=== PATIENT | male | born 1945 | race Caucasian/White ===

== ENCOUNTER → 2017-03-01 | Outpatient (CLI) | payer OTHER ==
[~2017-03-01] MED LIST: ASPI81TA28 PO; ATOR-24 PO; CLOP1TAB15 PO; IBUP-1450 PO; METO-478 PO; MULT-189 PO; MULT-506 PO; OXYC-57 PO; TPRSR50 PO
[2017-03-01 12:29] LABS: HEMATOCRIT 46.2 % (42-52); MEAN CORPUSCULAR HEMOGLOBIN 31.4 pg (25-34); MEAN CORPUSCULAR HGB CONC 33.8 g/dl (32-36); MEAN PLATELET VOLUME 10.4 fL (7.4-10.4); PLATELET COUNT 243 K/uL (130-400); RED BLOOD COUNT 4.97 M/uL (4.7-6.1); WHITE BLOOD COUNT 6.36 K/uL (4.8-10.8)
[2017-03-01 12:57] LABS: ALT/SGPT 22 U/L (12-78); AST/SGOT 9 U/L (15-37); BLOOD UREA NITROGEN 15 mg/dl (7-18); BUN/CREATININE RATIO 13.7 (10-20); CALCIUM 8.5 mg/dl (8.5-10.1); CARBON DIOXIDE 29 mmol/L (21-32); CHLORIDE 107 mmol/L (98-107); GLUCOSE 119 mg/dl (70-99); POTASSIUM 4.2 mmol/L (3.5-5.1); SODIUM 141 mmol/L (136-145)
[2017-03-01 13:08] LABS: ALB/GLOB RATIO 0.9 (0.9-2); ALKALINE PHOSPHATASE 93 U/L (45-117); CHOLESTEROL 115 mg/dl (0-200); CHOLESTEROL/HDL RATIO 2.9; HDL CHOLESTEROL 39 mg/dl; LDL CHOLESTEROL CALCULATED 41 mg/dl; TRIGLYCERIDES 173 mg/dl (0-150); VERY LOW DENSITY LIPOPROT CALC 35 mg/dl
== END | disposition home or self-care (01) ==
LOC: C.LABPVFM 07:56
PROVIDERS: ATTEND Family Medicine
DX: Z01.812 Encounter for preprocedural laboratory examination (principal); R73.01 Impaired fasting glucose; E78.5 Hyperlipidemia, unspecified; E04.2 Nontoxic multinodular goiter; I25.10 Atherosclerotic heart disease of native coronary artery without angina pectoris; Z98.61 Coronary angioplasty status

== ENCOUNTER 2017-03-14 06:18 | Observation (INO) | payer OTHER ==
[~2017-03-14] VITALS: Ht 170.2 cm; Wt 73.0 kg
[~2017-03-14 06:18] MED LIST changes: -METO-478 PO; -MULT-189 PO; -TPRSR50 PO
[2017-03-14] MEDS ORDERED: METO-478 PO (06:47)
[2017-03-14] MEDS ORDERED: MULT-189 PO (06:47)
[2017-03-14 07:06] VITALS: BP 125/85; PULSE 83; TEMP 36.5; O2SAT 97; BMI 25.0
--- NOTE | 2017-03-14 07:20 | History & Physical Bridge Note ---
H&P Re-Evaluation Bridge Note: I have examined the patient, reviewed the History & Physical and in the interval since the performance of the History & Physical I have noted the following changes of clinical significance: Continues to have frequent PVCs. No changes noted
--- NOTE | 2017-03-14 07:23 | Procedure Note ---
Pre-Mod Sedation Assessment General Date of Moderate Sedation: Mar 14, 2017. Review Cardiovascular: + abnormal rhythm (PVCs) Lungs: + wheezing (Mild expiratory wheezing) Airway Class: II Pre-Sedation Airway Assessment Oral Cavity: WNL Able to Visualize Vocal Cords: No Short Thick Neck: No Hx of Sleep Apnea: No Smoking Status: Former Smoker Mallampati Classification: Class III ASA Classification: Class III Procedure Planning Contraindications-for Mod Sed: None Yes Notes The planned sedation has been discussed with the patient and consent obtained. I have identified the patient, determined the appropriateness of sedation and have assessed the patient immediately prior to the procedure. All medicine(s) and interventions are by my order.
[2017-03-14] MEDS ORDERED: MIDAZOLAM HCL 5 MG/ML 1 ML VIAL ONE ×3 (07:37→10:08)
[2017-03-14] MEDS ORDERED: FENTANYL CITRATE INJ 50 MCG/1 ML 2 ML VIAL ONE ×3 (07:38→10:07)
[2017-03-14] MEDS ORDERED: HEPARIN SOD (PORCINE) 1000 UNIT/ML 10 ML VIAL ONE (08:29)
[2017-03-14] MEDS ORDERED: ACETAMINOPHEN 325 MG TAB PO PRN (10:45)
[2017-03-14] MEDS ORDERED: OXYCODONE/ACETAMINOPHEN 5-325 TAB PO PRN (10:45)
--- NOTE | 2017-03-14 10:47 | Cardiology Procedure Brief Nt ---
Preliminary Cardiology Note Procedure Date Mar 14, 2017. Pre-Procedure Diagnosis PVCs cardiomyopathy Post-Procedure Diagnosis same Procedure(s) Performed attempted ablation of PVCs Buncher Hand Williams Disbursement Clerk(s) none Estimated Blood Loss 10cc Preliminary Findings RVOT PVCs which could not be eliminated with ablation in the RVOT Recommendations Bedrest for 4 hours. COntinue medications. discuss ICD Specimens none Complication(s) None Disposition PCU
[2017-03-14 11:00] VITALS: BP 105/76; PULSE 79; TEMP 36.5; O2SAT 92; Ht 170.2 cm; Wt 73.0 kg
[2017-03-14] MEDS ORDERED: ONDANSETRON INJ 2 MG/ML 2 ML VIAL ONE (11:35)
[2017-03-14 11:39] VITALS: BP 113/57; PULSE 87; TEMP 36.9; O2SAT 94
[2017-03-14] MEDS ORDERED: IV FLUIDS COMPLETED PRN (13:30)
--- NOTE | 2017-03-14 14:28 | OPERATIVE REPORT ---
DATE OF OPERATION: 03/14/2017 PROCEDURE PERFORMED: 1. Ablation of ventricular tachycardia. 2. Complete electrophysiologic testing including pacing from the left atrium via the coronary sinus. 3. Three-dimensional electroanatomical mapping. 4. Ultrasound-guided vascular access. STAFF PAINTER AIRBRUSH: Dr. Fidel Kramer. INDICATION: Mr. Eleno Cotto is a 72-year-old gentleman with a history of cardiomyopathy. The patient was noted on outpatient Holter monitoring frequent PVCs and similar morphology, and based on the frequency of his PVCs and the potential for an outflow tract source, he was felt to be a reasonable candidate for an attempt at ablation in hopes that his cardiomyopathy would improve. PROCEDURE IN DETAIL: The patient was informed of risks, benefits and alternatives to the intended procedure. He understood such and wished to proceed. He was taken to the electrophysiology suite in a fasting state. Conscious sedation was administered per protocol and the patient was monitored electrocardiographically throughout today's procedure. The right internal jugular area and right femoral areas were prepped and draped in the usual sterile fashion. These areas were anesthetized using subcutaneous administration of lidocaine solution. Right internal jugular vein was subsequently accessed using modified Seldinger technique under ultrasound guidance and a 5-Indian venous sheath was placed at this site over a guidewire. The right femoral vein was accessed 3 times using modified Seldinger technique. Sheaths were placed over the guidewire at these sites and used to facilitate passage of the EP catheters through their respective chambers under fluoroscopic guidance. These included right ventricular coronary sinus and His bundle catheters. At this point, preparatory mapping catheter was also advanced through the right ventricle and electroanatomical mapping was performed in order to identify the focus of the PVCs. Once I identified, radiofrequency lesions were placed in the power-limited mode with some suppression of the arrhythmia. Due to inability to permanent suppress the PVCs, the ablation was discontinued. Standard electrophysiologic testing was then performed in order to characterize the baseline conduction system prior to removal of the catheters. At the conclusion of the procedure, catheters and sheath were removed, hemostasis was achieved at the access sites using manual pressure. The patient tolerated the procedure well. There were no immediate complications. FINDINGS: 1. Electroanatomical mapping. The patient's PVCs appeared to emanate from the septal portion of the right ventricular outflow tract, approximately 1 cm below the pulmonary valve. Ablation at this site tended to suppress the arrhythmias during power application, but PVCs returned once the power application was discontinued. Ablation was performed at multiple sites in this region with variable degrees of success. POST-ABLATION INTERVALS: Cycle length in the atrium 650 milliseconds, cycle length in the ventricle 666 milliseconds. [place] interval 172 milliseconds, QRS duration 96 milliseconds, QT interval 396 milliseconds, corrected QT interval 485 milliseconds, AH interval 86 milliseconds, HVinterval 58 milliseconds. AV Wenckebach occurred at 340 milliseconds. VA Wenckebach occurred at 350 milliseconds. It should be noted that retrograde conduction was concentric in nature. AV node effective refractory period with programmed stimulation in the atrium was 260 milliseconds. There was no evidence of dual AV margarito physiology. IMPRESSION: 1. Frequent premature ventricular contractions emanating from the right ventricular outflow tract, possibly epicardial or endocardial in the left ventricular outflow tract. 2. Inability to permanently eliminate premature ventricular contractions with endocardial ablation from the right ventricular outflow tract. 3. Normal baseline interval subsequent to ablation. 4. No evidence of accessory pathway conduction or dual atrioventricular margarito physiology. PLAN: The patient will be sent to the OR for a period of monitoring. After 4 hours, he will ambulate. If ambulatory and good hemostasis had been achieved, he will be discharged home with instructions to refrain from heavy lifting for a period of 7 days' time. I attest to the content of the Intraoperative Record and any orders documented therein. Any exceptions are noted below. DARREL
[2017-03-14 15:04] VITALS: BP 130/81; PULSE 79; TEMP 36.4; O2SAT 90
--- NOTE | 2017-03-14 16:16 | Discharge Instructions ---
Discharge Instructions Procedure Procedure Date: Mar 14, 2017. Reason for Visit: Ventricular Tachycardia * To Do*. Discharge Discharge Date: Mar 14, 2017. Discharge Diagnosis: PVC Last Recorded Wt (Kilograms): 73.000 Medications Stopped Medication(s): none Anesthesia Post Anesthesia Instructions: If you have had General Anesthesia or IV Sedation: * Do not drive today. * Resume driving when surgeon permits. * Do not make important decisions or sign legal documents today. * Call surgeon for: 1. Temperature elevations greater than 101 degrees F. 2. Uncontrollable pain. 3. Excessive bleeding. 4. Persistent nausea and vomiting. 5. Medication intolerance (nausea, vomiting or rash). * For nausea and vomiting use only clear liquids such as: tea, soda, bouillon until nausea subsides, then gradually increase diet as tolerated. * If you have any concerns or questions, call your surgeon's office. If physician is unavailable and it is an emergency, call 911 or go to the nearest emergency room. Instructions Activity Recommendations: lifting limitation Return to School/Work: with no limitations Recommended Home Diet: low sodium, low cholesterol Allergies: Coded Allergies: No Known Allergies (Unverified , 04/20/15) Provider Instructions No lifting >10# for 5 days. Follow Up Additional Instructions: May remove bandages in the morning. Keep sites clean and dry but may shower/ bathe normally. Ike Perezy Recommendations: Call your doctor if: * Temperature above 101 degrees * Pain not relieved by pain medicine ordered * There is increased drainage or redness from any incision * You have any unanswered questions or concerns. Your Doctors Instructions noted above were prepared by provider Jatin Kramer. Patient Signature Section: Patient Instructions Signature Page Eleno Cotto Patient (or Guardian) Signature/Date: I have read and understand the instructions given to me by my caregivers. Caregiver/RN/Doctor Signature/Date: The above-named patient and/or guardian has received patient instructions on this date. + Original Patient Signature Page (only) stays with chart. Please make copy for patient.
--- NOTE | 2017-03-14 16:17 | Procedure Note ---
Post-Mod Sedation Assessment General Date of Moderate Sedation Mar 14, 2017. Vital Signs: Vital Signs Past 12 Hours Date Time Temp Pulse Resp B/P Pulse Ox O2 Delivery O2 Flow Rate FiO2 03/14/17 15:04 36.4 79 18 130/81 90 Room Air 03/14/17 11:00 36.5 79 16 105/76 92 Room Air 03/14/17 10:50 68 16 124/78 92 Room Air 03/14/17 10:45 70 16 105/78 96 Room Air 03/14/17 10:40 65 16 118/73 96 Room Air 03/14/17 10:35 74 16 112/74 96 Room Air 03/14/17 10:30 77 16 119/77 96 Room Air 03/14/17 07:06 36.5 83 16 125/85 97 Room Air Review - Discharge Criteria Vital Signs Stable: Yes Alert/Oriented/Conversant: Yes Returned to Baseline Mental St: Yes Nausea Absent/Minimal: Yes Pain/Discomfort/Absent/Minimal: Yes Normal/Baseline Respirations: Yes Active Bleeding?: No Pt Received D/C Instructions: N/A Prescriptions Given: None Specific Proced. D/C Criteria Distal Pulses Present (Cardiac: Yes Groin site assessed-Card Cath: Yes Voided Prior To Discharge: N/A Discharged Patients Adult Escort/Transportation: Yes
--- NOTE | 2017-03-14 16:18 | Procedure Note ---
Post-Moderate Sedation Plan General Date of Moderate Sedation Mar 14, 2017. Vital Signs: Vital Signs Past 12 Hours Date Time Temp Pulse Resp B/P Pulse Ox O2 Delivery O2 Flow Rate FiO2 03/14/17 15:04 36.4 79 18 130/81 90 Room Air 03/14/17 11:00 36.5 79 16 105/76 92 Room Air 03/14/17 10:50 68 16 124/78 92 Room Air 03/14/17 10:45 70 16 105/78 96 Room Air 03/14/17 10:40 65 16 118/73 96 Room Air 03/14/17 10:35 74 16 112/74 96 Room Air 03/14/17 10:30 77 16 119/77 96 Room Air 03/14/17 07:06 36.5 83 16 125/85 97 Room Air Review - Discharge Plan Post Moderate Sedation Plan: On clinical assessment, the patient appears to have tolerated the conscious sedation without complications. Patient is recovering as anticipated. Patient will continue to be monitored by nursing and may be discharged when conscious sedation discharge criteria are met.
[2017-03-14 16:39] VITALS: BP 130/81; PULSE 79; TEMP 36.4; O2SAT 90
--- NOTE | 2017-03-19 10:45 | Discharge Summary ---
Discharge Summary Admission Date: Mar 14, 2017 at 10:46 Discharge Date: Mar 14, 2017 Discharge Disposition: Home Primary Diagnosis: PVCs Procedures: Attempted PVC ablation Discharge Instructions Last Recorded Wt (Kilograms): 73.000 Activity Recommendations: lifting limitation Return to School/Work: no limitations Diet At Discharge: resume previous diet Allergies: Coded Allergies: No Known Allergies (Unverified , 04/20/15) Home Health Services: none Additional Instructions: NO lifting >10# for 7 days Special Care: Call your doctor if: * Temperature above 101 degrees * Pain not relieved by pain medicine ordered * There is increased drainage or redness from any incision * You have any unanswered questions or concerns. Avoid all tobacco products. If you need help to stop smoking, call [place]'s FREE QUITLINE at . This is a free call. Hospital Course Patient underwent uncomplicated attempt at PVC ablation. PVCs could not be eliminated from the right ventricular outflow tract. He will continue on medical therapy and follow-up for discussion regarding implantation of an ICD. Total time spent on discharge = This includes examination of the patient, discharge planning, medication reconciliation, and communication with other providers.
== END 2017-03-14 18:00 | disposition home or self-care (01) ==
LOC: C.EP 06:18 → C.2T 10:46
PROVIDERS: ADMIT Internal Medicine Clinical Cardiac Electrophysiology; ATTEND Internal Medicine Clinical Cardiac Electrophysiology
DX: I42.9 Cardiomyopathy, unspecified (principal); I49.3 Ventricular premature depolarization; I25.10 Atherosclerotic heart disease of native coronary artery without angina pectoris; E78.5 Hyperlipidemia, unspecified; Z79.82 Long term (current) use of aspirin; Z79.899 Other long term (current) drug therapy; I71.4 Abdominal aortic aneurysm, without rupture; Z98.61 Coronary angioplasty status; Z95.828 Presence of other vascular implants and grafts; Z87.891 Personal history of nicotine dependence; Z83.3 Family history of diabetes mellitus; Z82.5 Family history of asthma and other chronic lower respiratory diseases

== ENCOUNTER 2017-03-21 06:31 | Observation (INO) | payer OTHER ==
[2017-03-21] VITALS (11 sets, daily range): BP systolic 107–146; BP diastolic 67–94; PULSE 68–82; TEMP 36.1–36.5; O2SAT 91–95; Ht 170.2 cm; Wt 69.8 kg
[~2017-03-21] VITALS: Ht 170.2 cm; Wt 69.8 kg
[~2017-03-21 06:31] MED LIST changes: +CEFAZOLIN 1000MG/55 ML D5W IV SCH; -CLOP1TAB15 PO; +LACTATED RINGER'S 1000ML 1,000 ML IV SCH; +METO-478 PO; +MULT-189 PO; -OXYC-57 PO; +PATIENT'S HEIGHT AND/OR WEIGHT NEEDED SCH
--- NOTE | 2017-03-21 08:06 | History & Physical Bridge Note ---
H&P Re-Evaluation Bridge Note: I have examined the patient, reviewed the History & Physical and in the interval since the performance of the History & Physical I have noted the following changes of clinical significance:Patient underwent EPS and attempted ablation of PVCs. Thsi was unsuccessful and we have elected to simply proceed with an ICD.
--- NOTE | 2017-03-21 08:07 | Procedure Note ---
Pre-Mod Sedation Assessment General Date of Moderate Sedation: March 21, 2017. Vital Signs: Vital Signs Past 12 Hours Date Time Temp Pulse Resp B/P Pulse Ox O2 Delivery O2 Flow Rate FiO2 03/21/17 07:27 36.1 70 18 146/82 92 Room Air Review Cardiovascular: + abnormal rhythm Pre-Sedation Airway Assessment Oral Cavity: Dentures Able to Visualize Vocal Cords: No Short Thick Neck: No Hx of Sleep Apnea: No Smoking Status: Former Smoker Mallampati Classification: Class III ASA Classification: Class III Procedure Planning Contraindications-for Mod Sed: None Yes (No complications with sedation during his procedure last week. ) Notes The planned sedation has been discussed with the patient and consent obtained. I have identified the patient, determined the appropriateness of sedation and have assessed the patient immediately prior to the procedure. All medicine(s) and interventions are by my order.
[2017-03-21] MEDS ORDERED: MIDAZOLAM HCL 5 MG/ML 1 ML VIAL ONE (08:48)
[2017-03-21] MEDS ORDERED: FENTANYL CITRATE INJ 50 MCG/1 ML 2 ML VIAL ONE (08:48)
[2017-03-21] MEDS ORDERED: LIDOCAINE HCL 1% 20 ML VIAL ONE (08:48)
[2017-03-21] MEDS ORDERED: BUPIVACAINE 0.5 % 5 MG/1 ML MPF 30ML VIAL ONE (08:48)
[2017-03-21] MEDS ORDERED: BACITRACIN OINT 0.9 GM PKT ONE (09:55)
--- NOTE | 2017-03-21 10:06 | Cardiology Procedure Brief Nt ---
Preliminary Cardiology Note Procedure Date March 21, 2017. Pre-Procedure Diagnosis CHF Post-Procedure Diagnosis CHF Procedure(s) Performed dual chamber Medtronic ICD implant Sports Statistician Williams Fish Smoker(s) None Estimated Blood Loss 10cc Medication(s) Fentanyl,versed Preliminary Findings Normal device function Recommendations admit for observation Specimens none Complication(s) None Disposition PCU
[2017-03-21] MEDS ORDERED: ACETAMINOPHEN 325 MG TAB PO PRN (10:15)
[2017-03-21] MEDS: ASPIRIN 81 MG ECTAB PO SCH (11:42)
[2017-03-21] MEDS: METOPROLOL SUCC 25MG EXT REL TAB PO SCH (11:42)
[2017-03-21] MEDS: ATORVASTATIN 40 MG TAB PO SCH (11:42)
[2017-03-21] MEDS ORDERED: IV FLUIDS COMPLETED PRN (11:45)
--- NOTE | 2017-03-21 11:54 | OPERATIVE REPORT ---
DATE OF OPERATION: 03/21/2017 PROCEDURE PERFORMED: Implantation of dual chamber implantable cardioverter-defibrillator. STAFF HOISTING PILE DRIVING ENGINEER: Dr. Fidel Kramer. INDICATION: Mr. Eleno Cotto is a 72-year-old gentleman with a history of ischemic cardiomyopathy. He has a persistently low ejection fraction less than 35%. He is on optimal and guideline directed medical therapy. He has not had myocardial infarction in the past 40 days nor had any revascularization in the last 90 days. He has an anticipated longevity greater than 1 year and therefore was felt to be a good candidate for implantation of ICD as primary prevention against sudden cardiac . A dual chamber device was selected today as the patient will require rate support for both use of beta blockers as well as PVC suppression. PROCEDURE IN DETAIL: The patient was informed of the risks, benefits, and alternatives to the intended procedure. He understood such and would like to proceed. He was taken to the electrophysiology suite in a fasting state. A preoperative antibiotic had been administered. The patient was monitored electrocardiographic throughout today's procedure and conscious sedation was administered per protocol. The left deltopectoral area was prepped and draped in usual sterile fashion. This area was anesthetized using subcutaneous administration of Marcaine and xylocaine solution. An incision was made and dissection carried down to the prepectoralis fascia using sharp dissection. Electrocautery was also employed for dissection as well as for hemostasis. The device pocket was fashioned in the tissues above the pectoral muscles. Subsequent to this maneuver the left axillary vein was accessed twice using modified Seldinger technique. A sheath was placed over guidewire at this site and used to facilitate passage of the leads through their respective chambers under fluoroscopic guidance. This included a right ventricular and right atrial leads. Adequate sensing and threshold parameters were obtained prior to active fixation of this lead to the endocardial surface. The proximal portion of the leads was then sutured to the prepectoral fascia using nonabsorbable suture. The device pocket was irrigated with an antibiotic solution. The leads were then attached to the device. The device and leads were then placed in the pocket. The pocket was closed with 3 layers of absorbable suture. Steri-Strips and sterile dressing were applied. The device was tested noninvasively prior to conclusion of the procedure. The patient tolerated the procedure well. There were no immediate complications. EQUIPMENT USED: 1. New pulse generally skeiner Cyanto, model #AUAF1Q8, serial #[id number]. 2. Right atrial lead skeiner Medtronic, model #4076, serial #[id number]. 3. Right ventricular lead skeiner Medtronic, model #6947M, serial #[id number]. MEASURE DATA: 1. Right atrial lead, P-waves measured 2 millivolts, pacing threshold was 0.5 volts at 0.4 milliseconds with a pacing impendence of 563 ohms. 2. Right ventricular lead R-waves measured 7.9 millivolts, pacing threshold was 0.5 volts at 0.4 milliseconds with a pacing impedance of 574 ohms. IMPRESSION: Successful implantation of dual chamber implantable cardioverter-defibrillator. PLAN: The patient will be monitored in the esparza overnight. Additional dose of antibiotics will be administered. Chest x-ray and reinterrogation of the device will be performed in the morning. Should all parameters be adequate and the patient be feeling well he will be considered for discharge at that time. I attest to the content of the Intraoperative Record and any orders documented therein. Any exceptio ns are noted below.
[2017-03-21] MEDS: CEFAZOLIN IV 1,000 MG in DEXTROSE 5% 50ML 50 ML IV SCH ×2 (16:05→23:21)
[2017-03-21] MEDS: OXYCODONE/ACETAMINOPHEN 5-325 TAB PO PRN ×2 (16:46→23:06)
[2017-03-22 03:07] VITALS: BP 120/75; PULSE 77; TEMP 36.5; O2SAT 92
[2017-03-22 04:00] VITALS: O2SAT 91
[2017-03-22 07:48] VITALS: BP 135/74; PULSE 69; TEMP 36.7; O2SAT 93
[2017-03-22] MEDS ORDERED: METO-478 PO (07:51)
--- NOTE | 2017-03-22 07:54 | Discharge Instructions ---
Discharge Instructions Date of Service March 22, 2017. Admission Reason for Admission: Pvc's * Discharge Discharge Diagnosis / Problem: ICD implant Discharge Goals Goal(s): Improve disease control Activity Recommendations Activity Limitations: as noted below Lifting Limitations: none No lifting left arm above shoulder or behind neck for 6 weeks. Keep wound dry until f/u next week. . Instructions / Follow-Up Instructions / Follow-Up f/u cardiology clinic for nurse wound check 1 week Current Hospital Diet Patient's current hospital diet: AHA Diet (Heart Healthy), Low Sodium Diet (2gm Na) Discharge Diet Recommended Diet: AHA Diet (Heart Healthy), Low Sodium Diet (2gm Na) Fluid Restriction: None Procedures Procedures Performed: ICD implant Pending Studies Studies pending at discharge: no Laboratory Results Lipid Panel Test 03/01/17 08:03 Range/Units Triglycerides Level 173 H 0-150 mg/dl Cholesterol Level 115 0-200 mg/dl HDL Cholesterol 39 mg/dl Cholesterol/HDL Ratio 2.9 LDL Cholesterol, Calculated 41 mg/dl Medical Emergencies . Who to Call and When: Medical Emergencies: If at any time you feel your situation is an emergency, please call 911 immediately. . Non-Emergent Contact Non-Emergency issues call your: Aerial Gunner Call Non-Emergent contact if: you have a fever, your pain is not controlled, your pain is worsening, wound has increased drainage, wound has increased redness, wound has increased pain . . "Provider Documentation" section prepared by Jatin Kramer. . VTE Core Measure Inpt VTE Proph given/why not?: Treatment not indicated
[2017-03-22] MEDS: METOPROLOL SUCC 25MG EXT REL TAB PO SCH (07:56)
[2017-03-22] MEDS: ATORVASTATIN 40 MG TAB PO SCH (07:56)
[2017-03-22] MEDS: ASPIRIN 81 MG ECTAB PO SCH (07:56)
[2017-03-22] MEDS: OXYCODONE/ACETAMINOPHEN 5-325 TAB PO PRN (07:57)
[2017-03-22] MEDS ORDERED: TPRSR50 PO (07:59)
[2017-03-22] MEDS: CEFAZOLIN IV 1,000 MG in DEXTROSE 5% 50ML 50 ML IV SCH (07:59)
--- NOTE | 2017-03-22 08:00 | Procedure Note ---
Post-Moderate Sedation Plan General Date of Moderate Sedation March 22, 2017. Vital Signs: Vital Signs Past 12 Hours Date Time Temp Pulse Resp B/P Pulse Ox O2 Delivery O2 Flow Rate FiO2 03/22/17 04:00 91 Room Air 03/22/17 03:07 36.5 77 19 120/75 92 Room Air 03/21/17 23:59 91 Room Air 03/21/17 23:04 36.5 79 18 135/94 91 Room Air 03/21/17 20:00 Room Air Review - Discharge Plan Post Moderate Sedation Plan: On clinical assessment, the patient appears to have tolerated the conscious sedation without complications. Patient is recovering as anticipated. Patient will continue to be monitored by nursing and may be discharged when conscious sedation discharge criteria are met.
--- NOTE | 2017-03-22 08:01 | DIAGNOSTIC IMAGING REPORT ---
TWO VIEW CHEST CLINICAL HISTORY: Pacemaker implantation. FINDINGS: PA and lateral chest radiographs are compared to study dated 04/20/2015. The PA view is degraded by patient rotation. A 2-lead cardiac AICD is new from 2014. This largely obscures the left upper chest. Leads project over the right atrial appendage and the right ventricle. The heart is enlarged. The pulmonary vasculature is noncongested. A hiatal hernia is observed. Emphysema and chronic interstitial thickening are similar to previous. No airspace consolidation or pleural effusion is identified. There is no pneumothorax. The skeletal structures are osteopenic. Degenerative change and scoliosis are noted in the thoracic spine. IMPRESSION: 1. A 2-lead cardiac AICD has been implanted as detailed above. No pneumothorax is seen post procedure. 2. There is no radiographic evidence of congestive failure. 3. Emphysema. Electronically signed by: Aniket Stacy M.D. 03/22/2017 7:59 AM Dictated Date/Time: 03/22/2017 7:57 AM
--- NOTE | 2017-03-22 08:03 | Discharge Summary ---
Discharge Summary Admission Date: March 21, 2017 at 11:04 Discharge Date: March 22, 2017 Discharge Disposition: Home Primary Diagnosis: cardiomyopathy Procedures: Medtronic dual chamber ICD implant Discharge Instructions Last Recorded Wt (Kilograms): 69.800 Activity Recommendations: limitations as noted below, shower/bathe limit Return to School/Work: no limitations Diet At Discharge: resume previous diet, low sodium Allergies: Coded Allergies: No Known Allergies (Unverified , 03/21/17) Home Health Services: none Special Care: Call your doctor if: * Temperature above 101 degrees * Pain not relieved by pain medicine ordered * There is increased drainage or redness from any incision * You have any unanswered questions or concerns. Avoid all tobacco products. If you need help to stop smoking, call [place]'s FREE QUITLINE at . This is a free call. Admission Physical Exam Wound with some ecchymosis. CXR with good lead position and no PTX. Interrogation reveals normal device function Hospital Course Successful implant of dual chamber ICD without complication Total time spent on discharge = This includes examination of the patient, discharge planning, medication reconciliation, and communication with other providers.
[2017-03-22 09:44] VITALS: BP 135/74; PULSE 69; TEMP 36.7; O2SAT 93
== END 2017-03-22 10:20 | disposition home or self-care (01) ==
LOC: C.ACU 06:31 → C.2T 11:04
PROVIDERS: ADMIT Internal Medicine Clinical Cardiac Electrophysiology; ATTEND Internal Medicine Clinical Cardiac Electrophysiology
DX: I25.5 Ischemic cardiomyopathy (principal); I25.10 Atherosclerotic heart disease of native coronary artery without angina pectoris; I49.3 Ventricular premature depolarization; Z98.61 Coronary angioplasty status; I50.9 Heart failure, unspecified; Z87.891 Personal history of nicotine dependence; E78.5 Hyperlipidemia, unspecified; R73.01 Impaired fasting glucose; E04.2 Nontoxic multinodular goiter; I73.9 Peripheral vascular disease, unspecified; J44.9 Chronic obstructive pulmonary disease, unspecified; Z79.82 Long term (current) use of aspirin; Z79.899 Other long term (current) drug therapy; R01.1 Cardiac murmur, unspecified

== ENCOUNTER → 2017-09-05 | Outpatient (CLI) | payer OTHER ==
[~2017-09-05] MED LIST changes: -CEFAZOLIN 1000MG/55 ML D5W IV SCH; -LACTATED RINGER'S 1000ML 1,000 ML IV SCH; -METO-478 PO; -PATIENT'S HEIGHT AND/OR WEIGHT NEEDED SCH; +TPRSR50 PO
[2017-09-05 12:40] LABS: ESTIMATED AVERAGE GLUCOSE 128 mg/dl; HA1C FLAG Normal (Normal)
[2017-09-05 13:02] LABS: ALT/SGPT 22 U/L (12-78); AST/SGOT 12 U/L (15-37); BLOOD UREA NITROGEN 18 mg/dl (7-18); CALCIUM 8.8 mg/dl (8.5-10.1); CARBON DIOXIDE 29 mmol/L (21-32); CHLORIDE 107 mmol/L (98-107); CREATININE 1.13 mg/dl (0.60-1.40); GLUCOSE 125 mg/dl (70-99); POTASSIUM 4.1 mmol/L (3.5-5.1); SODIUM 140 mmol/L (136-145)
[2017-09-05 13:05] LABS: ALB/GLOB RATIO 0.9 (0.9-2); ALKALINE PHOSPHATASE 113 U/L (45-117); CHOLESTEROL 114 mg/dl (0-200); HDL CHOLESTEROL 38 mg/dl; LDL CHOLESTEROL CALCULATED 51 mg/dl; TRIGLYCERIDES 126 mg/dl (0-150); VERY LOW DENSITY LIPOPROT CALC 25 mg/dl
== END | disposition home or self-care (01) ==
LOC: C.LABPVFM 08:14
PROVIDERS: ATTEND Family Medicine
DX: R73.01 Impaired fasting glucose (principal); E78.5 Hyperlipidemia, unspecified; I71.4 Abdominal aortic aneurysm, without rupture; I25.10 Atherosclerotic heart disease of native coronary artery without angina pectoris; E04.2 Nontoxic multinodular goiter

== ENCOUNTER → 2018-03-06 | Outpatient (CLI) | payer OTHER ==
[2018-03-06 13:17] LABS: ALBUMIN 3.4 gm/dl (3.4-5.0); ALT/SGPT 23 U/L (12-78); AST/SGOT 12 U/L (15-37); BLOOD UREA NITROGEN 17 mg/dl (7-18); CALCIUM 8.7 mg/dl (8.5-10.1); CARBON DIOXIDE 28 mmol/L (21-32); CHOLESTEROL 100 mg/dl (0-200); CREATININE 1.24 mg/dl (0.60-1.40); GLUCOSE 128 mg/dl (70-99); POTASSIUM 4.3 mmol/L (3.5-5.1); SODIUM 141 mmol/L (136-145)
[2018-03-06 13:28] LABS: ALKALINE PHOSPHATASE 105 U/L (45-117); LDL CHOLESTEROL CALCULATED 37 mg/dl; TOTAL PROTEIN 7.4 gm/dl (6.4-8.2)
== END | disposition home or self-care (01) ==
LOC: C.LABPVFM 08:23
PROVIDERS: ATTEND Family Medicine
DX: R73.01 Impaired fasting glucose (principal); E78.5 Hyperlipidemia, unspecified; I71.4 Abdominal aortic aneurysm, without rupture; I25.10 Atherosclerotic heart disease of native coronary artery without angina pectoris; E04.2 Nontoxic multinodular goiter; J44.9 Chronic obstructive pulmonary disease, unspecified

== ENCOUNTER 2022-06-23 08:41 | Inpatient (IN) ==
--- NOTE | 2022-06-23 09:00 | Emergency Department Note ---
Impression & Plan Acute CVA (cerebrovascular accident), COPD (chronic obstructive pulmonary disease), Thrombolytic therapy administered within 2 hours of onset of symptoms ED Provider Note CHIEF COMPLAINT: Shortness of breath, stroke alert HISTORY OF PRESENT ILLNESS: This 77-year-old male patient presents to the emergency department by ambulance after a call for shortness of breath that began at 0700. Patient has a history of COPD and was given 2 DuoNeb treatments by the S crew. ALS arrived and gave the patient 125 mg of IV Solu-Medrol. The patient developed some right arm ataxia and aphasia. Patient confirmed that this was not his baseline. He has no history of strokes. He does not take blood thinners. He does have a relator secondary to a failed ablation for PVCs, ischemic cardiomyopathy. He has a history of CAD status post stent, AAA, COPD, hyperlipidemia and is diabetic. Onset of symptoms was in front of EMS just prior to arrival around 8:20 AM. He denies any recent trauma or falls. He does not take any blood thinners but does take baby aspirin. REVIEW OF SYSTEMS: A review of systems was performed with positives and pertinent negatives listed in the history of present illness. 10 systems were reviewed and are otherwise negative. ALLERGIES: see below MEDICATIONS: see below PMH: see below SOCIAL HISTORY: see below DDx: Infection, dehydration, metabolic abnormality, hypo/hyperglycemia, electrolyte disturbance, anemia, hypoxia, cardiac sources, intracerebral event, toxicologic, neurologic, as well as other pathologies. PHYSICAL EXAM: Vital signs reviewed. General: Chronically ill-appearing 77-year-old male in no significant distress. HEENT: No scleral icterus, PERRLA, neck supple. Atraumatic. Cardiovascular: Regular rate and rhythm, no extra sounds. Pulmonary: Clear to auscultation bilaterally, normal work of breathing. Abdomen: Soft, nontender, nondistended, positive bowel sounds. Musculoskeletal: Atraumatic, no peripheral edema. Neurologic: Awake, alert and seemingly oriented but states he is "60 and in a clinic... I just cannot seem to get those words out." Patient is able to follow commands. Ataxia with the right upper extremity on [id number]. Cranial nerves II through XII are grossly intact. 3/5 strength in the right upper extre mity, full strength in the left upper extremity. Equal strength in the bilateral lower extremities. Skin: Warm, dry, no rash EMERGENCY DEPARTMENT COURSE/MDM: Patient was evaluated and appeared to be in no significant distress. The patient was pleasant and able to answer questions but occasionally would speak in word salad, particularly when trying to answer questions with intention such as birthdate or location. The right upper extremity was ataxic and weak. A stroke alert was called at the time of presentation to the emergency department by nursing staff. The patient symptoms began in front of EMS after a call for shortness of breath/COPD exacerbation. BLS crew had contacted the ALS crew who then recognize the symptoms. It was unclear if this was secondary to the patient's breathing difficulties/hypoxia or if this was new onset stroke. Upon presentation to the emergency department, family was here and the patient was able to clearly state that this was new. After consultation with the telestroke attending, the family had agreed to thrombolytics. Due to the confusion of the situation being the shortness of breath call to 911 and the symptoms in transit, there was a slight delay in thrombolytic administration however the patient did receive thrombolytics at 78 minutes after presentation to the emergency department. It was felt that the patient did not need to be transferred to [facility] and could be managed at our facility after consultation with [place] Ar[place] [facility] [place] and family were aware of this plan and agreed. MONITORING: An order for cardiac monitoring was placed and the patient is noted to be in a sinus rhythm with frequent PVCs at 91 beats per minute. RADIOLOGY: see below EKG: Sinus rhythm with frequent PVCs in a pattern of bigeminy at 94 bpm. Left atrial enlargement, left axis deviation, previous inferior infarct. QTC is 475. When compared to previous dated March 21, 2017, sinus rhythm has replaced atrially paced rhythm. DISPOSITION: Admit I have personally spent 45 minutes of critical care time in the direct management of this patient. This was a life/limb threatening event. This 45 minutes is in excess of all separately billable procedures. Past Med/Surg History Medical History Abnormal stress echo Small cell lung cancer Surgical History History of AAA (abdominal aortic aneurysm) repair History of cataract surgery History of pacemaker S/P ICD (internal cardiac defibrillator) procedure Family History Father Emphysema of lung Mother Lupus Sister Diabetes Denies family history of Ovarian cancer Prostate cancer Myocardial infarction Breast cancer Colorectal cancer Social History Smoking Status: Former smoker Age Started Using Tobacco: 16; Age Quit Using Tobacco: 71; packs per day: 1; Second Hand Exposure: No; Hx Alcohol Use: Yes Alcohol type: beer Hx Substance Use: No Preferred Language: Latvian Communication Ability: Effective Hearing Ability: Use of Hearing Aid Production Service Manager Required: No Beliefs That Will Affect Care: None marital status: Current Living Situation: Spouse and Family current occupational status: retired How many Children do You have: 2 Feels Safe at Home: Yes Childhood Exposure to Second-Hand Smoke: Yes caffeine: Yes Dental Care, Regularly: Yes Physical Activity Frequency: Daily Physical Activity Frequency Comment: Walking Seatbelt Use: always Sunscreen Use: Yes Assistive Devices: None Allergies Allergies Allergy/AdvReac Type Severity Reaction Status Date / Time No Known Allergies Allergy Unverified 02/08/22 10:06 Home Meds Home Medications Medication Instructions Recorded Confirmed aspirin 81 mg tablet 81 mg PO DAILY #30 tabs 07/06/19 02/08/22 multivitamin 1 tab PO DAILY 07/06/19 02/08/22 vit C,E,zinc,copper-ysiul0n 250 1 cap PO DAILY 07/06/19 02/08/22 mg-lutein 5 mg-zeaxanthin 1 mg capsule (Ocuvite Adult 50 Plus) ibuprofen 600 mg tablet 1,200 mg PO QID PRN pain 02/08/22 02/08/22 Previous Rx's Medication Instructions Recorded atorvastatin 40 mg tablet 40 mg PO DAILY #90 tabs 03/20/22 fluticasone fur. 100 mcg-umeclid 1 inh inhalation DAILY #90 ea 03/20/22 62.5 mcg-vilant 25 mcg inhalat.powder (Trelegy Ellipta) metoprolol succinate 25 mg 25 mg PO DAILY #90 tabs 03/20/22 tablet,extended release 24 hr omeprazole 20 mg capsule,delayed 20 mg PO DAILY #90 caps 03/20/22 release albuterol sulfate 90 mcg/actuation See Rx Instructions inhalation QID 05/07/22 aerosol inhaler PRN shortness of breath or wheezing #18 grams valsartan 40 mg tablet 40 mg PO BID #30 tabs 06/29/22 Results & Data (ED) Vital Signs Vital Signs - 24 hr 06/23/22 08:51 06/23/22 09:05 06/23/22 09:34 Temperature 36.9 C Temperature Source Oral Pulse Rate 74 Pulse Rate from SpO2 Sensor Respiratory Rate 18 Respiratory Effort / Characteristics Non-Labored Spontaneous SOB on Exertion Respiratory Depth Normal Respiratory Pattern Regular Tachypnea Blood Pressure 121/81 Blood Pressure Mean 94 Pulse Oximetry 89 L 89 L Oxygen Delivery Method Room Air Room Air Nasal Cannula Oxygen Flow Rate 0 Sepsis Recent Fever Within 48 Hours No Sepsis New/Unexplained Change in Mental Status No Sepsis Action Taken by Nursing No Action Required Oxygen Flow Rate - Titration 3 Pulse Oximetry Post Tiitration 95 06/23/22 08:49 06/23/22 09:05 06/23/22 09:11 Temperature Temperature Source Pulse Rate 95 H 91 H Pulse Rate from SpO2 Sensor Respiratory Rate 20 25 H Respiratory Effort / Characteristics Respiratory Depth Respiratory Pattern Blood Pressure 130/71 Blood Pressure Mean 90 Pulse Oximetry 92 95 Oxygen Delivery Method Oxygen Flow Rate 3 3 Sepsis Recent Fever Within 48 Hours Sepsis New/Unexplained Change in Mental Status Sepsis Action Taken by Nursing Oxygen Flow Rate - Titration Pulse Oximetry Post Tiitration 06/23/22 09:11 06/23/22 09:15 06/23/22 09:17 Temperature Temperature Source Pulse Rate 90 89 90 Pulse Rate from SpO2 Sensor Respiratory Rate 24 28 H 25 H Respiratory Effort / Characteristics Respiratory Depth Respiratory Pattern Blood Pressure Blood Pressure Mean Pulse Oximetry 94 92 93 Oxygen Delivery Method Oxygen Flow Rate 3 3 3 Sepsis Recent Fever Within 48 Hours Sepsis New/Unexplained Change in Mental Status Sepsis Action Taken by Nursing Oxygen Flow Rate - Titration Pulse Oximetry Post Tiitration 06/23/22 09:17 06/23/22 09:30 06/23/22 09:31 Temperature Temperature Source Pulse Rate 90 Pulse Rate from SpO2 Sensor Respiratory Rate 25 H Respiratory Effort / Characteristics Respiratory Depth Respiratory Pattern Blood Pressure 126/73 140/86 Blood Pressure Mean 90 104 Pulse Oximetry 93 Oxygen Delivery Method Oxygen Flow Rate 3 Sepsis Recent Fever Within 48 Hours Sepsis New/Unexplained Change in Mental Status Sepsis Action Taken by Nursing Oxygen Flow Rate - Titration Pulse Oximetry Post Tiitration 06/23/22 09:31 Temperature Temperature Source Pulse Rate 85 Pulse Rate from SpO2 Sensor 80 Respiratory Rate 17 Respiratory Effort / Characteristics Respiratory Depth Respiratory Pattern Blood Pressure Blood Pressure Mean Pulse Oximetry 90 Oxygen Delivery Method Oxygen Flow Rate 3 Sepsis Recent Fever Within 48 Hours Sepsis New/Unexplained Change in Mental Status Sepsis Action Taken by Nursing Oxygen Flow Rate - Titration Pulse Oximetry Post Tiitration Home Medications Current Medication List: was personally reviewed by me Laboratory Data Attestation: I reviewed the patient's lab results. Result diagrams: 06/29/22 08:54 06/29/22 08:54 Lab Results 06/23/22 06/23/22 06/23/22 Range/Units 08:55 08:55 08:55 WBC 6.14 (4.8-10.8) K/ul RBC 4.36 L (4.63-6.08) M/uL Hgb 11.5 L (14.0-18.0) g/dl Hct 36.2 L (40.1-51.0) % MCV 83.0 (80.0-100.0) fL MCH 26.4 (25.0-34.0) pg MCHC 31.8 L (32.0-36.0) g/dL RDW Std Deviation 52.8 H (36.4-46.3) fL RDW Coeff of Joshua 17.3 H (11.5-14.5) % Plt Count 324 (130-400) K/uL MPV 9.2 L (9.4-12.4) fL Immature Gran % (Auto) 0.3 % Neut % (Auto) 59.3 % Lymph % (Auto) 26.1 % [place] % (Auto) 11.2 % Eos % (Auto) 2.4 % Baso % (Auto) 0.7 % Neut # (Auto) 3.64 (1.4-6.5) K/uL Lymph # (Auto) 1.60 (1.2-3.4) K/uL [place] # (Auto) 0.69 (0.24-0.82) K/uL Eos # (Auto) 0.15 (0-0.50) K/uL Baso # (Auto) 0.04 (0-0.2) K/uL Immature Gran # (Auto) 0.02 (0.00-0.02) K/uL PT 11.7 (9.0-12.0) Seconds INR 1.1 (0.9-1.1) APTT 25.7 (21.0-31.0) Seconds PTT Ratio 0.9 Sodium 142 (136-145) mmol/L Potassium 3.8 (3.5-5.1) mmol/L Chloride 112 H (98-107) mmol/L Carbon Dioxide 22 (21-32) mmol/L Anion Gap 8 (3-11) BUN 17 (6-23) mg/dl Creatinine 0.78 (0.6-1.4) mg/dl Est Cr Clr Drug Dosing 64.4 ml/min Est GFR ( Amer) 100.9 ml/min Est GFR (Non-Af Amer) 87.1 ml/min BUN/Creatinine Ratio 21.8 H (10-20) Glucose 124 H (70-99(Fasting)) mg/dl Calcium 8.6 (8.5-10.1) mg/dl Magnesium 1.8 (1.7-2.4) mg/dl Total Bilirubin 0.6 (0.2-1.0) mg/dl AST 17 (13-39) U/L ALT 16 (7-52) U/L Alkaline Phosphatase 100 (34-104) U/L Troponin I High Sens 23.2 H (0-20) pg/ml Total Protein 6.4 (6.0-8.3) gm/dl Albumin 3.3 L (3.4-5.0) gm/dl Globulin 3.1 (2.5-4.0) gm/dl Albumin/Globulin Ratio 1.1 (0.9-2) Procalcitonin (0-0.5) ng/ml SARS-CoV-2, RNA, NAAT (NEGATIVE) 06/23/22 06/23/22 Range/Units 09:03 09:08 WBC (4.8-10.8) K/ul RBC (4.63-6.08) M/uL Hgb (14.0-18.0) g/dl Hct (40.1-51.0) % MCV (80.0-100.0) fL MCH (25.0-34.0) pg MCHC (32.0-36.0) g/dL RDW Std Deviation (36.4-46.3) fL RDW Coeff of Joshua (11.5-14.5) % Plt Count (130-400) K/uL MPV (9.4-12.4) fL Immature Gran % (Auto) % Neut % (Auto) % Lymph % (Auto) % [place] % (Auto) % Eos % (Auto) % Baso % (Auto) % Neut # (Auto) (1.4-6.5) K/uL Lymph # (Auto) (1.2-3.4) K/uL [place] # (Auto) (0.24-0.82) K/uL Eos # (Auto) (0-0.50) K/uL Baso # (Auto) (0-0.2) K/uL Immature Gran # (Auto) (0.00-0.02) K/uL PT (9.0-12.0) Seconds INR (0.9-1.1) APTT (21.0-31.0) Seconds PTT Ratio Sodium (136-145) mmol/L Potassium (3.5-5.1) mmol/L Chloride (98-107) mmol/L Carbon Dioxide (21-32) mmol/L Anion Gap (3-11) BUN (6-23) mg/dl Creatinine (0.6-1.4) mg/dl Est Cr Clr Drug Dosing ml/min Est GFR ( Amer) ml/min Est GFR (Non-Af Amer) ml/min BUN/Creatinine Ratio (10-20) Glucose (70-99(Fasting)) mg/dl Calcium (8.5-10.1) mg/dl Magnesium (1.7-2.4) mg/dl Total Bilirubin (0.2-1.0) mg/dl AST (13-39) U/L ALT (7-52) U/L Alkaline Phosphatase (34-104) U/L Troponin I High Sens (0-20) pg/ml Total Protein (6.0-8.3) gm/dl Albumin (3.4-5.0) gm/dl Globulin (2.5-4.0) gm/dl Albumin/Globulin Ratio (0.9-2) Procalcitonin < 0.05 (0-0.5) ng/ml SARS-CoV-2, RNA, NAAT NEGATIVE (NEGATIVE) Administered Medications Discontinued Medications Acetaminophen (Acetaminophen 325 Mg Tab) 650 mg PO Q4H PRN PRN Reason: Pain Stop: 07/24/22 16:46 Last Admin: 06/24/22 17:00 Dose: 650 mg Documented By: CURT Albuterol (Albut/Ipratrop 3mg/0.5mg Neb 3 Ml Vial) 3 ml NEB Q2R PRN PRN Reason: Shortness of Breath/Wheezing Stop: 07/23/22 11:51 Last Admin: 06/25/22 14:55 Dose: 3 ml Documented By: Admin: 06/24/22 19:20 Dose: 3 ml Documented By: GARRETT Aspirin (Aspirin 81 Mg Ectab) [facility] Stop: 07/25/22 08:59 Last Admin: 06/29/22 08:40 Dose: 81 mg Documented By: Admin: 06/28/22 09:40 Dose: 81 mg Documented By: Admin: 06/27/22 10:59 Dose: 81 mg Documented By: Admin: 06/26/22 09:05 Dose: 81 mg Documented By: [id number] Admin: 06/25/22 10:52 Dose: 81 mg Documented By: LEO Atorvastatin Calcium (Atorvastatin 40 Mg Tab) 40 mg PO DAILY [facility] Stop: 07/24/22 08:59 Last Admin: 06/29/22 08:41 Dose: 40 mg Documented By: Admin: 06/28/22 09:41 Dose: 40 mg Documented By: Admin: 06/27/22 10:59 Dose: 40 mg Documented By: Admin: 06/26/22 09:05 Dose: 40 mg Documented By: [id number] Admin: 06/25/22 10:52 Dose: 40 mg Documented By: Admin: 06/24/22 09:50 Dose: 40 mg Documented By: CURT Calcium Carbonate (Calcium Carbonate 500 Mg Chewable Tab) 500 mg PO Q6H PRN PRN Reason: Indigestion Stop: 07/26/22 18:20 Last Admin: 06/26/22 19:46 Dose: 500 mg Documented By: SHAJI Enoxaparin Sodium (Enoxaparin Inj 40 Mg/0.4 Ml Syr) 40 mg SQ QAM [facility] Stop: 07/26/22 08:59 Last Admin: 06/29/22 09:49 Dose: 40 mg Documented By: Admin: 06/28/22 11:02 Dose: 40 mg Documented By: Admin: 06/27/22 12:32 Dose: 40 mg Documented By: Admin: 06/26/22 09:05 Dose: 40 mg Documented By: [id number] Fentanyl Citrate (Fentanyl Citrate 100 Mcg/2 Ml Vial) Confirm Administered Dose 200 mcg .ROUTE .STK-MED ONE Stop: 06/25/22 12:36 Last Admin: 06/25/22 14:17 Dose: Not Given Documented By: LEO Fluticasone Furoate (Fluticasone Furoate 100mcg 14 Puffs/Inhaler) 1 puffs INH DAILY KEN; Protocol Stop: 07/24/22 08:59 Last Admin: 06/29/22 08:39 Dose: 1 puffs Documented By: Admin: 06/28/22 09:42 Dose: 1 puffs Documented By: Admin: 06/27/22 10:59 Dose: 1 puffs Documented By: Admin: 06/26/22 09:05 Dose: 1 puffs Documented By: [id number] Admin: 06/25/22 10:51 Dose: 1 puffs Documented By: Admin: 06/24/22 09:51 Dose: 1 puffs Documented By: CURT Sodium Chloride (Nss 1000ml) 1,000 mls @ 50 mls/hr IV .Q20H KEN Stop: 07/23/22 08:59 Last Admin: 06/24/22 09:49 Dose: Not Given Documented By: Infusion: 06/24/22 05:59 Dose: 0 mls/hr Documented By: Admin: 06/23/22 09:36 Dose: 50 mls/hr Documented By: YAMILEX Tenecteplase 14 mg/ Syringe 2.8 mls @ 33.6 mls/min IV NOW ONE; Protocol Stop: 06/23/22 10:10 Last Admin: 06/23/22 10:13 Dose: 33.6 mls/min Documented By: YAMILEX Co-signed By: SHAJI(2) Parenteral Electrolytes (Normosol-R) 1,000 mls @ 70 mls/hr IV .[id number] KEN Stop: 07/23/22 11:59 Last Infusion: 06/24/22 12:04 Dose: 0 mls/hr Documented By: Admin: 06/24/22 01:37 Dose: 70 mls/hr Documented By: Infusion: 06/24/22 01:37 Dose: 70 mls/hr Documented By: Admin: 06/23/22 12:37 Dose: 70 mls/hr Documented By: CURT Pantoprazole Sodium 40 mg/ (Syringe) 10 mls @ 5 mls/min IV NOW ONE Stop: 06/23/22 12:01 Last Admin: 06/23/22 12:38 Dose: 5 mls/min Documented By: CURT Promethazine HCl 12.5 mg/ (Sodium Chloride) 50.5 mls @ 202 mls/hr IV Q6H PRN PRN Reason: Nausea And Vomiting Stop: 07/25/22 08:08 Last Infusion: 06/26/22 13:46 Dose: 0 mls/hr Documented By: [id number] Admin: 06/26/22 13:20 Dose: 202 mls/hr Documented By: Infusion: 06/25/22 09:00 Dose: 0 mls/hr Documented By: [email or web address] Admin: 06/25/22 08:46 Dose: 202 mls/hr Documented By: LEO Ioversol (Optiray 320 125ml) 120 ml IV ONCE ONE Stop: 06/23/22 09:06 Last Admin: 06/23/22 09:05 Dose: 120 ml Documented By: FAN Ioversol (Optiray 320 100ml) 93 ml IV ONCE ONE Stop: 06/25/22 10:19 Last Admin: 06/25/22 10:18 Dose: 93 ml Documented By: JOCELINE Ioversol (Optiray 320 100ml) 95 ml IV ONCE ONE Stop: 06/26/22 16:19 Last Admin: 06/26/22 16:19 Dose: 95 ml Documented By: JOCELINE Lidocaine HCl (Lidocaine 2% Mpf Local 5 Ml Vial) Confirm Administered Dose 5 ml INFIL .STK-MED ONE Stop: 06/28/22 12:56 Last Admin: 06/28/22 15:17 Dose: Not Given Documented By: ELVIA Meclizine HCl (Meclizine Hcl 25 Mg Tab) 25 mg PO NOW STA Stop: 06/25/22 08:16 Last Admin: 06/25/22 08:47 Dose: 25 mg Documented By: GPF Metoprolol Succinate (Metoprolol Succ 25mg Ext Rel Tab) [facility] Stop: 07/26/22 10:14 Last Admin: 06/29/22 08:38 Dose: Not Given Documented By: Admin: 06/28/22 09:41 Dose: 12.5 mg Documented By: Admin: 06/27/22 10:59 Dose: 12.5 mg Documented By: Admin: 06/26/22 10:52 Dose: 12.5 mg Documented By: [id number] Midazolam HCl (Midazolam Hcl 5 Mg/Ml 1 Ml Vial) Confirm Administered Dose 10 mg .ROUTE .STK-MED ONE Stop: 06/25/22 12:36 Last Admin: 06/25/22 14:17 Dose: Not Given Documented By: GPLalitha Miscellaneous (Stat Iv) 1 each N/A NOW [facility] Stop: 06/23/22 09:59 Last Admin: 06/23/22 10:16 Dose: Not Given Documented By: YAMILEX Ondansetron HCl (Ondansetron Inj 2 Mg/Ml 2 Ml Vial) 4 mg IV NOW ONE Stop: 06/25/22 05:05 Last Admin: 06/25/22 05:17 Dose: 4 mg Documented By: LISA Ondansetron HCl (Ondansetron Inj 2 Mg/Ml 2 Ml Vial) Confirm Administered Dose 4 mg .ROUTE .STK-MED ONE Stop: 06/28/22 12:56 Last Admin: 06/28/22 15:17 Dose: Not Given Documented By: ELVIA Pantoprazole Sodium (Pantoprazole 40 Mg Tab) [facility] Stop: 07/26/22 08:59 Last Admin: 06/29/22 08:40 Dose: 40 mg Documented By: Admin: 06/28/22 09:41 Dose: 40 mg Documented By: Admin: 06/27/22 10:59 Dose: 40 mg Documented By: Admin: 06/26/22 09:05 Dose: 40 mg Documented By: [id number] Polyethylene Glycol (Polyethylene (Miralax) 17 Gm Pack) 17 gm PO BID [facility] Stop: 07/27/22 11:59 Last Admin: 06/29/22 08:43 Dose: Not Given Documented By: Admin: 06/28/22 20:38 Dose: Not Given Documented By: Admin: 06/28/22 11:03 Dose: Not Given Documented By: Admin: 06/27/22 21:35 Dose: 17 gm Documented By: Admin: 06/27/22 12:34 Dose: Not Given Documented By: ELVIA Polyethylene Glycol/Electrolytes (Lavage Solution 4000ml) 16 dose PO TODAY@1700 KEN Stop: 06/27/22 20:00 Last Admin: 06/27/22 17:50 Dose: 16 dose Documented By: ELVIA Potassium Chloride (Potassium Chloride Crtab 20 Meq Tabcr) 20 meq PO NOW STA Stop: 06/28/22 09:33 Last Admin: 06/28/22 09:46 Dose: 20 meq Documented By: ELVIA Propofol (Propofol Iv Emulsion 10 Mg/Ml 20 Ml Vial) Confirm Administered Dose 200 mg IV .STK-MED ONE Stop: 06/28/22 12:56 Last Admin: 06/28/22 15:17 Dose: Not Given Documented By: ELVIA Sodium Chloride (Sodium Chloride 0.9% 10ml Flush) 20 ml IV NOW STA Stop: 06/23/22 09:59 Last Admin: 06/23/22 10:16 Dose: 20 ml Documented By: YAMILEX Umeclidinium/Vilanterol (Umeclidinium/Vilanterol 62.5/25mcg 7 Puffs/Inhaler) 1 puffs INH DAILY KEN; Protocol Stop: 07/24/22 08:59 Last Admin: 06/29/22 08:43 Dose: 1 puffs Documented By: Admin: 06/28/22 09:41 Dose: 1 puffs Documented By: Admin: 06/27/22 10:59 Dose: 1 puffs Documented By: Admin: 06/26/22 09:06 Dose: 1 puffs Documented By: [id number] Admin: 06/25/22 10:51 Dose: 1 puffs Documented By: Admin: 06/24/22 09:51 Dose: 1 puffs Documented By: CURT Valsartan (Valsartan 80 Mg Tab) 40 mg PO QAM KEN Stop: 07/28/22 08:59 Last Admin: 06/29/22 09:48 Dose: 40 mg Documented By: Admin: 06/28/22 09:40 Dose: 40 mg Documented By: ELVIA Imaging Data Radiologist's Impression: Head CT 06/23/22 08:[address] DOSE: HISTORY: Dizziness. Stroke Like Symptoms TECHNIQUE: Multiaxial CT images of the head were performed without the use of intravenous contrast. Automated exposure control was utilized for this study. A dose lowering technique was utilized adhering to the principles of ALARA. Comparison: None. Findings: The paranasal sinuses and mastoid air cells are clear. The calvarium and skull base are intact. There is no mass, hematoma, midline shift, acute infarct. White matter hypodensity is nonspecific but suggestive of microvascular ischemic change. The ventricles and sulci demonstrate mild age-related involutional changes. Old punctate lacunar infarct within the bilateral thalami are noted. Impression: 1. No acute intracranial abnormality. 2. 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 ACT 112: Negative or not required by law. Electronically signed by: Jorge Berkowitz M.D. 06/23/2022 9:22 AM Head CTA 06/23/22 08:51 HEAD & NECK CTA HISTORY: Dizziness. Stroke Like Symptoms TECHNIQUE: Multiaxial CT images of the head were performed following the intravenous administration of contrast to evaluate the major cerebral vessels. Multiaxial CT images of the neck were also performed following the intravenous administration of contrast to evaluate the major cervical vessels. Maximum intensity projection images were also obtained. A dose lowering technique was utilized adhering to the principles of ALARA. COMPARISON: None. FINDINGS: There is no mass, hematoma, midline shift, or acute infarct. Visualized intrac ranial internal carotid arteries, distal vertebral arteries, and basilar artery are widely patent. There is no significant stenosis, occlusion, or aneurysm seen within the bilateral ACAs, MCAs, or philosophy instructor. There is 1.9 cm left parotid gland nodule. Mild calcified plaque within the bilateral carotid siphons. The major dural venous sinuses are patent. The aortic arch and proximal great vessels are widely patent. There is no significant stenosis, occlusion, or dissection identified within the bilateral common carotid, internal carotid, or vertebral arteries. Emphysema and chronic interstitial thickening noted at the lung apices. There is a 1.6 cm nodule within or adjacent to the inferior aspect of the right parotid gland. There is mild mediastinal and mild bilateral supraclavicular lymphadenopathy. Dominant mediastinal lymph node measures 1.9 x 1.5 cm. Mild asymmetric nodular thickening within the right apical pleural best seen on image 106 which measures 1.3 cm in thickness. Questionable subtle erosive changes at the right posterior second rib. IMPRESSION: 1. No significant stenosis, occlusion, or aneurysm within the [place]. 2. No significant stenosis, occlusion, or dissection identified within the carotid or vertebral arteries. 3. Mild mediastinal and bilateral supraclavicular lymphadenopathy. There are also bilateral parotid gland nodules/lymph nodes as described above. Findings are concerning for a neoplastic process such as lymphoma 4. There is also mild asymmetric nodular thickening within the right lung apex with questionable subtle erosive changes within the right posterior second rib. This could also be due to an underlying neoplastic process. Therefore, follow-up nonemergent oncology consultation and PET CT is recommended for further evaluation of these findings. ACT 112: Positive. There are findings on this exam that require communication between the performing entity and the patient following Patient Test Result Information Act ([place] Act 112) guidelines. Electronically signed by: Jorge Berkowitz M.D. 06/23/2022 9:33 AM Blood Pressure Blood Pressure Findings: Normal blood pressure Blood Pressure Disposition: did not require urgent referral Discharge Plan Visit Data Chief Complaint: Stroke Alert Stated Complaint: SOB, STROKE SX ED Provider: Lalita Izaguirre Discharge Problem: Acute CVA (cerebrovascular accident), COPD (chronic obstructive pulmonary disease), Thrombolytic therapy administered within 2 hours of onset of symptoms Patient Disposition: Admitted As Inpatient Discharge Instructions Interventions: ED Discharge Assessment Last Done: 06/23/22 11:38
[2022-06-23 09:05] LABS: Basophils # (auto) 0.04 K/uL (0-0.2); Basophils % (auto) 0.7 %; Eosinophils # (auto) 0.15 K/uL (0-0.50); Eosinophils % (auto) 2.4 %; Hematocrit (blood only) 36.2 % (40.1-51.0); Hemoglobin 11.5 g/dl (14.0-18.0); Immature Granulocytes # (auto) 0.02 K/uL (0.00-0.02); Immature Granulocytes % (auto) 0.3 %; Lymphocytes % (auto) 26.1 %; Mean Corpuscular Hemoglobin 26.4 pg (25.0-34.0); Mean Corpuscular Hgb Conc 31.8 g/dL (32.0-36.0); Mean Platelet Volume 9.2 fL (9.4-12.4); Monocytes # (auto) 0.69 K/uL (0.24-0.82); Monocytes % (auto) 11.2 %; Neutrophils # (auto) 3.64 K/uL (1.4-6.5); Neutrophils % (auto) 59.3 %; Platelet Count 324 K/uL (130-400); RDW Coefficient of Variation 17.3 % (11.5-14.5); RDW Standard Deviation 52.8 fL (36.4-46.3); Red Blood Count 4.36 M/uL (4.63-6.08); White Blood Count 6.14 K/ul (4.8-10.8)
[2022-06-23] MEDS ORDERED: OPTIRAY 320 125ml IV ONE (09:05)
--- NOTE | 2022-06-23 09:25 | CT Scan Report ---
HEAD CT NONCONTRAST CT DOSE: HISTORY: Dizziness. Stroke Like Symptoms TECHNIQUE: Multiaxial CT images of the head were performed without the use of intravenous contrast. A utomated exposure control was utilized for this study. A dose lowering technique was utilized adheri ng to the principles of ALARA. Comparison: None. Findings: The paranasal sinuses and mastoid air cells are clear. The calvarium and skull base are int act. There is no mass, hematoma, midline shift, acute infarct. White matter hypodensity is nonspecifi c but suggestive of microvascular ischemic change. The ventricles and sulci demonstrate mild age-rela crystal involutional changes. Old punctate lacunar infarct within the bilateral thalami are noted. Impression: 1. No acute intracranial abnormality. 2. 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 ACT 112: Negative or not required by law. Electronically signed by: Jorge Berkowitz M.D. 06/23/2022 9:22 AM
[2022-06-23 09:27] LABS: INR 1.1 (0.9-1.1); Partial Thromboplastin Ratio 0.9; Partial Thromboplastin Time 25.7 Seconds (21.0-31.0); Prothrombin Time 11.7 Seconds (9.0-12.0)
[2022-06-23 09:28] LABS: Albumin Globulin Ratio 1.1 (0.9-2); Albumin Level 3.3 gm/dl (3.4-5.0); BUN Creatinine Ratio 21.8 (10-20); Bilirubin,Total 0.6 mg/dl (0.2-1.0); Calcium 8.6 mg/dl (8.5-10.1); Creatinine Clr Calc Pharmacy 64.4 ml/min; Est GFR (African American) 100.9 ml/min; Est GFR (Non-African American) 87.1 ml/min; Globulin 3.1 gm/dl (2.5-4.0); Magnesium 1.8 mg/dl (1.7-2.4); Potassium 3.8 mmol/L (3.5-5.1); Total Protein 6.4 gm/dl (6.0-8.3)
[2022-06-23 09:34] LABS: Troponin I High Sensitivity 23.2 pg/ml (0-20)
[2022-06-23] MEDS: SODIUM CHLORIDE 0.9% 1000ML 1,000 ML IV SCH (09:36)
--- NOTE | 2022-06-23 09:36 | CT Scan Report ---
HEAD & NECK CTA HISTORY: Dizziness. Stroke Like Symptoms TECHNIQUE: Multiaxial CT images of the head were performed following the intravenous administration o f contrast to evaluate the major cerebral vessels. Multiaxial CT images of the neck were also perform ed following the intravenous administration of contrast to evaluate the major cervical vessels. Maxim um intensity projection images were also obtained. A dose lowering technique was utilized adhering to the principles of ALARA. COMPARISON: None. FINDINGS: There is no mass, hematoma, midline shift, or acute infarct. Visualized intracranial internal carotid arteries, distal vertebral arteries, and basilar artery are widely patent. There is no significant s tenosis, occlusion, or aneurysm seen within the bilateral ACAs, MCAs, or collections technician. There is 1.9 cm left p arotid gland nodule. Mild calcified plaque within the bilateral carotid siphons. The major dural veno us sinuses are patent. The aortic arch and proximal great vessels are widely patent. There is no significant stenosis, occ lusion, or dissection identified within the bilateral common carotid, internal carotid, or vertebral arteries. Emphysema and chronic interstitial thickening noted at the lung apices. There is a 1.6 cm n odule within or adjacent to the inferior aspect of the right parotid gland. There is mild mediastinal and mild bilateral supraclavicular lymphadenopathy. Dominant mediastinal lymph node measures 1.9 x 1 .5 cm. Mild asymmetric nodular thickening within the right apical pleural best seen on image 106 whic h measures 1.3 cm in thickness. Questionable subtle erosive changes at the right posterior second rib . IMPRESSION: 1. No significant stenosis, occlusion, or aneurysm within the [place]. 2. No significant stenosis, occlusion, or dissection identified within the carotid or vertebral arter ies. 3. Mild mediastinal and bilateral supraclavicular lymphadenopathy. There are also bilateral parotid g land nodules/lymph nodes as described above. Findings are concerning for a neoplastic process such as lymphoma 4. There is also mild asymmetric nodular thickening within the right lung apex with questionable subt le erosive changes within the right posterior second rib. This could also be due to an underlying jennifer plastic process. Therefore, follow-up nonemergent oncology consultation and PET CT is recommended for further evaluation of these findings. ACT 112: Positive. There are findings on this exam that require communication between the performing entity and the patient following Patient Test Result Information Act ([place] Act 112) guidelines. Electronically signed by: Jorge Berkowitz M.D. 06/23/2022 9:33 AM
[2022-06-23] MEDS ORDERED: STAT IV STA (09:58)
[2022-06-23] MEDS ORDERED: PHARMACIST DISCHARGE MED REC CONSULT PRN ×2 (09:58→11:52)
[2022-06-23] MEDS ORDERED: SODIUM CHLORIDE 0.9% 10ML FLUSH IV STA (09:58)
[2022-06-23] MEDS ORDERED: No Aspirin within 24hrs of THROMBOLYTIC-Stroke PO SCH (10:00)
[2022-06-23] MEDS ORDERED: TENECTEPLASE 14 MG in SYRINGE 0 ML IV ONE (10:09)
--- NOTE | 2022-06-23 10:16 | History & Physical Report ---
Date of Service June 23, 2022 Assessment & Plan (1) Thrombolytic medication administered within last 5 days: Plan: Eleno Cotto is a 77-year-old male with a past medical history of GERD, elevated PSA, prediabetes, hypertension, hyperlipidemia abdominal aortic aneurysm, COPD, PVCs, and pacemaker placement who presented to the emergency department for shortness of breath beginning day of admission. Did have a history of COPD and was given DuoNeb treatments and steroids. While under observation he developed right arm ataxia and aphasia not present at baseline, patient did not have a history of A. fib/CVA. Patient was ordered TNKase in ER Right upper extremity weakness, expressive aphasia suspicious for left MCA territory CVA No hemianopia Symptom onset [id number] with right upper extremity weakness, ataxia, and expressive aphasia. No lower extremity symptoms TNKase initiated at 1013 with subsequent improvement but not resolution of symptoms History of bigeminy, no history of A. fib. On aspirin with history of CAD and PCI, no anticoagulation. ICD in place for high PVC/bigeminy burden failed ablation - CTA head:1. No significant stenosis, occlusion, or aneurysm within the [place].2. No significant stenosis, occlusion, or dissection identified within the carotid or vertebral arteries.3. Mild mediastinal and bilateral supraclavicular lymphadenopathy. There are also bilateral parotid gland nodules/lymph nodes as described above. Findings are concerning for a neoplastic process such as lymphoma 4. There is also mild asymmetric nodular thickening within the right lung apex with questionable subtle erosive changes within the right posterior second rib. This could also be due to an underlying neoplastic process. Therefore, follow-up nonemergent oncology consultation and PET CT is recommended for further evaluation of these findings. - CT-H:1. No acute intracranial abnormality.2. 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 - CT neck: pending - MRI pending, ?ICD compatibility. - CT-H [address] ordered No leukocytosis Hemoglobin 11.5 Sodium normal, potassium normal Creatinine with normal baseline, 0.78 on admission High-sensitivity troponin 23.2, repeat pending COVID-negative EKG: LAD, sinus rhythm, QTC 475. Intermittent PVCs/bigeminy similar to prior Continue neurochecks, speech consulted, n.p.o. on admission, glycemic control/hypertension control per TNKase protocol. Currently normotensive at bedside evaluation COPD Convert Trelegy to formulary equivalent DuoNebs every 4 hours as needed Pending chest x-ray and cardiac eval as noted, if consistent with COPD exacerbation and not cardiogenic symptoms may add Romycin 5-day course SPO2 as needed, goal oxygen greater than 89% Incentive perimetry, flutter valve CAD with history of PCI Metoprolol temporarily held for normotension and to avoid watershed in the setting of acute stroke If increasing blood pressure may resume, if n.p.o. can convert to tartrate every 4 hours low-dose to prevent beta-amaya withdrawal Aspirin held for 24 hours following TN K Troponin mildly elevated high-sensitivity on admission 23.2, 2-hour repeat pending, trended overnight EKG as noted Patient has had no chest pain, chest pressure either with his initial shortness of breath or throughout stroke evaluation Continue atorvastatin Right lung apex changes,? Bony erosion on CT concerning for malignancy -CT: There is also mild asymmetric nodular thickening within the right lung apex with questionable subtle erosive changes within the right posterior second rib. This could also be due to an underlying neoplastic process. - -Recommend oncology consultation and potential follow-up with PET/CT once out of initial stroke management GERD Omeprazole converted to Protonix, may use IV while n.p.o. Abdominal aortic aneurysm Status post repair with Dr. Stark in 2014, yearly follow-up. Prediabetes A1c pending BSG 124 on admission ICU hyperglycemia protocol Diet: N.p.o. pending speech eval CODE STATUS: DNR/DNI, no intubation for declining respiratory status. Surrogate decision makers would be or son whoever is first available DVT prophylaxis: SCDs, pharmacal prophylaxis contraindicated in the setting of TNKase Disposition: Admit to ICU post TNKase (2) Acute CVA (cerebrovascular accident): (3) GERD (gastroesophageal reflux disease): (4) Prediabetes: (5) Pacemaker: (6) Hyperlipidemia: (7) Benign hypertension: (8) COPD (chronic obstructive pulmonary disease): (9) AAA (abdominal aortic aneurysm) without rupture: (10) PVC (premature ventricular contraction): History of Present Illness Primary Care Provider: LAURE Desai Eleno Cotto is a 77-year-old male with a past medical history of GERD, elevated PSA, prediabetes, hypertension, hyperlipidemia abdominal aortic aneurysm, COPD, PVCs, and pacemaker placement who presented to the emergency department for shortness of breath beginning day of admission. Did have a history of COPD and was given DuoNeb treatments and steroids. While under observation he developed right arm ataxia and aphasia not present at baseline, patient did not have a history of A. fib/CVA. Patient was ordered TNKase in ER 0700 --> SoB presentation? Spectated COPD exacerbation 800am --> Nebs x2, Solumedrol 125mg by ALS, on NC oxygen feeling well 820am --> Aphasia Cardiomyopathy and pacermaker/defib for PVCs failling ablation CAD with Stent in Place AAA status postrepair with vascular Mi 2014 with yearly follow-up, last 2020 3 diabetes mellitus RUE, aphasia, ataxia, no lower extremity weakness Neuro monitor, ASA baby aspirin, waiting post TNK TNKase initiated 1013hrs Patient with clinical improvement, residual but improving expressive aphasia, some right upper extremity ataxia/finger-nose overshoot improving with 5/5 strength to shoulder flexion, elbow flexion/extension, wrist flexion/extension, director of engineering strength bilaterally on hospitalist exam. CTA head: 1. No significant stenosis, occlusion, or aneurysm within the [place]. 2. No significant stenosis, occlusion, or dissection identified within the carotid or vertebral arteries. 3. Mild mediastinal and bilateral supraclavicular lymphadenopathy. There are also bilateral parotid gland nodules/lymph nodes as described above. Findings are concerning for a neoplastic process such as lymphoma 4. There is also mild asymmetric nodular thickening within the right lung apex with questionable subtle erosive changes within the right posterior second rib. This could also be due to an underlying neoplastic process. Therefore, follow-up nonemergent oncology consultation and PET CT is recommended for further evaluation of these findings. CT-H: 1. No acute intracranial abnormality. 2. 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 CT neck: pending Allergies Allergy/AdvReac Type Severity Reaction Status Date / Time No Known Allergies Allergy Unverified 02/08/22 10:06 Home Medications Medication Instructions Recorded Confirmed Type aspirin 81 mg tablet 81 mg PO DAILY #30 tabs 07/06/19 02/08/22 History multivitamin 1 tab PO DAILY 07/06/19 02/08/22 History vit C,E,zinc,copper-zvffb7l 250 1 cap PO DAILY 07/06/19 02/08/22 History mg-lutein 5 mg-zeaxanthin 1 mg capsule (Ocuvite Adult 50 Plus) ibuprofen 600 mg tablet 1,200 mg PO QID PRN pain 02/08/22 02/08/22 History atorvastatin 40 mg tablet 40 mg PO DAILY #90 tabs 03/20/22 Rx fluticasone fur. 100 mcg-umeclid 1 inh inhalation DAILY #90 ea 03/20/22 Rx 62.5 mcg-vilant 25 mcg inhalat.powder (Trelegy Ellipta) metoprolol succinate 25 mg 25 mg PO DAILY #90 tabs 03/20/22 Rx tablet,extended release 24 hr omeprazole 20 mg capsule,delayed 20 mg PO DAILY #90 caps 03/20/22 Rx release albuterol sulfate 90 mcg/actuation See Rx Instructions inhalation QID 05/07/22 Rx aerosol inhaler PRN shortness of breath or wheezing #18 grams Past Med/Surg History Medical History Abnormal stress echo Surgical History History of AAA (abdominal aortic aneurysm) repair History of cataract surgery History of pacemaker S/P ICD (internal cardiac defibrillator) procedure Family History Father Emphysema of lung Mother Lupus Sister Diabetes Denies family history of Ovarian cancer Prostate cancer Myocardial infarction Breast cancer Colorectal cancer Social History Smoking Status: Former smoker Age Started Using Tobacco: 16; Age Quit Using Tobacco: 71; packs per day: 1; Second Hand Exposure: No; Hx Alcohol Use: Yes Hx Substance Use: No Preferred Language: [place]ijani Communication Ability: Effective Hearing Ability: Use of Hearing Aid Window Systems Administrator Required: No marital status: Current Living Situation: Spouse current occupational status: retired How many Children do You have: 2 Feels Safe at Home: Yes Childhood Exposure to Second-Hand Smoke: Yes caffeine: Yes Dental Care, Regularly: Yes Physical Activity Frequency: Daily Physical Activity Frequency Comment: Walking Seatbelt Use: always Sunscreen Use: Yes Review of Systems Review of Systems: All systems reviewed & are unremarkable except as noted in Subjective Physical Exam Physical Exam: General: A&Ox3. NAD. Cooperative. HEENT: Atraumatic, normocephalic. Pulm: Coarse bilaterally, crackles in the lower [place]ton, no wheezes appreciated at time of assessment. On nasal cannula symmetrical chest rise. No increase in work of breathing. No respiratory distress. Cardiac: Regular bigeminy, -mrg. Radial pulses intact and symmetrical. Abdominal: Nontender, nondistended, soft. BS present. Speech: Intermittent expressive aphasia without prominent dysarthria appreciated, improving from initial assessment CRANIAL NERVES: II: Pupils equal and reactive, no relative afferent pupillary defect, no VF cuts III, IV, : EOM intact, no gaze preference or deviation, no nystagmus. V: normal sensation in V1, V2, and V3 segments bilaterally VII: no asymmetry, no nasolabial fold flattening VIII: normal hearing to speech IX, X: normal palatal elevation, no uvular deviation XI: 5/5 head turn and 5/5 shoulder shrug bilaterally XII: midline tongue protrusion MOTOR: RUE: 5/5 Shoulder flexion, extension, abduction, adduction 5/5 Elbow flexion/extension, wrist flexion/extension 5/5 director of engineering strength, finger flexion/extension, interosseus LUE: 5/5 Shoulder flexion, extension, abduction, adduction 5/5 Elbow flexion/extension, wrist flexion/extension 5/5 director of engineering strength, finger flexion/extension, interosseus RLE: 5/5 to hip flexion, ankle dorsiflexion/plantarflexion LLE: 5/5 to hip flexion, ankle dorsiflexion/plantarflexion REFLEXES: 2/4 patellar DTR, 3/4 biceps DTR without asymmetry. no clonus SENSORY: Normal to touch, temp in upper and lower extremities without deficit or asymm etry No hemineglect COORD: Mild overextension of the right finger on [id number] testing proving from prior per report, [id number] intact bilaterally Results & Data Results & Data ([facility]) Vital Signs (Past 12 Hours) Vital Signs Temp Pulse Resp BP Pulse Ox O2 Del Method O2 Flow Rate 06/23/22 09:49 91 H 19 92 3 06/23/22 09:49 129/77 06/23/22 09:45 92 H 28 H 06/23/22 09:31 85 17 90 3 06/23/22 09:31 140/86 06/23/22 09:30 90 25 H 93 3 06/23/22 09:17 126/73 06/23/22 09:17 90 25 H 93 3 06/23/22 09:15 89 28 H 92 3 06/23/22 09:11 90 24 94 3 06/23/22 09:11 130/71 06/23/22 09:05 91 H 25 H 95 3 06/23/22 08:49 95 H 20 92 3 06/23/22 09:05 89 L Room Air, Nasal Cannula 0 06/23/22 08:51 36.9 C 74 18 121/81 89 L Room Air PG Care Time/CCT Total # of Minutes Spent Total Time Spent with Patient: Total time spent is greater than 50% in coordination of care (as documented) at patient's floor/unit and/or counseling patient: Coding Level of Care Code 74919 Initial Inpt Care Lvl 3 Diagnoses Thrombolytic medication administered within last 5 days Z78.9 Acute CVA (cerebrovascular accident) I63.9 GERD (gastroesophageal reflux disease) K21.9 Prediabetes R73.03 Pacemaker Z95.0 Hyperlipidemia E78.5 Benign hypertension I10 COPD (chronic obstructive pulmonary disease) J44.9 AAA (abdominal aortic aneurysm) without rupture I71.4 PVC (premature ventricular contraction) I49.3
--- NOTE | 2022-06-23 11:20 | Critical Care Consultation ---
Date of Consultation June 23, 2022 Assessment & Plan (1) Acute CVA (cerebrovascular accident): Reason Critically Ill: 77-year-old male with acute CVA status post TNKase administration PLAN: Neuro: Acute CVA -Status post TNKase at 1015 -Bleeding precautions -Repeat CTA ordered -MRI pending pacemaker clearance: Pacemaker inserted here, cardiology: Lakia -CTA completed -There is also mild asymmetric nodular thickening within the right lung apex with questionable subtle erosive changes within the right posterior second rib. This could also be due to an underlying neoplastic process. Therefore, follow-up nonemergent oncology consultation and PET CT is recommended for further evaluation of these findings. Resp: COPD -Routine nebs -Titrate oxygen as needed Pulmonary nodules -We will discuss with patient and family with regard to aggressiveness and pursuing additional work-up CV: Trend troponins -Recently received thrombolytics -Hyperlipidemia: Continue high-dose statin Fluids/Renal: Maintenance fluids: Normosol 70 mils per hour ID: Procalcitonin pending GI/Nutrition: Mild hypoalbuminemia N.p.o. until cleared by speech therapy Heme: Anemia -This appears to be a new diagnosis DVT prophylaxis: SCDs until greater than 24 hours from TNKase administration Endocrine: ICU hyperglycemia protocol Hemoglobin A1c pending Vascular access: Peripheral IVs Code Status: DNR in event of cardiac arrest, DNI in event of respiratory insufficiency -I discussed CODE STATUS with patient in conjunction with and son Disposition: ICU (2) Thrombolytic medication administered within last 5 days: (3) Pacemaker: (4) Prediabetes: (5) Hyperlipidemia: (6) COPD (chronic obstructive pulmonary disease): (7) AAA (abdominal aortic aneurysm) without rupture: Supervising Physician Co-Signing Physician Notes I have personally spent 40 minutes of critical care time in the direct management of this patient. This is a life/limb threatening event. This includes time spent evaluating patient, direct bedside care, chart review, placing orders, interpretation of diagnostic studies, discussion with consultants, patient, and/or family members regarding treatment decisions, as well as other required patient management activities. This time is exclusive of all separately billable procedures, and teaching time and separate from and in addition to any other critical care service time. History of Present Illness Reason for Consultation: Acute CVA status post TNKase Requesting Physician: Tulio Perdomo Attending Physician: Tulio Perdomo History of Present Illness History is obtained from prior records as well as the patient. Patient is a 77-year-old male with a significant past medical history for hypertension, prediabetes, hyperlipidemia, abdominal aortic aneurysm, COPD: History of tobacco abuse stopped 5 to 6 years ago, status post pacemaker placement for frequent bigeminy with frequent PVCs. Who developed acute right arm ataxia and aphasia. He was a stroke alert in the emergency department and administered TNKase. Since that time he has had significant improvement in his ataxia and aphasia. He will be admitted to the ICU following lytic administration. Allergies Allergy/AdvReac Type Severity Reaction Status Date / Time No Known Allergies Allergy Unverified 02/08/22 10:06 Home Medications Medication Instructions Recorded Confirmed Type aspirin 81 mg tablet 81 mg PO DAILY #30 tabs 07/06/19 02/08/22 History multivitamin 1 tab PO DAILY 07/06/19 02/08/22 History vit C,E,zinc,copper-pbkat3j 250 1 cap PO DAILY 07/06/19 02/08/22 History mg-lutein 5 mg-zeaxanthin 1 mg capsule (Ocuvite Adult 50 Plus) ibuprofen 600 mg tablet 1,200 mg PO QID PRN pain 02/08/22 02/08/22 History atorvastatin 40 mg tablet 40 mg PO DAILY #90 tabs 03/20/22 Rx fluticasone fur. 100 mcg-umeclid 1 inh inhalation DAILY #90 ea 03/20/22 Rx 62.5 mcg-vilant 25 mcg inhalat.powder (Trelegy Ellipta) metoprolol succinate 25 mg 25 mg PO DAILY #90 tabs 03/20/22 Rx tablet,extended release 24 hr omeprazole 20 mg capsule,delayed 20 mg PO DAILY #90 caps 03/20/22 Rx release albuterol sulfate 90 mcg/actuation See Rx Instructions inhalation QID 05/07/22 Rx aerosol inhaler PRN shortness of breath or wheezing #18 grams Patient History Medical History Abnormal stress echo Surgical History History of AAA (abdominal aortic aneurysm) repair History of cataract surgery History of pacemaker S/P ICD (internal cardiac defibrillator) procedure Family History Father Emphysema of lung Mother Lupus Sister Diabetes Denies family history of Ovarian cancer Prostate cancer Myocardial infarction Breast cancer Colorectal cancer Social History Smoking Status: Former smoker Age Started Using Tobacco: 16; Age Quit Using Tobacco: 71; packs per day: 1; Second Hand Exposure: No; Hx Alcohol Use: Yes Hx Substance Use: No Preferred Language: Sami Communication Ability: Effective Hearing Ability: Use of Hearing Aid Corporate Director Of Pharmacy Required: No marital status: Current Living Situation: Spouse current occupational status: retired How many Children do You have: 2 Feels Safe at Home: Yes Childhood Exposure to Second-Hand Smoke: Yes caffeine: Yes Dental Care, Regularly: Yes Physical Activity Frequency: Daily Physical Activity Frequency Comment: Walking Seatbelt Use: always Sunscreen Use: Yes Review of Systems Review of Systems: Mild shortness of breath. Denies ousmane chest pain, passing out. Physical Exam Physical Exam: General: Alert. nontoxic. Skin: Warm, dry, Head: Atraumatic Ears, nose, mouth and throat: airway patent Cardiovascular: Normal peripheral perfusion Respiratory: no respiratory distress Gastrointestinal: Non distended Musculoskeletal: No deformity Neuro: Mild weakness: 4+/5 of the right upper extremity, mild dysmetria of right upper extremity, mild dysarthria and subjective difficulty with word finding Results & Data Results & Data ([facility]) Vital Signs (Past 12 Hours) Vital Signs Temp Pulse Pulse Resp BP BP Pulse Ox 06/23/22 10:47 90 26 H 133/76 91 06/23/22 10:12 88 20 150/86 H 98 06/23/22 10:32 88 26 H 140/84 90 06/23/22 10:17 87 18 140/82 93 06/23/22 09:49 91 H 19 92 06/23/22 09:49 129/77 06/23/22 09:45 92 H 28 H 06/23/22 09:31 85 17 90 06/23/22 09:31 140/86 06/23/22 09:30 90 25 H 93 06/23/22 09:17 126/73 06/23/22 09:17 90 25 H 93 06/23/22 09:15 89 28 H 92 06/23/22 09:11 90 24 94 06/23/22 09:11 130/71 06/23/22 09:05 91 H 25 H 95 06/23/22 08:49 95 H 20 92 06/23/22 09:05 89 L 06/23/22 08:51 36.9 C 74 18 121/81 89 L O2 Del Method O2 Flow Rate 06/23/22 10:47 Nasal Cannula 3 06/23/22 10:12 Room Air 06/23/22 10:32 Nasal Cannula 3 06/23/22 10:17 Nasal Cannula 3 06/23/22 09:49 3 06/23/22 09:49 06/23/22 09:45 06/23/22 09:31 3 06/23/22 09:31 06/23/22 09:30 3 06/23/22 09:17 06/23/22 09:17 3 06/23/22 09:15 3 06/23/22 09:11 3 06/23/22 09:11 06/23/22 09:05 3 06/23/22 08:49 3 06/23/22 09:05 Room Air, Nasal Cannula 0 06/23/22 08:51 Room Air Critical Care Results & Data Vital Signs (Past 12 Hours) Vital Signs Temp Pulse Pulse Resp BP BP Pulse Ox 06/23/22 11:02 89 27 H 117/87 93 06/23/22 10:47 90 26 H 133/76 91 06/23/22 10:12 88 20 150/86 H 98 06/23/22 10:32 88 26 H 140/84 90 06/23/22 10:17 87 18 140/82 93 06/23/22 09:49 91 H 19 92 06/23/22 09:49 129/77 06/23/22 09:45 92 H 28 H 06/23/22 09:31 85 17 90 06/23/22 09:31 140/86 06/23/22 09:30 90 25 H 93 06/23/22 09:17 126/73 06/23/22 09:17 90 25 H 93 06/23/22 09:15 89 28 H 92 06/23/22 09:11 90 24 94 06/23/22 09:11 130/71 06/23/22 09:05 91 H 25 H 95 08/06/22 08:49 95 H 20 92 08/06/22 09:05 89 L 06/23/22 08:51 36.9 C 74 18 121/81 89 L O2 Del Method O2 Flow Rate 06/23/22 11:02 Nasal Cannula 3 06/23/22 10:47 Nasal Cannula 3 06/23/22 10:12 Room Air 06/23/22 10:32 Nasal Cannula 3 06/23/22 10:17 Nasal Cannula 3 06/23/22 09:49 3 06/23/22 09:49 06/23/22 09:45 06/23/22 09:31 3 06/23/22 09:31 06/23/22 09:30 3 06/23/22 09:17 06/23/22 09:17 3 06/23/22 09:15 3 06/23/22 09:11 3 06/23/22 09:11 06/23/22 09:05 3 06/23/22 08:49 3 06/23/22 09:05 Room Air, Nasal Cannula 0 06/23/22 08:51 Room Air Lab & Micro Results (Past 24 Hours) RBC 4.36 M/uL (4.63-6.08) L 06/23/22 WBC 6.14 K/ul (4.8-10.8) 06/23/22 Hgb 11.5 g/dl (14.0-18.0) L 06/23/22 Hct 36.2 % (40.1-51.0) L 06/23/22 MCV 83.0 fL (80.0-100.0) 06/23/22 MCH 26.4 pg (25.0-34.0) 06/23/22 MCHC 31.8 g/dL (32.0-36.0) L 06/23/22 RDW Standard Deviation 52.8 fL (36.4-46.3) H 06/23/22 RDW Coefficient of Variation 17.3 % (11.5-14.5) H 06/23/22 Plt Count 324 K/uL (130-400) 06/23/22 MPV 9.2 fL (9.4-12.4) L 06/23/22 Neutrophils (%) (Auto) 59.3 % 06/23/22 Lymphocytes (%) (Auto) 26.1 % 06/23/22 Monocytes # (Auto) 0.69 K/uL (0.24-0.82) 06/23/22 Eosinophils # (Auto) 0.15 K/uL (0-0.50) 06/23/22 Immature Granulocyte % (Auto) 0.3 % 06/23/22 Neutrophils # (Auto) 3.64 K/uL (1.4-6.5) 06/23/22 Lymphocytes # (Auto) 1.60 K/uL (1.2-3.4) 06/23/22 Monocytes # (Auto) 0.69 K/uL (0.24-0.82) 06/23/22 Eosinophils # (Auto) 0.15 K/uL (0-0.50) 06/23/22 Basophils # (Auto) 0.04 K/uL (0-0.2) 06/23/22 Immature Granulocyte # (Auto) 0.02 K/uL (0.00-0.02) 2 Na 142 mmol/L (136-145) 06/23/22 K 3.8 mmol/L (3.5-5.1) 06/23/22 Cl 112 mmol/L (98-107) H 06/23/22 CO2 22 mmol/L (21-32) 06/23/22 Anion Gap 8 (3-11) 06/23/22 BUN 17 mg/dl (6-23) 06/23/22 Creatinine 0.78 mg/dl (0.6-1.4) 06/23/22 Estimated GFR ( Amer) 100.9 ml/min 06/23/22 Estimated GFR (Non-Af Amer) 87.1 ml/min 06/23/22 BUN/Creatinine Ratio 21.8 (10-20) H 06/23/22 Glu 124 mg/dl (70-99(Fasting)) H 06/23/22 Ca 8.6 mg/dl (8.5-10.1) 06/23/22 Total Bilirubin 0.6 mg/dl (0.2-1.0) 06/23/22 AST 17 U/L (13-39) 06/23/22 ALT 16 U/L (7-52) 06/23/22 Alkaline Phosphatase 100 U/L (34-104) 06/23/22 TP 6.4 gm/dl (6.0-8.3) 06/23/22 Albumin 3.3 gm/dl (3.4-5.0) L 06/23/22 Globulin 3.1 gm/dl (2.5-4.0) 06/23/22 Albumin/Globulin Ratio 1.1 (0.9-2) 06/23/22 Mg 1.8 mg/dl (1.7-2.4) 06/23/22 08:55 Calcium Level 8.6 mg/dl (8.5-10.1) 06/23/22 08:55 Prothromb Time International Ratio 1.1 (0.9-1.1) 06/23/22 08:5 5 Diagnostic Findings (Past 24 Hours) Head CT 06/23/22 08:[address] DOSE: HISTORY: Dizziness. Stroke Like Symptoms TECHNIQUE: Multiaxial CT images of the head were performed without the use of intravenous contrast. Automated exposure control was utilized for this study. A dose lowering technique was utilized adhering to the principles of ALARA. Comparison: None. Findings: The paranasal sinuses and mastoid air cells are clear. The calvarium and skull base are intact. There is no mass, hematoma, midline shift, acute infarct. White matter hypodensity is nonspecific but suggestive of microvascular ischemic change. The ventricles and sulci demonstrate mild age-related involutional changes. Old punctate lacunar infarct within the bilateral thalami are noted. Impression: 1. No acute intracranial abnormality. 2. 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 ACT 112: Negative or not required by law. Electronically signed by: Jorge Berkowitz M.D. 06/23/2022 9:22 AM Head CTA 06/23/22 08:51 HEAD & NECK CTA HISTORY: Dizziness. Stroke Like Symptoms TECHNIQUE: Multiaxial CT images of the head were performed following the intravenous administration of contrast to evaluate the major cerebral vessels. Multiaxial CT images of the neck were also performed following the intravenous administration of contrast to evaluate the major cervical vessels. Maximum intensity projection images were also obtained. A dose lowering technique was utilized adhering to the principles of ALARA. COMPARISON: None. FINDINGS: There is no mass, hematoma, midline shift, or acute infarct. Visualized intracranial internal carotid arteries, distal vertebral arteries, and basilar artery are widely patent. There is no significant stenosis, occlusion, or aneurysm seen within the bilateral ACAs, MCAs, or batter depositor. There is 1.9 cm left parotid gland nodule. Mild calcified plaque within the bilateral carotid siphons. The major dural venous sinuses are patent. The aortic arch and proximal great vessels are widely patent. There is no significant stenosis, occlusion, or dissection identified within the bilateral common carotid, internal carotid, or vertebral arteries. Emphysema and chronic interstitial thickening noted at the lung apices. There is a 1.6 cm nodule within or adjacent to the inferior aspect of the right parotid gland. There is mild mediastinal and mild bilateral supraclavicular lymphadenopathy. Dominant mediastinal lymph node measures 1.9 x 1.5 cm. Mild asymmetric nodular thickening within the right apical pleural best seen on image 106 which measures 1.3 cm in thickness. Questionable subtle erosive changes at the right posterior second rib. IMPRESSION: 1. No significant stenosis, occlusion, or aneurysm within the [place]. 2. No significant stenosis, occlusion, or dissection identified within the carotid or vertebral arteries. 3. Mild mediastinal and bilateral supraclavicular lymphadenopathy. There are also bilateral parotid gland nodules/lymph nodes as described above. Findings are concerning for a neoplastic process such as lymphoma 4. There is also mild asymmetric nodular thickening within the right lung apex with questionable subtle erosive changes within the right posterior second rib. This could also be due to an underlying neoplastic process. Therefore, follow-up nonemergent oncology consultation and PET CT is recommended for further evaluation of these findings. ACT 112: Positive. There are findings on this exam that require communication between the performing entity and the patient following Patient Test Result Information Act ([place] Act 112) guidelines. Electronically signed by: Jorge Berkowitz M.D. 06/23/2022 9:33 AM RT Ventilator Mngmt (Last Documented) Ventilator Ordered Settings Respiratory Rate 27 06/23/22 11:02 Ventilator - PT Measurements Respiratory Rate 27 Coding Level of Care Code Critical Care 1st 30-74 mins Diagnoses Acute CVA (cerebrovascular accident) I63.9 Thrombolytic medication administered within last 5 days Z78.9 Pacemaker Z95.0 Prediabetes R73.03 Hyperlipidemia E78.5 COPD (chronic obstructive pulmonary disease) J44.9 AAA (abdominal aortic aneurysm) without rupture I71.4
--- NOTE | 2022-06-23 11:24 | Electrocardiogram Report ---
Test Reason : Blood Pressure : / mmHG Vent. Rate : 094 BPM Atrial Rate : 094 BPM P-R Int : 178 ms QRS Dur : 078 ms QT Int : 380 ms P-R-T Axes : 062 -37 073 degrees QTc Int : 475 ms Poor data quality, interpretation may be adversely affected Sinus rhythm with frequent Premature ventricular complexes in a pattern of bigeminy Left atrial enlargement Left axis deviation Old Inferior infarct Abnormal ECG When compared with ECG of 21-MAR-2017 13:44, Sinus rhythm has replaced Electronic atrial pacemaker Criteria for Inferior infarct is now Present Confirmed by Tito Broderick ([id number]) on 06/23/2022 11:24:20 AM Referred By: Confirmed By:Tito Broderick
[2022-06-23] MEDS ORDERED: ICU PROTOCOL FOR HYPERGLYCEMIA PRN (11:52)
[2022-06-23] MEDS ORDERED: PANTOprazole 40 MG in SYRINGE 0 ML IV ONE (12:00)
[2022-06-23] MEDS: NORMOSOL-R 1,000 ML IV SCH (12:37)
--- NOTE | 2022-06-23 15:44 | CT Scan Report ---
HEAD & NECK CTA HISTORY: Dizziness. Stroke Like Symptoms TECHNIQUE: Multiaxial CT images of the head were performed following the intravenous administration o f contrast to evaluate the major cerebral vessels. Multiaxial CT images of the neck were also perform ed following the intravenous administration of contrast to evaluate the major cervical vessels. Maxim um intensity projection images were also obtained. A dose lowering technique was utilized adhering to the principles of ALARA. COMPARISON: None. FINDINGS: There is no mass, hematoma, midline shift, or acute infarct. Visualized intracranial internal carotid arteries, distal vertebral arteries, and basilar artery are widely patent. There is no significant s tenosis, occlusion, or aneurysm seen within the bilateral ACAs, MCAs, or gospel singer. There is 1.9 cm left p arotid gland nodule. Mild calcified plaque within the bilateral carotid siphons. The major dural veno us sinuses are patent. The aortic arch and proximal great vessels are widely patent. There is no significant stenosis, occ lusion, or dissection identified within the bilateral common carotid, internal carotid, or vertebral arteries. Emphysema and chronic interstitial thickening noted at the lung apices. There is a 1.6 cm n odule within or adjacent to the inferior aspect of the right parotid gland. There is mild mediastinal and mild bilateral supraclavicular lymphadenopathy. Dominant mediastinal lymph node measures 1.9 x 1 .5 cm. Mild asymmetric nodular thickening within the right apical pleural best seen on image 106 whic h measures 1.3 cm in thickness. Questionable subtle erosive changes at the right posterior second rib . IMPRESSION: 1. No significant stenosis, occlusion, or aneurysm within the [place]. 2. No significant stenosis, occlusion, or dissection identified within the carotid or vertebral arter ies. 3. Mild mediastinal and bilateral supraclavicular lymphadenopathy. There are also bilateral parotid g land nodules/lymph nodes as described above. Findings are concerning for a neoplastic process such as lymphoma 4. There is also mild asymmetric nodular thickening within the right lung apex with questionable subt le erosive changes within the right posterior second rib. This could also be due to an underlying jennifer plastic process. Therefore, follow-up nonemergent oncology consultation and PET CT is recommended for further evaluation of these findings. ACT 112: Positive. There are findings on this exam that require communication between the performing entity and the patient following Patient Test Result Information Act ([place] Act 112) guidelines. Electronically signed by: Jorge Berkowitz M.D. 06/23/2022 3:43 PM
--- NOTE | 2022-06-23 20:37 | Neurology Consultation ---
Date of Consultation June 23, 2022 Assessment & Plan (1) Acute CVA (cerebrovascular accident): Plan Probable acute stroke localizing to the left cerebral hemisphere, characterized by right upper extremity weakness, mild expressive speech difficulty/dysarthria. I note this patient is left-handed and likely has bilateral hemispheric representation of language. He received TNKase during his assessment in the emergency department and his neurologic symptoms have significantly improved. He does not have an obvious hemiparesis at this point in time although he continues to have mild speech hesitancy, no difficulty with language comprehension. Stroke risk factors for this patient include hypertension, hyperlipidemia, prediabetes. No known history of atrial fibrillation although does have an ICD in place given his cardiac history. His CT angiography appears to suggest possible underlying malignancy as well. This potential issue will need to be evaluated further going forward. Patient will have a repeat CT of the head completed tomorrow morning to exclude hemorrhagic conversion. Would like a brain MRI completed as well if his ICD is MRI compatible. Aspirin can be restarted 24 hours after administration of TNKase. His blood pressure is currently well controlled. Patient should continue with atorvastatin. Consider checking an up-to-date lipid panel. He will need consultations with PT/OT/speech therapy. I will make further recommendations as necessary, depending on results of his follow-up CT of the head, and brain MRI (if this test can be done.) History of Present Illness Reason for Consultation: stroke Requesting Physician: Tulio Perdomo MD Attending Physician: Tulio Perdomo MD History of Present Illness The patient is a 77-year-old left handed male who presented to the emergency department this morning with a chief complaint of slurred speech and right upper extremity weakness. Symptoms occurred acutely at around 8:20 AM in the context of treatment for shortness of breath by ALS. He was administered TNKase in the emergency department and reports significant improvement in his symptoms. However, he continues to report mild difficulty with word finding. He denies significant weakness for the right arm at this point in time. No associated weakness of the leg. No headache or vision change. Past medical history notable for prediabetes, hypertension, hyperlipidemia, coronary artery disease, stenting in 2014, abdominal aortic aneurysm, dual-chamber Med[employer] defibrillator, combined ischemic and nonischemic cardiomyopathy, moderate aortic stenosis, follows with Dr. Spears, [place] [facility]. He was taking daily low- dose aspirin and atorvastatin as an outpatient. His antiplatelet medication is currently on hold after receiving thrombolytics. CT angiography of the head and neck was negative for any significant vascular lesion. I note there were some changes at the right lung apex and possible erosive changes within the right posterior second rib worrisome for underlying neoplasm. A follow-up CT of the head has been ordered for tomorrow morning. A brain MRI has been ordered as well, depending on patient's defibrillator compatibility. His blood pressure has been fairly normal. Allergies Allergy/AdvReac Type Severity Reaction Status Date / Time No Known Allergies Allergy Unverified 02/08/22 10:06 Home Medications Medication Instructions Recorded Confirmed Type aspirin 81 mg tablet 81 mg PO DAILY #30 tabs 07/06/19 02/08/22 History multivitamin 1 tab PO DAILY 07/06/19 02/08/22 History vit C,E,zinc,copper-ytnle8b 250 1 cap PO DAILY 07/06/19 02/08/22 History mg-lutein 5 mg-zeaxanthin 1 mg capsule (Ocuvite Adult 50 Plus) ibuprofen 600 mg tablet 1,200 mg PO QID PRN pain 02/08/22 02/08/22 History atorvastatin 40 mg tablet 40 mg PO DAILY #90 tabs 03/20/22 Rx fluticasone fur. 100 mcg-umeclid 1 inh inhalation DAILY #90 ea 03/20/22 Rx 62.5 mcg-vilant 25 mcg inhalat.powder (Trelegy Ellipta) metoprolol succinate 25 mg 25 mg PO DAILY #90 tabs 03/20/22 Rx tablet,extended release 24 hr omeprazole 20 mg capsule,delayed 20 mg PO DAILY #90 caps 03/20/22 Rx release albuterol sulfate 90 mcg/actuation See Rx Instructions inhalation QID 05/07/22 Rx aerosol inhaler PRN shortness of breath or wheezing #18 grams Patient History Medical History Abnormal stress echo Surgical History History of AAA (abdominal aortic aneurysm) repair History of cataract surgery History of pacemaker S/P ICD (internal cardiac defibrillator) procedure Family History Father Emphysema of lung Mother Lupus Sister Diabetes Denies family history of Ovarian cancer Prostate cancer Myocardial infarction Breast cancer Colorectal cancer Social History Smoking Status: Former smoker Age Started Using Tobacco: 16; Age Quit Using Tobacco: 71; packs per day: 1; Second Hand Exposure: No; Hx Alcohol Use: Yes Alcohol type: beer Hx Substance Use: No Preferred Language: Telugu Communication Ability: Impaired Hearing Ability: Use of Hearing Aid Gem Setter Required: No Beliefs That Will Affect Care: None marital status: Current Living Situation: Spouse and Family current occupational status: retired How many Children do You have: 2 Feels Safe at Home: Yes Childhood Exposure to Second-Hand Smoke: Yes caffeine: Yes Dental Care, Regularly: Yes Physical Activity Frequency: Daily Physical Activity Frequency Comment: Walking Seatbelt Use: always Sunscreen Use: Yes Assistive Devices: Denture - Upper, Denture - Lower, Glasses and Hearing Aid - Bilateral Review of Systems Constitutional: no fever and no chills Eyes: + worsening vision; no diplopia History of macular degeneration Ear, Nose, Mouth, Throat: no hearing loss Respiratory: as per Subjective / HPI and + dyspnea; no cough Cardiovascular: no chest pain and no palpitations Gastrointestinal: no abdominal pain Genitourinary: no dysuria Musculoskeletal: no neck pain and no myalgia Integumentary: no rash Neurologic: as per Subjective / HPI Psychiatric: no depression and no anxiety Hematologic / Lymphatic: no easy bleeding Exam (Neuro) Constitutional: well developed and well nourished; no acute distress Eyes: normal visual [place] by confrontation, PERRL, normal accommodation and EOM intact bilaterally; no fundoscopic abnormality, no nystagmus and no papilledema Cardiovascular: Vessels: normal carotid upstroke; no carotid bruit Neurologic: Oriented to:: Person, Place and Time Memory: Short Term Intact and Remote Intact Attention: Span Intact and Concentration Intact Language: Naming Objects and Repeating Phrases Speech Fluency: Dysarthria (mild) Speech Aphasia: Aphasia (mild expressive type) Fund of Knowledge: Current Events, Past History and Vocabulary Cranial Nerves: Normal II (Visual [place] full to confrontation, visual acuity normal), III, IV, (Pupils equal round reactive to light and accommodation, eye movements normal), V (Facial sensation intact), VII (There is no facial droop or weakness), VIII (Hearing intact), IX, X (Palate elevates to midline), XI (Shoulder shrug intact) and XII (Tongue protrudes to midline) Motor Strength: Normal Lower Extremities and Normal Upper Extremities; negative Pronator Drift Motor Tone: Normal Lower Extremities and Normal Upper Extremities Muscle Bulk/Involuntary Movements: No Involuntary Movements; negative Muscle Atrophy Sensation: Light Touch Intact, Pain/Temperature Intact, Vibration Intact and Proprioception Intact Coordination: Normal; negative Limited Balance, Dysdiadochokinesia, Finger-Nose Abnormal or Heel-Gupta Abnormal Deep Tendon Reflexes: Rt Triceps: 2+, Lt Triceps: 2+, Rt Biceps: 2+, Lt Biceps: 2+, Rt Brachioradialis: 2+, Lt Brachioradialis: 2+, Rt Patellar: 2+, Lt Patellar: 2+, Rt Ankle: 2+ and Lt Ankle: 2+ Special Tests: Babinski Present (right) Details: Gait not tested in the context of patient's current neurological status. Results & Data ([facility]) Vital Signs (Past 12 Hours) Vital Signs Temp Pulse Pulse Resp BP BP BP 06/23/22 19:17 37 C 87 18 136/78 06/23/22 18:17 37 C 30 H 124/89 06/23/22 17:47 37.0 C 80 23 118/64 06/23/22 17:17 37 C 81 25 H 127/79 06/23/22 16:47 37.0 C 77 25 H 128/81 06/23/22 16:17 37.0 C 76 22 138/73 06/23/22 15:47 36.4 C L 79 29 H 124/68 06/23/22 15:17 36.4 C L 85 21 141/92 H 06/23/22 14:47 36.4 C L 83 27 H 137/72 06/23/22 14:17 36.4 C L 31 H 133/82 06/23/22 11:52 78 06/23/22 13:47 36.4 C L 88 31 H 138/74 06/23/22 13:17 36.4 C L 24 129/81 06/23/22 12:47 36.4 C L 85 36 H 148/85 H 06/23/22 12:17 36.4 C L 81 31 H 134/73 06/23/22 12:02 36.4 C L 84 28 H 132/89 06/23/22 11:47 36.4 C L 80 26 H 136/85 06/23/22 11:38 36.4 C L 105 H 21 86/54 L 06/23/22 11:53 06/23/22 11:53 36.4 C L 105 H 18 86/54 L 06/23/22 11:38 06/23/22 11:02 89 27 H 117/87 06/23/22 10:47 90 26 H 133/76 06/23/22 10:12 88 20 150/86 H 06/23/22 10:32 88 26 H 140/84 06/23/22 10:17 87 18 140/82 06/23/22 09:49 91 H 19 06/23/22 09:49 129/77 06/23/22 09:45 92 H 28 H 06/23/22 09:31 85 17 06/23/22 09:31 140/86 06/23/22 09:30 90 25 H 06/23/22 09:17 126/73 06/23/22 09:17 90 25 H 06/23/22 09:15 89 28 H 06/23/22 09:11 90 24 06/23/22 09:11 130/71 06/23/22 09:05 91 H 25 H 06/23/22 08:49 95 H 20 06/23/22 09:05 06/23/22 08:51 36.9 C 74 18 121/81 Pulse Ox O2 Del Method O2 Flow Rate 06/23/22 19:17 89 L Nasal Cannula 3 06/23/22 18:17 95 Nasal Cannula 3 06/23/22 17:47 90 Nasal Cannula 3 06/23/22 17:17 94 Nasal Cannula 3 06/23/22 16:47 94 Nasal Cannula 3 06/23/22 16:17 90 Nasal Cannula 3 06/23/22 15:47 95 Nasal Cannula 3 06/23/22 15:17 91 Nasal Cannula 3 06/23/22 14:47 95 Nasal Cannula 3 06/23/22 14:17 94 Nasal Cannula 3 06/23/22 11:52 06/23/22 13:47 94 Nasal Cannula 3 06/23/22 13:17 93 Nasal Cannula 3 06/23/22 12:47 95 Nasal Cannula 3 06/23/22 12:17 92 Nasal Cannula 3 06/23/22 12:02 93 Nasal Cannula 3 06/23/22 11:47 93 Nasal Cannula 06/23/22 11:38 91 Nasal Cannula 3 06/23/22 11:53 Nasal Cannula 3 06/23/22 11:53 91 Nasal Cannula 3 06/23/22 11:38 Room Air 3 06/23/22 11:02 93 Nasal Cannula 3 06/23/22 10:47 91 Nasal Cannula 3 06/23/22 10:12 98 Room Air 06/23/22 10:32 90 Nasal Cannula 3 06/23/22 10:17 93 Nasal Cannula 3 06/23/22 09:49 92 3 06/23/22 09:49 06/23/22 09:45 06/23/22 09:31 90 3 06/23/22 09:31 06/23/22 09:30 93 3 06/23/22 09:17 06/23/22 09:17 93 3 06/23/22 09:15 92 3 06/23/22 09:11 94 3 06/23/22 09:11 06/23/22 09:05 95 3 06/23/22 08:49 92 3 06/23/22 09:05 89 L Room Air, Nasal Cannula 0 06/23/22 08:51 89 L Room Air Laboratory Results WBC 6.14, hemoglobin 11.5, hematocrit 36.2, MCV 83.0, platelet count 324, sodium 142, potassium 3.8, BUN 17, creatinine 0.78, glucose 124, calcium 8.6, magnesium 1.8, AST 17, ALT 16. Lipid panel from July 2021 reviewed. Triglycerides 78, cholesterol 94, LDL 41, VLDL 16, HDL 37. Diagnostic Findings CT of the head completed earlier today negative for hemorrhage or acute process. There were old punctate bilateral thalamic lacunar infarcts. CT angiography of the head and neck negative for significant vascular lesion. There was mild mediastinal and bilateral supraclavicular lymphadenopathy as well as bilateral parotid gland nodules/lymph nodes. Mild asymmetric nodular thickening within the right lung apex with questionable subtle erosive changes within the right posterior second rib. Findings potentially consistent with an underlying n eoplastic process. I independently reviewed the images and agree with the radiologist's interpretation as above. An electrocardiogram completed today revealed a sinus rhythm with frequent premature ventricular complexes in a pattern of bigeminy. Coding Level of Care Code 16472 Initial Inpt Care Lvl 3 Diagnoses Acute CVA (cerebrovascular accident) I63.9
[2022-06-24] MEDS: NORMOSOL-R 1,000 ML IV SCH (01:37)
--- NOTE | 2022-06-24 08:07 | Hospitalist Progress Note ---
Date of Service June 24, 2022 Assessment & Plan (1) Acute CVA (cerebrovascular accident): Plan: Probable acute stroke localizing to the left cerebral hemisphere, characterized by right upper extremity weakness, mild expressive speech difficulty/dysarthria. Symptom onset [id number] with right upper extremity weakness, ataxia, and expressive aphasia. No lower extremity symptoms TNKase initiated at 1013 with subsequent improvement but not resolution of s ymptoms History of bigeminy, no history of A. fib. On aspirin with history of CAD and PCI, no anticoagulation. ICD in place for high PVC/bigeminy burden failed ablation CT angiography of the head and neck was negative for any significant vascular lesion. Repeat CT head today to exclude hemorrhagic conversion Brain MRI if ICD is MRI compatible Aspirin can be restarted 24 hours after administration of TNKase. His blood pressure is currently well controlled. Continue neurochecks, speech consulted, n.p.o. on admission, glycemic control/hypertension control per TNKase protocol. Currently normotensive at bedside evaluation (2) Pulmonary nodule 1 cm or greater in diameter: Plan: Right lung apex changes, Bony erosion on CT concerning for malignancy -CT: There is also mild asymmetric nodular thickening within the right lung apex with questionable subtle erosive changes within the right posterior second rib. This could also be due to an underlying neoplastic process. - -Recommend oncology consultation and potential follow-up with PET/CT once out of initial stroke management (3) Hyperlipidemia: Plan: - Continue Atorvastatin - Consider checking lipid panel (4) COPD (chronic obstructive pulmonary disease): Plan: Convert Trelegy to formulary equivalent DuoNebs every 4 hours as needed Pending chest x-ray and cardiac eval as noted, if consistent with COPD exacerb ation and not cardiogenic symptoms may consider adding Romycin 5-day course SPO2 as needed, goal oxygen greater than 89%, currently on 3L Incentive perimetry, flutter valve (5) Prediabetes: Plan: A1c pending BSG 124 on admission ICU hyperglycemia protocol (6) GERD (gastroesophageal reflux disease): Plan: Omeprazole converted to Protonix, may use IV while n.p.o. (7) AAA (abdominal aortic aneurysm) without rupture: Plan: Status post repair with Dr. Stark in 2014, yearly follow-up (8) CAD (coronary artery disease): Plan: Metoprolol temporarily held for normotension and to avoid watershed in the setting of acute stroke If increasing blood pressure may resume, if n.p.o. can convert to tartrate every 4 hours low-dose to prevent beta-amaya withdrawal Aspirin held for 24 hours following TN K Troponin mildly elevated high-sensitivity on admission 23.2, 2-hour repeat pending, trended overnight EKG as noted Patient has had no chest pain, chest pressure either with his initial shortness of breath or throughout stroke evaluation Continue atorvastatin Plan Diet: N.p.o. pending speech eval CODE STATUS: DNR/DNI, no intubation for declining respiratory status. Surrogate decision makers would be or son whoever is first available DVT prophylaxis: SCDs, pharmacal prophylaxis contraindicated in the setting of TNKase Disposition: Admit to ICU post TNKase Admission and Anticipated Discharge Date Admission Date: June 23, 2022 Supervising Physician Co-Signing Physician Notes I personally examined the patient and verified all eisenberg points of history and exam, discussed case, and agree with decision making with Dr Tavarez. Feeling pretty good overall. Notes his speech is doing pretty well he is happy with how his arm is moving. He has a very mild headache but notes it is frontal only, not the worst headache of his life, and really only mentions it because he wonders if he has anything available as a as needed to help with it. Vitals noted, in general he is awake and alert pleasant no distress. HEENT normocephalic atraumatic mucous membranes moist. Breathing unlabored no acces luann muscle use good effort. Right arm with some diminished motor but moves overall fairly well. Strokestatus post thrombolysis. Doing quite well. Follow-up CT earlier today with no bleeding. He has a mild headache right nowbut nothing that appears consistent with intracranial hemorrhage. Follow closely, ongoing exams and neurochecks, Tylenol/oxycodone as needed Otherwise as above Subjective Pt was doing well this morning. He states that he feels both his speech and right arm symptoms have significantly improved. No complaints this morning. Denies headache, vision changes, LE weakness. Physical Exam Physical Exam: General: Alert. No acute distress Skin: Warm, dry, Head: Atraumatic Cardiovascular: Regular rate and rhythm, no murmurs Respiratory: lungs clear to accusation B/L, no rhonchi, rales, wheezing Gastrointestinal: Non distended Neuro: 5/5 strength in LE B/L, 4/5 strength in right UE, 5/5 strength in left upper extremity. Cranial nerves II-XII grossly intact. No notable dysarthria/dysphagia Results & Data Results & Data ([facility]) Vital Signs (Past 12 Hours) Vital Signs Temp Pulse Pulse Resp BP Pulse Ox O2 Del Method 06/24/22 07:17 36.5 C 77 24 126/71 97 Nasal Cannula 06/24/22 06:17 36.5 C 93 H 27 H 122/78 95 Nasal Cannula 06/24/22 05:17 36.5 C 74 26 H 121/66 96 Nasal Cannula 06/24/22 04:17 36.5 C 72 20 119/72 97 Nasal Cannula 06/24/22 03:17 36.5 C 86 23 117/75 93 Nasal Cannula 06/24/22 02:17 36.5 C 73 23 121/73 90 Nasal Cannula 06/24/22 00:00 73 06/24/22 01:17 36.6 C 64 24 121/82 94 Nasal Cannula 06/24/22 00:17 36.6 C 64 26 H 119/77 93 Nasal Cannula 06/23/22 23:17 36.6 C 70 24 119/75 94 Nasal Cannula 06/23/22 22:17 36.6 C 78 18 127/78 94 Nasal Cannula 06/23/22 21:17 37.0 C 75 24 120/82 95 Nasal Cannula 06/23/22 20:17 37.0 C 75 26 H 125/72 97 Nasal Cannula O2 Flow Rate 06/24/22 07:17 3 06/24/22 06:17 3 06/24/22 05:17 3 06/24/22 04:17 3 06/24/22 03:17 3 06/24/22 02:17 3 06/24/22 00:00 06/24/22 01:17 3 06/24/22 00:17 3 06/23/22 23:17 4 06/23/22 22:17 3 06/23/22 21:17 3 06/23/22 20:17 3 Resident Activity Tracking Resident Involvement: Resident Care Provided Care Provided: Adult Hospital Medicine
--- NOTE | 2022-06-24 08:41 | XCELERA ---
[id number]
[2022-06-24] MEDS ORDERED: NON-FORMULARY MEDICATION (Fluticasone-Umeclidin-Vilanter [Trelegy Ellipta] 100-62.5-25 mcg INH SCH (09:00)
[2022-06-24] MEDS: SODIUM CHLORIDE 0.9% 1000ML 1,000 ML IV SCH (09:49)
[2022-06-24] MEDS: ATORVASTATIN 40 MG TAB PO SCH (09:50)
[2022-06-24] MEDS: FLUTICASONE FUROATE 100MCG 14 PUFFS/INHALER INH SCH (09:51)
[2022-06-24] MEDS: UMECLIDINIUM/VILANTEROL 62.5/25MCG 7 PUFFS/INHALER INH SCH (09:51)
--- NOTE | 2022-06-24 10:27 | CT Scan Report ---
CT head/brain wo con CLINICAL HISTORY: 77 years-old Male with serial CT after TNK at 24hrs. Acute strokelike symptoms TECHNIQUE: Multiple axial CT images of the head were obtained without contrast. A dose lowering tech nique was utilized adhering to the principles of ALARA. CT DOSE: 537.48 mGy.cm COMPARISON: Head CT 06/23/2022 FINDINGS: No acute intracranial hemorrhage, midline shift, intracranial mass, hydrocephalus, or abnormal extra- axial collection. Chronic lacunar infarcts of the thalami. Involutional changes with white matter hyp odensities suggestive of chronic microvascular ischemic disease. Ill-defined decreased attenuation wi th blurring of the hernandez-white interface within the superior left parietal lobe on image 22 series 2 f or example. Edema may extend into the left temporal lobe. The calvarium is intact. Prior bilateral lens repair. The paranasal sinuses, mastoid air cells, and m iddle ear cavities are clear. IMPRESSION: 1. No acute intracranial hemorrhage, midline shift or hydrocephalus. 2. Ill-defined decreased attenuation within the left parietal lobe and also possibly the left tempora l lobe with blurring of the hernandez-white interface is suspicious for an acute infarct. Correlation with MRI recommended. ACT 112: Negative or not required by law. The above report was generated using voice recognition software. It may contain grammatical, syntax o r spelling errors. Electronically signed by: Eliezer Champagne M.D. 06/24/2022 10:25 AM
--- NOTE | 2022-06-24 11:00 | Critical Care Progress Note ---
Date of Service June 24, 2022 Assessment & Plan (1) Acute CVA (cerebrovascular accident): Plan: Reason Critically Ill: 77-year-old male with acute CVA status post TNKase administration PLAN: Neuro: Acute CVA -Status post TNKase at 1015 -Bleeding precautions -Repeat CTA ordered -MRI pending pacemaker clearance: Pacemaker inserted here, cardiology: Lakia -CTA completed -There is also mild asymmetric nodular thickening within the right lung apex with questionable subtle erosive changes within the right posterior second rib. This could also be due to an underlying neoplastic process. Therefore, follow-up nonemergent oncology consultation and PET CT is recommended for further evaluation of these findings. Resp: COPD -Routine nebs -Titrate oxygen as needed Pulmonary nodules -discuss with patient and family with regard to aggressiveness and pursuing additional work-up CV: Trend troponins -Recently received thrombolytics -Hyperlipidemia: Continue high-dose statin Fluids/Renal: Discontinue maintenance fluids ID: Procalcitonin pending GI/Nutrition: Mild hypoalbuminemia Tolerated breakfast Heme: Anemia DVT prophylaxis: SCDs until greater than 24 hours from TNKase administration -Aspirin 81 mg daily Endocrine: ICU hyperglycemia protocol Hemoglobin A1c pending Vascular access: Peripheral IVs Code Status: DNR in event of cardiac arrest, DNI in event of respiratory insufficiency -I discussed CODE STATUS with patient in conjunction with and son Disposition: Stable for downgrade from ICU (2) Thrombolytic medication administered within last 5 days: (3) Pacemaker: (4) Prediabetes: (5) Hyperlipidemia: (6) COPD (chronic obstructive pulmonary disease): (7) AAA (abdominal aortic aneurysm) without rupture: Admission and Anticipated Discharge Date Admission Date: June 23, 2022 Subjective Feels there has been significant improvement in his right upper extremity and speech. No headache no chest pain no shortness of breath Review of Systems Review of Systems: As per the HPI Physical Exam Physical Exam: General: Alert. nontoxic. Skin: Warm, dry, Head: Atraumatic Ears, nose, mouth and throat: airway patent Cardiovascular: Normal peripheral perfusion Respiratory: no respiratory distress Gastrointestinal: Non distended Musculoskeletal: No deformity Neuro: Mild weakness: very mild dysmetria of right upper extremity, no significant difference in strength of the right upper extremity. Speech very much improved Results & Data Results & Data ([facility]) Vital Signs (Past 12 Hours) Vital Signs Temp Pulse Pulse Resp BP Pulse Ox O2 Del Method 06/24/22 10:17 37.1 C 78 26 H 129/73 96 06/24/22 08:00 77 06/24/22 08:00 Nasal Cannula 06/24/22 09:17 37.1 C 81 27 H 122/65 96 06/24/22 08:17 37.1 C 80 29 H 121/70 93 06/24/22 07:17 36.5 C 77 24 126/71 97 Nasal Cannula 06/24/22 06:17 36.5 C 93 H 27 H 122/78 95 Nasal Cannula 06/24/22 05:17 36.5 C 74 26 H 121/66 96 Nasal Cannula 06/24/22 04:17 36.5 C 72 20 119/72 97 Nasal Cannula 06/24/22 03:17 36.5 C 86 23 117/75 93 Nasal Cannula 06/24/22 02:17 36.5 C 73 23 121/73 90 Nasal Cannula 06/24/22 00:00 73 06/24/22 01:17 36.6 C 64 24 121/82 94 Nasal Cannula 06/24/22 00:17 36.6 C 64 26 H 119/77 93 Nasal Cannula 06/23/22 23:17 36.6 C 70 24 119/75 94 Nasal Cannula O2 Flow Rate 06/24/22 10:17 06/24/22 08:00 06/24/22 08:00 3 06/24/22 09:17 06/24/22 08:17 06/24/22 07:17 3 06/24/22 06:17 3 06/24/22 05:17 3 06/24/22 04:17 3 06/24/22 03:17 3 06/24/22 02:17 3 06/24/22 00:00 06/24/22 01:17 3 06/24/22 00:17 3 06/23/22 23:17 4 Critical Care Results & Data Vital Signs (Past 12 Hours) Vital Signs Temp Pulse Pulse Resp BP Pulse Ox O2 Del Method 06/24/22 10:17 37.1 C 78 26 H 129/73 96 06/24/22 08:00 77 06/24/22 08:00 Nasal Cannula 06/24/22 09:17 37.1 C 81 27 H 122/65 96 06/24/22 08:17 37.1 C 80 29 H 121/70 93 06/24/22 07:17 36.5 C 77 24 126/71 97 Nasal Cannula 06/24/22 06:17 36.5 C 93 H 27 H 122/78 95 Nasal Cannula 06/24/22 05:17 36.5 C 74 26 H 121/66 96 Nasal Cannula 06/24/22 04:17 36.5 C 72 20 119/72 97 Nasal Cannula 06/24/22 03:17 36.5 C 86 23 117/75 93 Nasal Cannula 06/24/22 02:17 36.5 C 73 23 121/73 90 Nasal Cannula 06/24/22 00:00 73 06/24/22 01:17 36.6 C 64 24 121/82 94 Nasal Cannula 06/24/22 00:17 36.6 C 64 26 H 119/77 93 Nasal Cannula 06/23/22 23:17 36.6 C 70 24 119/75 94 Nasal Cannula O2 Flow Rate 06/24/22 10:17 06/24/22 08:00 06/24/22 08:00 3 06/24/22 09:17 06/24/22 08:17 06/24/22 07:17 3 06/24/22 06:17 3 06/24/22 05:17 3 06/24/22 04:17 3 06/24/22 03:17 3 06/24/22 02:17 3 06/24/22 00:00 06/24/22 01:17 3 06/24/22 00:17 3 06/23/22 23:17 4 Lab & Micro Results (Past 24 Hours) No Data to Display No Data to Display No Data to Display Diagnostic Findings (Past 24 Hours) Neck CTA 06/23/22 08:51 HEAD & NECK CTA HISTORY: Dizziness. Stroke Like Symptoms TECHNIQUE: Multiaxial CT images of the head were performed following the intravenous administration of contrast to evaluate the major cerebral vessels. Multiaxial CT images of the neck were also performed following the intravenous administration of contrast to evaluate the major cervical vessels. Maximum intensity projection images were also obtained. A dose lowering technique was utilized adhering to the principles of ALARA. COMPARISON: None. FINDINGS: There is no mass, hematoma, midline shift, or acute infarct. Visualized intracranial internal carotid arteries, distal vertebral arteries, and basilar artery are widely patent. There is no significant stenosis, occlusion, or aneurysm seen within the bilateral ACAs, MCAs, or assistant professor nurse education. There is 1.9 cm left parotid gland nodule. Mild calcified plaque within the bilateral carotid siphons. The major dural venous sinuses are patent. The aortic arch and proximal great vessels are widely patent. There is no significant stenosis, occlusion, or dissection identified within the bilateral common carotid, internal carotid, or vertebral arteries. Emphysema and chronic interstitial thickening noted at the lung apices. There is a 1.6 cm nodule within or adjacent to the inferior aspect of the right parotid gland. There is mild mediastinal and mild bilateral supraclavicular lymphadenopathy. Dominant mediastinal lymph node measures 1.9 x 1.5 cm. Mild asymmetric nodular thickening within the right apical pleural best seen on image 106 which measures 1.3 cm in thickness. Questionable subtle erosive changes at the right posterior second rib. IMPRESSION: 1. No significant stenosis, occlusion, or aneurysm within the [place]. 2. No significant stenosis, occlusion, or dissection identified within the c arotid or vertebral arteries. 3. Mild mediastinal and bilateral supraclavicular lymphadenopathy. There are also bilateral parotid gland nodules/lymph nodes as described above. Findings are concerning for a neoplastic process such as lymphoma 4. There is also mild asymmetric nodular thickening within the right lung apex with questionable subtle erosive changes within the right posterior second rib. This could also be due to an underlying neoplastic process. Therefore, follow-up nonemergent oncology consultation and PET CT is recommended for further evaluation of these findings. ACT 112: Positive. There are findings on this exam that require communication between the performing entity and the patient following Patient Test Result Information Act ([place] Act 112) guidelines. Electronically signed by: Jorge Berkowitz M.D. 06/23/2022 3:[address] 06/24/22 10:00 CT head/brain wo con CLINICAL HISTORY: 77 years-old Male with serial CT after TNK at 24hrs. Acute strokelike symptoms TECHNIQUE: Multiple axial CT images of the head were obtained without contrast. A dose lowering technique was utilized adhering to the principles of ALARA. CT DOSE: 537.48 mGy.cm COMPARISON: Head CT 06/23/2022 FINDINGS: No acute intracranial hemorrhage, midline shift, intracranial mass, hydrocephalus, or abnormal extra-axial collection. Chronic lacunar infarcts of the thalami. Involutional changes with white matter hypodensities suggestive of chronic microvascular ischemic disease. Ill-defined decreased attenuation with blurring of the hernandez-white interface within the superior left parietal lobe on image 22 series 2 for example. Edema may extend into the left temporal lobe. The calvarium is intact. Prior bilateral lens repair. The paranasal sinuses, mastoid air cells, and middle ear cavities are clear. IMPRESSION: 1. No acute intracranial hemorrhage, midline shift or hydrocephalus. 2. Ill-defined decreased attenuation within the left parietal lobe and also possibly the left temporal lobe with blurring of the hernandez-white interface is suspicious for an acute infarct. Correlation with MRI recommended. ACT 112: Negative or not required by law. The above report was generated using voice recognition software. It may contain grammatical, syntax or spelling errors. Electronically signed by: Eliezer Champagne M.D. 06/24/2022 10:25 AM I & O Totals 24 Hours 06/23/22 06/24/22 06/25/22 06:59 06:59 06:59 Intake Total 2310 / 2310 Output Total 1400 / 1400 Balance 910 / 910 Cumulative 06/23/22 08:33 thru 06/24/22 09:49 Intake Total 2310 Output Total 1400 Balance 910 RT Ventilator Mngmt (Last Documented) Ventilator Ordered Settings Respiratory Rate 26 06/24/22 10:17 Ventilator - PT Measurements Respiratory Rate 26 Coding Level of Care Code 85793 Subseq Hosp Care Lvl 2 Diagnoses Acute CVA (cerebrovascular accident) I63.9 Thrombolytic medication administered within last 5 days Z78.9 Pacemaker Z95.0 Prediabetes R73.03 Hyperlipidemia E78.5 COPD (chronic obstructive pulmonary disease) J44.9 AAA (abdominal aortic aneurysm) without rupture I71.4
[2022-06-24 11:50] LABS: Basophils # (auto) 0.01 K/uL (0-0.2); Basophils % (auto) 0.1 %; Eosinophils # (auto) 0.02 K/uL (0-0.50); Eosinophils % (auto) 0.3 %; Hematocrit (blood only) 34.9 % (40.1-51.0); Hemoglobin 11.4 g/dl (14.0-18.0); Immature Granulocytes # (auto) 0.02 K/uL (0.00-0.02); Immature Granulocytes % (auto) 0.3 %; Lymphocytes # (auto) 1.07 K/uL (1.2-3.4); Lymphocytes % (auto) 13.4 %; Mean Corpuscular Hemoglobin 26.7 pg (25.0-34.0); Mean Corpuscular Hgb Conc 32.7 g/dL (32.0-36.0); Mean Corpuscular Volume 81.7 fL (80.0-100.0); Mean Platelet Volume 9.9 fL (9.4-12.4); Monocytes # (auto) 0.85 K/uL (0.24-0.82); Monocytes % (auto) 10.7 %; Neutrophils # (auto) 6.01 K/uL (1.4-6.5); Neutrophils % (auto) 75.2 %; Platelet Count 330 K/uL (130-400); RDW Coefficient of Variation 17.6 % (11.5-14.5); RDW Standard Deviation 51.8 fL (36.4-46.3); Red Blood Count 4.27 M/uL (4.63-6.08); White Blood Count 7.98 K/ul (4.8-10.8)
[2022-06-24 12:13] LABS: BUN Creatinine Ratio 19.2 (10-20); Calcium 8.7 mg/dl (8.5-10.1); Chol HDL Ratio 3.9 (0-5); Creatinine Clr Calc Pharmacy 76.7 ml/min; Est GFR (African American) 103.7 ml/min; Est GFR (Non-African American) 89.5 ml/min; Phosphorus 3.1 mg/dl (2.5-4.9)
--- NOTE | 2022-06-24 12:43 | Neurology Progress Note ---
Date of Service June 24, 2022 Assessment & Plan (1) Acute CVA (cerebrovascular accident): Plan: Acute stroke localizing to the left cerebral hemisphere with evidence of an evolving infarct and follow-up noncontrast CT of the head. Patient's mild expressive speech difficulty has nearly resolved this morning his right upper extremity weakness has resolved as well. Symptoms improved after administration of TNKase during his emergency department assessment. Patient's speech fluency does seem modestly improved today, compared with my assessment of him yesterday. He does have some difficulty with simple calculations which may relate to his left hemispheric infarct. No left right confusion or finger anomia. Stroke risk factors for this patient I previously identified include hypertension, hyperlipidemia, and prediabetes. No known history of atrial fibrillation although he does have an ICD. Plan for follow-up brain MRI to be completed tomorrow, assuming his ICD is MRI compatible. MRI will be useful to further define the extent of his acute infarct. Patient's aspirin has been restarted which is appropriate. His atorvastatin has been continued as well. Patient blood pressure is well controlled without antihypertensive medication at this point in time. He has been on metoprolol as an outpatient, managed by his service employee, Dr. Spears. I will make further recommendations if necessary after my review of his brain MRI. Again, expectation is for an acute left hemispheric infarct based on his clinical presentation and follow-up CT head findings. Continue to work with PT/OT/speech therapy. No further immediate neurologic recommendations. Admission and Anticipated Discharge Date Admission Date: June 23, 2022 Subjective Follow-up for stroke Patient reports further improvement in his expressive speech difficulty compared with yesterday. Denies any residual weakness for the right arm or leg. No headache or vision disturbance, although does have some chronic vision loss related to macular degeneration. Blood pressure has been well controlled. Follow-up CT of the head completed this morning reveals a probable evolving infarct within the left temporoparietal lobe with blurring of the hernandez-white junction. No hemorrhage. Correlation with MRI was recommended. MRI scheduled for tomorrow, pending assessment ICD compatibility. Review of Systems Constitutional: no fever Eyes: no diplopia Neurologic: as per Subjective / HPI; no headache(s) and no memory loss Results & Data ([facility]) Vital Signs (Past 12 Hours) Vital Signs Temp Pulse Pulse Resp BP Pulse Ox O2 Del Method 06/24/22 10:17 37.1 C 78 26 H 129/73 96 06/24/22 08:00 77 06/24/22 08:00 Nasal Cannula 06/24/22 09:17 37.1 C 81 27 H 122/65 96 06/24/22 08:17 37.1 C 80 29 H 121/70 93 06/24/22 07:17 36.5 C 77 24 126/71 97 Nasal Cannula 06/24/22 06:17 36.5 C 93 H 27 H 122/78 95 Nasal Cannula 06/24/22 05:17 36.5 C 74 26 H 121/66 96 Nasal Cannula 06/24/22 04:17 36.5 C 72 20 119/72 97 Nasal Cannula 06/24/22 03:17 36.5 C 86 23 117/75 93 Nasal Cannula 06/24/22 02:17 36.5 C 73 23 121/73 90 Nasal Cannula 06/24/22 01:17 36.6 C 64 24 121/82 94 Nasal Cannula O2 Flow Rate 06/24/22 10:17 06/24/22 08:00 06/24/22 08:00 3 06/24/22 09:17 06/24/22 08:17 06/24/22 07:17 3 06/24/22 06:17 3 06/24/22 05:17 3 06/24/22 04:17 3 06/24/22 03:17 3 06/24/22 02:17 3 06/24/22 01:17 3 Laboratory Results WBC 7.98, hemoglobin 11.4, hematocrit 34.9, platelet count 330, sodium 138, potassium 4.0, BUN 14, creatinine 0.73, glucose 107, calcium 8.7, magnesium 2.0, triglycerides 113, cholesterol 113, LDL 61, VLDL 23, HDL [address] of the head is as described above. Echocardiogram completed this morning revealed an ejection fraction of 30 to 35%, moderately reduced left ventricular systolic function. Moderate global hypokinesis of the left ventricle. Apical wall motion abnormality may reflect pacemaker activation. Mild concentric left ventricular hypertrophy. Moderate to severe aortic stenosis with heavily calcified fused, and immobile right and noncoronary cusps. Left atrial size normal. No evidence for atrial septal defect. Exam (Neuro) Neurologic: Oriented to:: Person, Place and Time Memory: Short Term Intact and Remote Intact Attention: Span Intact and Concentration Intact Speech Fluency: negative Dysarthria or Dysfluency Speech Aphasia: Other (No difficulty with left right or finger naming. Did have some difficulty with simple computations.); negative Aphasia Fund of Knowledge: Vocabulary Cranial Nerves: Normal II, III, IV, , V, VII, VIII, IX, X, XI and XII Motor Strength: Normal Lower Extremities and Normal Upper Extremities Muscle Bulk/Involuntary Movements: No Involuntary Movements Sensation: Light Touch Intact Coordination: Normal; negative Limited Balance or Finger-Nose Abnormal Gait: Normal Station and Gait Coding Level of Care Code 58232 Subseq Hosp Care Lvl 2 Diagnoses Acute CVA (cerebrovascular accident) I63.9
[2022-06-24] MEDS ORDERED: oxyCODONE HCL IR 5 MG TAB (IMMEDIATE RELEASE) PO PRN (16:47)
[2022-06-24] MEDS ORDERED: ACETAMINOPHEN 325 MG TAB PO PRN (16:47)
--- NOTE | 2022-06-24 18:02 | Billing Data ---
Date of Service June 24, 2022 Coding Level of Care Code 24128 Subseq Hosp Care Lvl 2
[2022-06-24] MEDS: ALBUT/IPRATROP 3MG/0.5MG NEB 3 ML VIAL NEB PRN (19:20)
[2022-06-25] MEDS ORDERED: ONDANSETRON INJ 2 MG/ML 2 ML VIAL IV ONE (05:04)
[2022-06-25 06:27] LABS: Basophils # (auto) 0.03 K/uL (0-0.2); Basophils % (auto) 0.3 %; Eosinophils # (auto) 0.07 K/uL (0-0.50); Eosinophils % (auto) 0.6 %; Hematocrit (blood only) 33.2 % (40.1-51.0); Hemoglobin 10.3 g/dl (14.0-18.0); Immature Granulocytes # (auto) 0.03 K/uL (0.00-0.02); Immature Granulocytes % (auto) 0.3 %; Lymphocytes # (auto) 0.89 K/uL (1.2-3.4); Lymphocytes % (auto) 8.2 %; Mean Corpuscular Hemoglobin 25.6 pg (25.0-34.0); Mean Corpuscular Volume 82.4 fL (80.0-100.0); Mean Platelet Volume 9.3 fL (9.4-12.4); Monocytes # (auto) 0.69 K/uL (0.24-0.82); Monocytes % (auto) 6.3 %; Neutrophils # (auto) 9.17 K/uL (1.4-6.5); Neutrophils % (auto) 84.3 %; Platelet Count 315 K/uL (130-400); RDW Coefficient of Variation 17.5 % (11.5-14.5); RDW Standard Deviation 52.1 fL (36.4-46.3); Red Blood Count 4.03 M/uL (4.63-6.08); White Blood Count 10.88 K/ul (4.8-10.8)
[2022-06-25 07:13] LABS: BUN Creatinine Ratio 19.5 (10-20); Creatinine Clr Calc Pharmacy 68.3 ml/min; Est GFR (African American) 98.9 ml/min; Est GFR (Non-African American) 85.3 ml/min; Magnesium 1.9 mg/dl (1.7-2.4); Phosphorus 3.2 mg/dl (2.5-4.9); Potassium 3.9 mmol/L (3.5-5.1)
[2022-06-25] MEDS ORDERED: MECLIZINE HCL 25 MG TAB PO STA (08:15)
--- NOTE | 2022-06-25 08:18 | Critical Care Progress Note ---
Date of Service June 25, 2022 Assessment & Plan (1) Thrombolytic medication administered within last 5 days: (2) Acute CVA (cerebrovascular accident): (3) Vertigo: (4) Abnormal CT scan of lung: Plan Reason Critically Ill: 77-year-old male with acute CVA status post TNKase administration. He now has vertigo which may be neurologic in etiology and is associated with nausea and vomiting. PLAN: Neuro: Acute CVA -Status post TNKase at 1015 -Bleeding precautions -MRI pending -PT OT evaluations Resp: COPD, stable. Wean oxygen as tolerated. The patient does have evidence of adenopathy on the CT angiogram of the neck. Will obtain contrast-enhanced CT of the chest to better interrogate pulmonary parenchyma and extensive adenopathy. CV: Hemodynamically stable. No current issues. Continue statin Fluids/Renal: No current issues ID: No current issues GI/Nutrition: Mild hypoalbuminemia Tolerated breakfast Heme: Anemia DVT prophylaxis: SCDs until greater than 24 hours from TNKase administration -Aspirin 81 mg daily Endocrine: ICU hyperglycemia protocol Hemoglobin A1c pending Vascular access: Peripheral IVs Code Status: DNR in event of cardiac arrest, DNI in event of respiratory insufficiency -I discussed CODE STATUS with patient in conjunction with and son Disposition: Okay to transfer. Critical care will sign off. I will follow him with results of his CT scan. Feel free to contact with questions or concerns Admission and Anticipated Discharge Date Admission Date: June 23, 2022 Subjective Patient seen and examined. EMR reviewed. Discussed with off going airconditioning drafting officer as well as overnight critical care JAJA. The patient has developed significant vertigo. This does not change whether his eyes are open or closed. He feels the room is spinning. This is associated with some nausea. Its been unresponsive to Zofran. Complains of some weakness of his left lower extremity today. MRI has not yet been completed. Awaiting clearance for the patient's pacemaker/AICD Review of Systems Review of Systems: All systems reviewed & are unremarkable except as noted in Subjective Physical Exam 2 Physical Exam: General: Alert. nontoxic. Skin: Warm, dry, Head: Atraumatic Ears, nose, mouth and throat: airway patent Cardiovascular: Normal peripheral perfusion Respiratory: no respiratory distress Gastrointestinal: Non distended Musculoskeletal: No deformity Neuro: Mild weakness: 4+/5 of the right upper extremity, mild dysmetria of right upper extremity, Results & Data Results & Data ([facility]) Vital Signs (Past 12 Hours) Vital Signs Temp Pulse Resp BP Pulse Ox 06/25/22 04:00 36.5 C 80 25 H 110/71 95 06/25/22 03:00 36.5 C 91 H 27 H 113/59 L 90 06/25/22 02:00 36.5 C 89 30 H 84/65 L 96 06/25/22 01:00 36.5 C 88 28 H 99/73 L 94 06/25/22 00:00 36.5 C 83 31 H 108/71 95 06/24/22 23:00 36.5 C 95 H 22 98/77 L 96 06/24/22 22:00 106 H 26 H 93 06/24/22 21:00 36.5 C 101 H 24 103/61 93 06/25/22 00:00 82 Critical Care Results & Data Vital Signs (Past 12 Hours) Vital Signs Temp Pulse Resp BP Pulse Ox 06/25/22 04:00 36.5 C 80 25 H 110/71 95 06/25/22 03:00 36.5 C 91 H 27 H 113/59 L 90 06/25/22 02:00 36.5 C 89 30 H 84/65 L 96 06/25/22 01:00 36.5 C 88 28 H 99/73 L 94 06/25/22 00:00 36.5 C 83 31 H 108/71 95 06/24/22 23:00 36.5 C 95 H 22 98/77 L 96 06/24/22 22:00 106 H 26 H 93 06/24/22 21:00 36.5 C 101 H 24 103/61 93 06/25/22 00:00 82 Lab & Micro Results (Past 24 Hours) RBC 4.03 M/uL (4.63-6.08) L 06/25/22 WBC 10.88 K/ul (4.8-10.8) H 06/25/22 Hgb 10.3 g/dl (14.0-18.0) L 06/25/22 Hct 33.2 % (40.1-51.0) L 06/25/22 MCV 82.4 fL (80.0-100.0) 06/25/22 MCH 25.6 pg (25.0-34.0) 06/25/22 MCHC 31.0 g/dL (32.0-36.0) L 06/25/22 RDW Standard Deviation 52.1 fL (36.4-46.3) H 06/25/22 RDW Coefficient of Variation 17.5 % (11.5-14.5) H 06/25/22 Plt Count 315 K/uL (130-400) 06/25/22 MPV 9.3 fL (9.4-12.4) L 06/25/22 Neutrophils (%) (Auto) 84.3 % 06/25/22 Lymphocytes (%) (Auto) 8.2 % 06/25/22 Monocytes # (Auto) 0.69 K/uL (0.24-0.82) 06/25/22 Eosinophils # (Auto) 0.07 K/uL (0-0.50) 06/25/22 Immature Granulocyte % (Auto) 0.3 % 06/25/22 Neutrophils # (Auto) 9.17 K/uL (1.4-6.5) H 06/25/22 Lymphocytes # (Auto) 0.89 K/uL (1.2-3.4) L 06/25/22 Monocytes # (Auto) 0.69 K/uL (0.24-0.82) 06/25/22 Eosinophils # (Auto) 0.07 K/uL (0-0.50) 06/25/22 Basophils # (Auto) 0.03 K/uL (0-0.2) 06/25/22 Immature Granulocyte # (Auto) 0.03 K/uL (0.00-0.02) H 06/25 2 Na 138 mmol/L (136-145) 06/25/22 K 3.9 mmol/L (3.5-5.1) 06/25/22 Cl 105 mmol/L (98-107) 06/25/22 CO2 26 mmol/L (21-32) 06/25/22 Anion Gap 7 (3-11) 06/25/22 BUN 16 mg/dl (6-23) 06/25/22 Creatinine 0.82 mg/dl (0.6-1.4) 06/25/22 Estimated GFR ( Amer) 98.9 ml/min 06/25/22 Estimated GFR (Non-Af Amer) 85.3 ml/min 06/25/22 BUN/Creatinine Ratio 19.5 (10-20) 06/25/22 Glu 102 mg/dl (70-99(Fasting)) H 06/25/22 Ca 8.0 mg/dl (8.5-10.1) L 06/25/22 Phosphorus Level 3.2 mg/dl (2.5-4.9) 06/25/22 Mg 1.9 mg/dl (1.7-2.4) 06/25/22 05:48 Calcium Level 8.0 mg/dl (8.5-10.1) L 06/25/22 05:48 Diagnostic Findings (Past 24 Hours) Head CT 06/24/22 10:00 CT head/brain wo con CLINICAL HISTORY: 77 years-old Male with serial CT after TNK at 24hrs. Acute strokelike symptoms TECHNIQUE: Multiple axial CT images of the head were obtained without contrast. A dose lowering technique was utilized adhering to the principles of ALARA. CT DOSE: 537.48 mGy.cm COMPARISON: Head CT 06/23/2022 FINDINGS: No acute intracranial hemorrhage, midline shift, intracranial mass, hydrocephalus, or abnormal extra-axial collection. Chronic lacunar infarcts of the thalami. Involutional changes with white matter hypodensities suggestive of chronic microvascular ischemic disease. Ill-defined decreased attenuation with blurring of the hernandez-white interface within the superior left parietal lobe on image 22 series 2 for example. Edema may extend into the left temporal lobe. The calvarium is intact. Prior bilateral lens repair. The paranasal sinuses, mastoid air cells, and middle ear cavities are clear. IMPRESSION: 1. No acute intracranial hemorrhage, midline shift or hydrocephalus. 2. Ill-defined decreased attenuation within the left parietal lobe and also possibly the left temporal lobe with blurring of the hernandez-white interface is suspicious for an acute infarct. Correlation with MRI recommended. ACT 112: Negative or not required by law. The above report was generated using voice recognition software. It may contain grammatical, syntax or spelling errors. Electronically signed by: Eliezer Champagne M.D. 06/24/2022 10:25 AM I & O Totals 24 Hours 06/24/22 06/25/22 06/26/22 06:59 06:59 06:59 Intake Total 2310 / 2310 1571.5 / 1571.5 Output Total 1400 / 1400 904 / 904 Balance 910 / 910 667.5 / 667.5 Cumulative 06/23/22 08:33 thru 06/25/22 04:55 Intake Total 3881.5 Output Total 2304 Balance 1577.5 RT Ventilator Mngmt (Last Documented) Ventilator Ordered Settings Respiratory Rate 25 06/25/22 04:00 Ventilator - PT Measurements Respiratory Rate 25 Coding Level of Care Code 39543 Subseq Hosp Care Lvl 2 Diagnoses Thrombolytic medication administered within last 5 days Z78.9 Acute CVA (cerebrovascular accident) I63.[address] scan of lung R91.8
[2022-06-25 08:30] LABS: Estimated Average Glucose 128 mg/dl; Hemoglobin A1C 6.1 % (4.5-5.6)
[2022-06-25] MEDS: PROMETHAZINE HCL 12.5 MG in SODIUM CHLORIDE 0.9% 50 ML IV PRN (08:46)
[2022-06-25] MEDS ORDERED: OPTIRAY 320 100ml IV ONE (10:18)
[2022-06-25] MEDS: FLUTICASONE FUROATE 100MCG 14 PUFFS/INHALER INH SCH (10:51)
[2022-06-25] MEDS: UMECLIDINIUM/VILANTEROL 62.5/25MCG 7 PUFFS/INHALER INH SCH (10:51)
[2022-06-25] MEDS: ATORVASTATIN 40 MG TAB PO SCH (10:52)
[2022-06-25] MEDS: ASPIRIN 81 MG ECTAB PO SCH (10:52)
[2022-06-25] MEDS ORDERED: fentaNYL citrate 100 MCG/2 ML VIAL ONE (12:35)
[2022-06-25] MEDS ORDERED: MIDAZOLAM HCL 5 MG/ML 1 ML VIAL ONE (12:35)
--- NOTE | 2022-06-25 12:46 | Pre Anesthesia Assessment ---
Date of Service June 25, 2022 Pre Sedation Assessment Vital Signs Temp Pulse Pulse Resp BP Pulse Ox Pulse Ox 06/25/22 11:30 85 24 95 06/25/22 11:15 77 24 96 06/25/22 11:00 79 31 H 85 L 06/25/22 10:45 79 23 100 06/25/22 10:30 74 27 H 95 06/25/22 10:25 133/75 06/25/22 10:25 80 28 H 99 06/25/22 10:22 81 18 06/25/22 10:00 79 31 H 96 06/25/22 10:00 136/83 06/25/22 09:45 74 35 H 97 06/25/22 09:30 84 20 98 06/25/22 09:15 73 28 H 99 06/25/22 09:01 123/78 06/25/22 09:01 75 21 100 06/25/22 09:00 75 37 H 100 06/25/22 08:45 77 34 H 95 06/25/22 08:30 73 17 97 06/25/22 08:15 73 24 96 06/25/22 08:00 72 16 96 06/25/22 08:00 137/78 06/25/22 07:45 74 18 94 06/25/22 07:33 83 19 93 06/25/22 07:33 137/78 06/25/22 07:31 75 24 91 06/25/22 07:15 74 22 94 06/25/22 07:00 83 20 90 06/25/22 07:00 135/84 06/25/22 08:00 06/25/22 08:00 80 06/25/22 04:00 36.5 C 80 25 H 110/71 95 06/25/22 03:00 36.5 C 91 H 27 H 113/59 L 90 06/25/22 02:00 36.5 C 89 30 H 84/65 L 96 06/25/22 01:00 36.5 C 88 28 H 99/73 L 94 06/25/22 00:00 36.5 C 83 31 H 108/71 95 06/24/22 23:00 36.5 C 95 H 22 98/77 L 96 06/24/22 22:00 106 H 26 H 93 06/24/22 21:00 36.5 C 101 H 24 103/61 93 06/25/22 00:00 82 06/24/22 19:30 06/24/22 20:00 86 06/24/22 20:00 110 H 29 H 106/82 97 06/24/22 19:01 88 22 139/98 97 06/24/22 19:24 83 22 98 06/24/22 18:01 94 H 19 115/79 95 06/24/22 17:00 90 31 H 115/72 94 06/24/22 16:00 79 34 H 131/76 97 06/24/22 15:01 82 22 119/74 96 06/24/22 15:02 93 06/24/22 14:06 83 20 141/74 H 86 L O2 Del Method O2 Flow Rate O2 Flow Rate 06/25/22 11:30 06/25/22 11:15 06/25/22 11:00 06/25/22 10:45 06/25/22 10:30 06/25/22 10:25 06/25/22 10:25 06/25/22 10:22 06/25/22 10:00 06/25/22 10:00 06/25/22 09:45 06/25/22 09:30 06/25/22 09:15 06/25/22 09:01 06/25/22 09:01 06/25/22 09:00 06/25/22 08:45 06/25/22 08:30 06/25/22 08:15 06/25/22 08:00 06/25/22 08:00 06/25/22 07:45 06/25/22 07:33 06/25/22 07:33 06/25/22 07:31 06/25/22 07:15 06/25/22 07:00 06/25/22 07:00 06/25/22 08:00 Nasal Cannula 3 06/25/22 08:00 06/25/22 04:00 06/25/22 03:00 06/25/22 02:00 06/25/22 01:00 06/25/22 00:00 06/24/22 23:00 06/24/22 22:00 06/24/22 21:00 06/25/22 00:00 06/24/22 19:30 Nasal Cannula 3 06/24/22 20:00 06/24/22 20:00 06/24/22 19:01 06/24/22 19:24 Nasal Cannula 3 06/24/22 18:01 06/24/22 17:00 06/24/22 16:00 06/24/22 15:01 06/24/22 15:02 3 06/24/22 14:06 Pre-Sedation Airway Assessment Smoking Status: Former smoker Hx Sleep Apnea: No Short, Thick Neck: No Thyromental Distance: > or= 3.5 Finger Breadths Oral Cavity: + Dentures Mallampati Class: III ASA: ASA3 NPO Status Date of Last Intake of Fluids: 06/25/22 Time of Last Intake of Fluids: 07:00 Last Oral Intake of Fluids Comment: sip with meds Date of Last Intake of Solid Food: 06/24/22 Time of Last Intake of Solid Foods: 17:00 Notes The planned sedation has been discussed with the patient. Informed Consent was obtained. I have identified the patient, determined the appropriateness of sedation and have assessed the patient immediately prior to the procedure. All medicine(s) and interventions are by my order.
--- NOTE | 2022-06-25 13:08 | Magnetic Resonance Report ---
MR brain wo con HISTORY: 77 years-old Male CVA acute stroke like symptoms COMPARISON: Head CT 06/24/2022 TECHNIQUE: Multiplanar multisequence MRI of the brain was obtained without the use of IV contrast. FINDINGS: Confirmation of the acute infarct within the left parietal and posterior temporal lobes extending int o the insular ribbon. Area of infarcted brain parenchyma measures up to approximately 6 cm. There is increased signal on the diffusion-weighted series with decreased signal on the ADC map and moderately increased T2/FLAIR signal within the cortex. Additionally, there is a 1.1 cm focus of ill-defined re stricted diffusion chronic lacunar infarcts within the thalami. Within the inferior right cerebellar hemisphere on image 3 series 5 demonstrating decreased signal on the ADC map. There is no acute intracranial hemorrhage, midline shift, abnormal extra-axial collection, hydrocepha keyona or intracranial mass. There is a thin-walled intra-axial subcortical 1.1 cm cyst in the right occ ipital lobe on image 13 series 6 with mild surrounding increased FLAIR signal. Involutional changes. Mild T2/FLAIR hyperintense foci noted throughout the white matter suggestive of chronic microvascular ischemic disease. Cerebral venous sinuses and major arterial flow voids appear patent. Prior bilater al lens repair. IMPRESSION: 1. Confirmation of the acute infarct within the left parietal and posterior left temporal lobes exten ding into the posterior aspect of the left insular cortex. 2. Additional 1.1 cm acute or subacute infarct within the inferior right cerebellum. 3. There is an indeterminate intra-axial subcortical 1.1 cm cystic lesion within the right occipital lobe which appears to follow CSF on all sequences and demonstrates mild peripheral increased FLAIR si gnal. A 6 month follow-up brain MRI with and without IV contrast is recommended. ACT 112: Negative or not required by law. The above report was generated using voice recognition software. It may contain grammatical, syntax o r spelling errors. Electronically signed by: Eliezer Champagne M.D. 06/25/2022 1:07 PM
--- NOTE | 2022-06-25 13:24 | Post Anesthesia Assessment ---
Date of Service June 25, 2022 Post Sedation Assessment Vital Signs Temp Pulse Pulse Resp BP BP Pulse Ox 06/25/22 09:30 06/25/22 13:17 86 14 95/53 L 98 06/25/22 13:12 74 16 95/55 L 98 06/25/22 13:07 75 16 101/65 98 06/25/22 13:02 76 16 100/62 97 06/25/22 12:57 78 20 97/63 L 99 06/25/22 12:52 74 18 121/64 100 06/25/22 12:50 75 18 130/68 100 06/25/22 12:42 36.7 C 82 20 171/98 H 100 06/25/22 11:30 85 24 95 06/25/22 11:15 77 24 96 06/25/22 11:00 79 31 H 85 L 06/25/22 10:45 79 23 100 06/25/22 10:30 74 27 H 95 06/25/22 10:25 133/75 06/25/22 10:25 80 28 H 99 06/25/22 10:22 81 18 06/25/22 10:00 79 31 H 96 06/25/22 10:00 136/83 06/25/22 09:45 74 35 H 97 06/25/22 09:30 84 20 98 06/25/22 09:15 73 28 H 99 06/25/22 09:01 123/78 06/25/22 09:01 75 21 100 06/25/22 09:00 75 37 H 100 06/25/22 08:45 77 34 H 95 06/25/22 08:30 73 17 97 06/25/22 08:15 73 24 96 06/25/22 08:00 72 16 96 06/25/22 08:00 137/78 06/25/22 07:45 74 18 94 06/25/22 07:33 83 19 93 06/25/22 07:33 137/78 06/25/22 07:31 75 24 91 06/25/22 07:15 74 22 94 06/25/22 07:00 83 20 90 06/25/22 07:00 135/84 06/25/22 08:00 06/25/22 08:00 80 06/25/22 04:00 36.5 C 80 25 H 110/71 95 06/25/22 03:00 36.5 C 91 H 27 H 113/59 L 90 06/25/22 02:00 36.5 C 89 30 H 84/65 L 96 06/25/22 01:00 36.5 C 88 28 H 99/73 L 94 06/25/22 00:00 36.5 C 83 31 H 108/71 95 06/24/22 23:00 36.5 C 95 H 22 98/77 L 96 06/24/22 22:00 106 H 26 H 93 06/24/22 21:00 36.5 C 101 H 24 103/61 93 06/25/22 00:00 82 06/24/22 19:30 06/24/22 20:00 86 06/24/22 20:00 110 H 29 H 106/82 97 06/24/22 19:01 88 22 139/98 97 06/24/22 19:24 83 22 98 06/24/22 18:01 94 H 19 115/79 95 06/24/22 17:00 90 31 H 115/72 94 06/24/22 16:00 79 34 H 131/76 97 06/24/22 15:01 82 22 119/74 96 06/24/22 15:02 06/24/22 14:06 83 20 141/74 H 86 L Pulse Ox O2 Del Method O2 Flow Rate O2 Flow Rate 06/25/22 09:30 Nasal Cannula 06/25/22 13:17 Oxymask 8 06/25/22 13:12 Oxymask 8 06/25/22 13:07 Oxymask 8 06/25/22 13:02 Oxymask 8 06/25/22 12:57 Oxymask 8 06/25/22 12:52 Oxymask 8 06/25/22 12:50 Oxymask 8 06/25/22 12:42 Oxymask 6 06/25/22 11:30 06/25/22 11:15 06/25/22 11:00 06/25/22 10:45 06/25/22 10:30 06/25/22 10:25 06/25/22 10:25 06/25/22 10:22 06/25/22 10:00 06/25/22 10:00 06/25/22 09:45 06/25/22 09:30 06/25/22 09:15 06/25/22 09:01 06/25/22 09:01 06/25/22 09:00 06/25/22 08:45 06/25/22 08:30 06/25/22 08:15 06/25/22 08:00 06/25/22 08:00 06/25/22 07:45 06/25/22 07:33 06/25/22 07:33 06/25/22 07:31 06/25/22 07:15 06/25/22 07:00 06/25/22 07:00 06/25/22 08:00 Nasal Cannula 3 06/25/22 08:00 06/25/22 04:00 06/25/22 03:00 06/25/22 02:00 06/25/22 01:00 06/25/22 00:00 06/24/22 23:00 06/24/22 22:00 06/24/22 21:00 06/25/22 00:00 06/24/22 19:30 Nasal Cannula 3 06/24/22 20:00 06/24/22 20:00 06/24/22 19:01 06/24/22 19:24 Nasal Cannula 3 06/24/22 18:01 06/24/22 17:00 06/24/22 16:00 06/24/22 15:01 06/24/22 15:02 93 3 06/24/22 14:06 Recovery Score Activity: Moves 4 extremities Respiration: Deep Breath/Cough Circulation: +/-20-49% PreAnes Value Consciousness: Arouseable (by name) Oxygen Saturation: O2 needed for >90% Post Anesthesia Score: 7 Discharge Sedation Level of Care: Fast Track Phase II Post Sedation Plan On clinical assessment, the patient appears to have tolerated the sedation without complications. Patient is recovering as anticipated. Patient will continue to be monitored by nursing and may be discharged when sedation discharge criteria are met per below protocol. Upon Completions of procedure up to 15 minutes continue every 5 minute vital signs and the P.A.R. score; then discharge to a Phase I or Fast Track to Phase II per the following guidelines: * Discharge Patient to appropriate Phase II area if PAR is 8 or greater or return to pre- procedure baseline. The post - procedure orders will be as directed. * If PAR score is less than 8 or not return to pre-procedure baseline then patient will follow Phase I monitoring till PAR is reached for Phase II. The Phase I may be done in procedure room or may call to secure a Phase I area. * If naloxone or flumazenil are used for reversal, hold in Phase I for continued monitoring from when last reversal dose was given for a minimum of 60 minutes or longer pending the nurse and/or physician discretion of patient condition before discharge to Phase II. Please call the Sedation Physician to re-evaluate and complete post-note for discharge to Phase II area. Do NOT discharge from procedure sedation or Phase 1 until post- sedation evaluation note is complete by procedure /sedation MD Sedation Discharge Instructions to be given to the patient at discharge to home.
--- NOTE | 2022-06-25 13:27 | Procedure Note ---
Procedure Note: Bronchoscopy Procedure Procedure: Fiberoptic bronchoscopy Endobronchial ultrasound evaluation during bronchoscopy Endobronchial ultrasound with transbronchial needle aspiration of lymph nodes, single station Conscious sedation Provider: Loyd Hoffman MD Consent: Signed by patient and timeout verified prior to procedure. Indication: Abnormal CT scan Sedation start: 1252 Sedation end: 1325 Conscious sedation: 5 mg Versed, 125 mcg fentanyl, topical lidocaine per RT protocol EBL: 5 mL Procedure: Patient was brought to the bronchoscopy suite. Consent was verified. Appropriate radiographic studies had been reviewed prior to the procedure. Standard monitoring was applied. Oxygen was administered. After topical anesthesia of the airways per respiratory therapy protocol, the fiberoptic scope was advanced through the oropharynx. Oropharynx was unremarkable. Vocal cords were visualized and were normal in function and appearance although the left cord did appear slightly less mobile than the right. Topical anesthesia of the cords was achieved with instillation of lidocaine through the scope. Scope was then passed through the vocal cords. The trachea was tortuous. Main carlos was slightly splayed. Anesthesia of the lower airways was achieved with instillation of lidocaine through the scope. A sequential and systematic examination of the lower airways was conducted. The right-sided airways were patent although the mucosa at our C2 was abnormal with extrinsic compression and narrowing of the right upper lobe anterior, apical, and posterior segments. Mucosa was very friable. Bronchus intermedius also showed some mucosal abnormalities. See separate photos. The right middle lobe was slightly [place]. Lower lobe was patent. Left-sided airways were widely patent with normal anatomic configuration and the mucosa appeared normal. After the inspection bronchoscopy was completed, the fiberoptic scope was withdrawn from the airway and the endobronchial ultrasound advanced through the bite- block. The scope was navigated through the vocal cords. A systematic inspection of mediastinal and hilar lymph node stations was conducted including 2R/L, 4R/L, 7, and 10 and 11 R/L. Pathologic adenopathy was identified in the 2R, 4R, and 10 R stations. After the survey EBUS was completed, the scope was directed to the 2R lymph node station. Using a 21-gauge needle and under direct ultrasound visualization, a total of 8 passes of the lymph node were undertaken. Rapid onsite cytologic evaluation was available and confirmed adequacy of specimen. Minimal bleeding was encountered which was controlled with instillation of saline. Once adequate specimen had been collected and hemostasis was confirmed, the scope was withdrawn. Bite block was removed.. The patient tolerated the procedure well without obvious complication. Patient was returned to the recovery room. Impression: 1. Abnormal inspection bronchoscopy with narrowing of right upper lobe and mucosal abnormalities from RC1 extending into the right middle lobe and bronchus intermedius. 2. Pathologic adenopathy identified within 2R, 4R, and 10 R stations. Status post endobronchial ultrasound transbronchial needle aspiration. Await final path [facility] [place] Procedure Codes (Charges) Pulmonary/Thoracic Procedure 1: Pulmonary and Thoracic: 64226 Bronchoscopy, w/EBUS 1 or 2 mediastinal Sedation/Anesthesia Procedure 2: Sedation/Anesthesia: 01063 Mod Sedation by the same physician;Init15 Min Child Age 5 & Up Total Sedation Time (minutes): 32 Procedure 3: Sedation/Anesthesia: 67088 Mod Sedation by the same physician; Ea [id number] Minutes Total Sedation Time (minutes): 32
--- NOTE | 2022-06-25 13:31 | Hospitalist Progress Note ---
Date of Service June 25, 2022 Assessment & Plan (1) Acute CVA (cerebrovascular accident): Plan: -Last known well at 8:20 AM on 06/24, symptoms included RUE weakness with dysarthria, ataxia -TNKase administered at 10:13 AM on 06/24, improvement in symptoms noted -CT Head- decreased attenuation of L parietal, possibly temporal lobe -MRI brain- acute L parietal + L posterior temporal lobe infarct, acute/subacute R inferior cerebellum infarct -Additional 1.1 cm cystic lesion of R occipital lobe- recommend 6 month f/u repeat MRI -Currently hemodynamically stable, BP typically 100/60, neurologic status improving -Aspirin resumed 24 hours after TNKase, continue high-intensity statin -Neuro checks q4h -Downgraded from ICU on 06/25 to PCU (2) Heart failure with reduced ejection fraction: Plan: -Echocardiogram 06/24- EF 30-35, moderate global LV hypokinesis, moderate/severe aortic stenosis -Echocardiogram 04/2021- EF 50-55% -Pt only on metoprolol XR 25 mg at home -Given HFrEF, pt's medication regimen should include beta amaya, sacubitril/valsartan, spironolactone and SGLT2 inhibitor -BP currently average 100/60, resume metoprolol or possibly initiate valsartan once BP improves -Pt does follow with [facility] cardiology -Currently euvolemic on exam, does not appear to be in CHF exacerbation (3) Pulmonary nodule 1 cm or greater in diameter: Plan: -Neck CTA on admission- asymmetric nodular mass of R lung apex concerning for potential malignancy -Also demonstrating mild mediastinal/supraclavicular/parotid b/l lymphadenopathy concerning for malignancy -CT chest 06/25, awaiting read -Bronchoscopy performed- highly concerning for malignancy of R upper/middle lobe, aspirated and pathology report pending -Anticoagulation initiated given 24 hours s/p TNKase- Lovenox 40 mg daily (4) CAD (coronary artery disease): Plan: - Troponin mildly elevated 23.2 on admission, will repeat - No ACS symptoms at present, EKG negative for acute ST changes Troponin mildly elevated high-sensitivity on admission 23.2, will repeat Aspirin resumed due to 24 hours s/p TNKase, continue atorvastatin 40 mg - Resume metoprolol once BP improves (5) COPD (chronic obstructive pulmonary disease): Plan: Convert fluticasone, Anoro daily - Currently saturating well on 3L oxymask Incentive spirometry, flutter valve (6) Hyperlipidemia: Plan: - Continue atorvastatin 40 mg (7) Prediabetes: Plan: BSG 124 on admission A1C 6.1% (8) GERD (gastroesophageal reflux disease): Plan: Continue Protonix 40 mg IV daily while in hospital (9) AAA (abdominal aortic aneurysm) without rupture: Plan: Status post repair with Dr. Stark in 2014, yearly follow-up Plan Diet: Heart healthy DVT prophylaxis: SCDs Code: DNR/DNI Dispo: Downgraded from ICU to PCU Admission and Anticipated Discharge Date Admission Date: June 23, 2022 Supervising Physician Co-Signing Physician Notes I also saw the patient confirmed eisenberg portions of the history and physical examination. Agree with the impression and plan as noted in the resident documentation. Given the patient's evidence of adenopathy on the CT angiogram of the neck, the patient underwent a contrast-enhanced CT of the chest to better evaluate the pulmonary parenchyma and a extensive adenopathy. This demonstrated consolidation of the right upper lobe with bronchial wall thickening and right hilar and mediastinal lymphadenopathy. The patient subsequently went a fiberoptic bronchoscopy which demonstrated narrowing of the right upper lobe and mucosal abnormalities from RC1 extending into the right middle lobe, pathologic adenopathy was also noted. Patient underwent endobronchial ultrasound transbronchial needle aspiration; pathology pending. When we saw the patient this afternoon, he had been already briefed upon the results of the CT scan and bronchoscopy by the pulmonary medicine/critical care team. He has no new complaints today. Some dizziness/vertiginous symptoms. Exam 109/63, 76, 18, 37, 92% on 2 L via nasal cannula Heart sounds are distant but regular Nonlabored respirations, faint expiratory wheeze, right greater than left Data MRI performed 06/25/2022 shows confirmation of acute infarct within the left parietal and posterior left temporal lobes extending into the posterior aspect of the left insular cortex and an additional 1.1 cm acute or subacute infarct within the inferior right cerebellum. Echocardiogram performed 06/24/2022 shows global hypokinesis with an EF of 30-35%. In reviewing cardiology notes, ejection fraction was 50 to 55% in April,. Assessment and plan Acute CVA Proximal consolidation with lymphadenopathy concerning for pulmonary malignancy Heart failure with reduced ejection fraction, new Will start DVT prophylaxis, Lovenox 40 mg daily Trial promethazine for the vertigo As blood pressure permits, resume beta-amaya; consider valsartan and/or Entresto. Likely can switch Protonix from IV to PO Await pathology Additional per resident documentation Subjective No acute events overnight. Pt denies any headache, new weakness, numbness. Does report dizziness that is constant, feels like room is spinning. Associated nausea but has not had any episodes of emesis, no associated abdominal pain. Review of Systems Review of Systems: Per subjective Physical Exam Physical Exam: General: Alert, no acute distress HEENT: PERRLA, EOMI, moist mucous membranes Cardiovascular: RRR, normal S1 and S2 Resp: CTAB, unlabored respirations Abd: soft, nontender, nondistended Neuro: 4/5 strength of LLE, 4/5 strength in R UE, no other focal motor or sensory deficits, speech clear and not slurred, no pronator drift Results & Data Results & Data ([facility]) Vital Signs (Past 12 Hours) Vital Signs Temp Pulse Pulse Resp BP BP Pulse Ox 06/25/22 09:30 06/25/22 13:07 75 16 101/65 98 06/25/22 13:02 76 16 100/62 97 06/25/22 12:57 78 20 97/63 L 99 06/25/22 12:52 74 18 121/64 100 06/25/22 12:50 75 18 137/73 100 06/25/22 12:42 36.7 C 82 20 171/98 H 100 06/25/22 11:30 85 24 95 06/25/22 11:15 77 24 96 06/25/22 11:00 79 31 H 85 L 06/25/22 10:45 79 23 100 06/25/22 10:30 74 27 H 95 06/25/22 10:25 133/75 06/25/22 10:25 80 28 H 99 06/25/22 10:22 81 18 06/25/22 10:00 79 31 H 96 06/25/22 10:00 136/83 06/25/22 09:45 74 35 H 97 06/25/22 09:30 84 20 98 06/25/22 09:15 73 28 H 99 06/25/22 09:01 123/78 06/25/22 09:01 75 21 100 06/25/22 09:00 75 37 H 100 06/25/22 08:45 77 34 H 95 06/25/22 08:30 73 17 97 06/25/22 08:15 73 24 96 06/25/22 08:00 72 16 96 06/25/22 08:00 137/78 06/25/22 07:45 74 18 94 06/25/22 07:33 83 19 93 06/25/22 07:33 137/78 06/25/22 07:31 75 24 91 06/25/22 07:15 74 22 94 06/25/22 07:00 83 20 90 06/25/22 07:00 135/84 06/25/22 08:00 06/25/22 08:00 80 06/25/22 04:00 36.5 C 80 25 H 110/71 95 06/25/22 03:00 36.5 C 91 H 27 H 113/59 L 90 06/25/22 02:00 36.5 C 89 30 H 84/65 L 96 O2 Del Method O2 Flow Rate 06/25/22 09:30 Nasal Cannula 06/25/22 13:07 Oxymask 8 06/25/22 13:02 Oxymask 8 06/25/22 12:57 Oxymask 8 06/25/22 12:52 Oxymask 8 06/25/22 12:50 Oxymask 8 06/25/22 12:42 Oxymask 6 06/25/22 11:30 06/25/22 11:15 06/25/22 11:00 06/25/22 10:45 06/25/22 10:30 06/25/22 10:25 06/25/22 10:25 06/25/22 10:22 06/25/22 10:00 06/25/22 10:00 06/25/22 09:45 06/25/22 09:30 06/25/22 09:15 06/25/22 09:01 06/25/22 09:01 06/25/22 09:00 06/25/22 08:45 06/25/22 08:30 06/25/22 08:15 06/25/22 08:00 06/25/22 08:00 06/25/22 07:45 06/25/22 07:33 06/25/22 07:33 06/25/22 07:31 06/25/22 07:15 06/25/22 07:00 06/25/22 07:00 06/25/22 08:00 Nasal Cannula 3 06/25/22 08:00 06/25/22 04:00 06/25/22 03:00 06/25/22 02:00 Resident Activity Tracking Resident Involvement: Resident Care Provided Care Provided: Adult Hospital Medicine
[2022-06-25] MEDS: ALBUT/IPRATROP 3MG/0.5MG NEB 3 ML VIAL NEB PRN (14:55)
--- NOTE | 2022-06-25 15:10 | Neurology Progress Note ---
Date of Service June 25, 2022 Assessment & Plan (1) Acute CVA (cerebrovascular accident): (2) Brain lesion: Plan Acute infarct within the left parietal and posterior left temporal lobes extending to the posterior aspect of the left insular cortex. Acute to subacute 1 cm infarct within the right cerebellum. Patient has mild difficulty with speech fluency and perhaps some difficulty with simple calculations. Otherwise, has an intact neurological examination, no associated hemiparesis. No evidence of right hemiataxia in spite of the acute to subacute inferior right cerebellar stroke identified on MRI. There is also an unusual cystic appearing lesion within the right occipital lobe with a rim of increased FLAIR signal. Although the lesion may be benign, a metastatic deposit cannot be completely excluded, especially in light of possible underlying malignancy, possible lung cancer, bronchoscopy completed today, pathology pending. Patient may continue with daily low-dose aspirin and atorvastatin 40 mg/day. Continue with PT/OT/speech therapy. Patient will need to follow-up gadolinium-enhanced brain MRI to be completed in 6 months to reassess the recently identified right occipital lobe cystic lesion. Underlying metastatic deposit not completely excluded. Admission and Anticipated Discharge Date Admission Date: June 23, 2022 Subjective Follow-up for stroke The patient continues to have mild difficulty with expressive speech, no associated right hemiparesis, no vision loss, no headache. Noncontrast brain MRI completed today. There is an acute infarct within the left parietal and posterior left temporal lobes extending into the posterior aspect of the left insula. There is a 1.1 cm acute to subacute infarct within the inferior right cerebellum. There is an indeterminate 1.1 cm cystic lesion within the right occipital lobe with signal consistent with CSF. 6-month follow-up with IV contrast recommended. I independently reviewed the images and agree with these findings as described by the interpreting radiologist. Review of Systems Eyes: no blind spots and no diplopia Neurologic: as per Subjective / HPI and + abnormal speech; no localized weakness, no loss of sensation, no headache(s) and no memory loss Results & Data ([facility]) Vital Signs (Past 12 Hours) Vital Signs Temp Pulse Pulse Resp BP BP Pulse Ox 06/25/22 14:01 77 24 93 06/25/22 14:01 109/63 06/25/22 14:00 75 22 93 06/25/22 13:57 106/66 06/25/22 13:57 76 22 90 06/25/22 13:52 76 22 06/25/22 13:00 06/25/22 14:00 37.0 C 06/25/22 09:30 06/25/22 13:32 74 14 100/62 96 06/25/22 13:27 78 14 101/57 L 96 06/25/22 13:22 89 14 96/55 L 95 06/25/22 13:17 86 14 95/53 L 98 06/25/22 13:12 74 16 95/55 L 98 06/25/22 13:07 75 16 101/65 98 06/25/22 13:02 76 16 100/62 97 06/25/22 12:57 78 20 97/63 L 99 06/25/22 12:52 74 18 121/64 100 06/25/22 12:50 75 18 130/68 100 06/25/22 12:42 36.7 C 82 20 171/98 H 100 06/25/22 11:30 85 24 95 06/25/22 11:15 77 24 96 06/25/22 11:00 79 31 H 85 L 06/25/22 10:45 79 23 100 06/25/22 10:30 74 27 H 95 06/25/22 10:25 133/75 06/25/22 10:25 80 28 H 99 06/25/22 10:22 81 18 06/25/22 10:00 79 31 H 96 06/25/22 10:00 136/83 06/25/22 09:45 74 35 H 97 06/25/22 09:30 84 20 98 06/25/22 09:15 73 28 H 99 06/25/22 09:01 123/78 06/25/22 09:01 75 21 100 06/25/22 09:00 75 37 H 100 06/25/22 08:45 77 34 H 95 06/25/22 08:30 73 17 97 06/25/22 08:15 73 24 96 06/25/22 08:00 72 16 96 06/25/22 08:00 137/78 06/25/22 07:45 74 18 94 06/25/22 07:33 83 19 93 06/25/22 07:33 137/78 06/25/22 07:31 75 24 91 06/25/22 07:15 74 22 94 06/25/22 07:00 83 20 90 06/25/22 07:00 135/84 06/25/22 08:00 06/25/22 08:00 80 06/25/22 04:00 36.5 C 80 25 H 110/71 95 06/25/22 03:00 36.5 C 91 H 27 H 113/59 L 90 O2 Del Method O2 Flow Rate 06/25/22 14:01 06/25/22 14:01 06/25/22 14:00 06/25/22 13:57 06/25/22 13:57 06/25/22 13:52 06/25/22 13:00 Oxymask 06/25/22 14:00 06/25/22 09:30 Nasal Cannula 06/25/22 13:32 Oxymask 3 06/25/22 13:27 Oxymask 3 06/25/22 13:22 Oxymask 3 06/25/22 13:17 Oxymask 8 06/25/22 13:12 Oxymask 8 06/25/22 13:07 Oxymask 8 06/25/22 13:02 Oxymask 8 06/25/22 12:57 Oxymask 8 06/25/22 12:52 Oxymask 8 06/25/22 12:50 Oxymask 8 06/25/22 12:42 Oxymask 6 06/25/22 11:30 06/25/22 11:15 06/25/22 11:00 06/25/22 10:45 06/25/22 10:30 06/25/22 10:25 06/25/22 10:25 06/25/22 10:22 06/25/22 10:00 06/25/22 10:00 06/25/22 09:45 06/25/22 09:30 06/25/22 09:15 06/25/22 09:01 06/25/22 09:01 06/25/22 09:00 06/25/22 08:45 06/25/22 08:30 06/25/22 08:15 06/25/22 08:00 06/25/22 08:00 06/25/22 07:45 06/25/22 07:33 06/25/22 07:33 06/25/22 07:31 06/25/22 07:15 06/25/22 07:00 06/25/22 07:00 06/25/22 08:00 Nasal Cannula 3 06/25/22 08:00 06/25/22 04:00 06/25/22 03:00 Laboratory Results WBC 10.88, hemoglobin 10.3, hematocrit 33.2, MCV 82.4, platelet count 315, sodium 138, potassium 3.9, BUN 16, creatinine 0.82, glucose 102, calcium 8.0, magnesium 1.9 Exam (Neuro) Neurologic: Oriented to:: Person, Place and Time Memory: Short Term Intact and Remote Intact Attention: Span Intact and Concentration Intact Speech Fluency: Dysfluency; negative Dysarthria Speech Aphasia: negative Aphasia Fund of Knowledge: Vocabulary Cranial Nerves: Normal II, III, IV, , V, VII, VIII, IX, X, XI and XII Motor Strength: Normal Lower Extremities and Normal Upper Extremities Muscle Bulk/Involuntary Movements: No Involuntary Movements Coordination: negative Finger-Nose Abnormal or Heel-Gupta Abnormal PG Care Time/CCT Total # of Minutes Spent Total Time Spent with Patient: Total time spent is greater than 50% in coordination of care (as documented) at patient's floor/unit and/or counseling patient: Coding Level of Care Code 06885 Subseq Hosp Care Lvl 2 Diagnoses Acute CVA (cerebrovascular accident) I63.9 Brain lesion G93.9
--- NOTE | 2022-06-25 15:46 | CT Scan Report ---
CT chest diagnostic w con CLINICAL HISTORY: adenopathy TECHNIQUE: Multidetector row helical CT of the chest was performed with intravenous contrast. Coronal and sagittal reformations were obtained. Automated dose lowering techniques and/or adjustment accord ing to patient size were utilized for this exam. CT DOSE: 397.41 mGycm Comparison: None available at the time of this dictation. FINDINGS: Lungs and pleura: Diffuse centrilobular emphysema is seen most prominent in the upper lobes. There is a small right and trace left pleural effusion. Airspace opacity is seen in the right upper lobe. Bro nchial wall thickening is also seen in this region. There is a 6 mm nodule in the left lower lobe (se kristel 4 image 214). Heart and pericardium: Heart size is normal. No pericardial effusion. Vessels: Unremarkable. Mediastinum and khadra: Confluent lymphadenopathy is seen in the right hilum, the largest node likely m easures approximately 25 mm in short axis. Enlarged subcarinal and right paratracheal nodes are also seen. Chest wall and lower neck: Unremarkable. Abdomen: A large hiatal hernia is seen. Bones: Degenerative changes in the thoracic spine. IMPRESSION: 1. Small right and trace left pleural effusion with underlying atelectasis. 2. Consolidation in the right upper lobe with bronchial wall thickening. Right hilar and mediastinal lymphadenopathy may be reactive. Follow-up to resolution is recommended. 3. Emphysema. ACT 112: Negative or not required by law. Electronically signed by: Rafa Borja M.D. 06/25/2022 3:45 PM
[2022-06-26 05:15] LABS: Hematocrit (blood only) 33.6 % (40.1-51.0); Hemoglobin 10.6 g/dl (14.0-18.0); Mean Corpuscular Hemoglobin 26.1 pg (25.0-34.0); Mean Corpuscular Hgb Conc 31.5 g/dL (32.0-36.0); Mean Corpuscular Volume 82.8 fL (80.0-100.0); Mean Platelet Volume 9.3 fL (9.4-12.4); Platelet Count 288 K/uL (130-400); RDW Coefficient of Variation 17.5 % (11.5-14.5); RDW Standard Deviation 52.7 fL (36.4-46.3); Red Blood Count 4.06 M/uL (4.63-6.08); White Blood Count 7.39 K/ul (4.8-10.8)
[2022-06-26 05:38] LABS: Albumin Globulin Ratio 1.2 (0.9-2); BUN Creatinine Ratio 18.5 (10-20); Bilirubin,Total 0.7 mg/dl (0.2-1.0); Calcium 8.2 mg/dl (8.5-10.1); Creatinine Clr Calc Pharmacy 60.9 ml/min; Est GFR (African American) 92.7 ml/min; Est GFR (Non-African American) 79.9 ml/min; Globulin 2.6 gm/dl (2.5-4.0); Magnesium 1.8 mg/dl (1.7-2.4); Potassium 4.1 mmol/L (3.5-5.1); Total Protein 5.6 gm/dl (6.0-8.3)
--- NOTE | 2022-06-26 06:54 | Hospitalist Progress Note ---
Date of Service June 26, 2022 Assessment & Plan (1) Acute CVA (cerebrovascular accident): Plan: -Last known well at 8:20 AM on 06/24, symptoms included RUE weakness with dysarthria, ataxia -TNKase administered at 10:13 AM on 06/24, improvement in symptoms noted -CT Head- decreased attenuation of L parietal, possibly temporal lobe -MRI brain 06/25- acute L parietal + L posterior temporal lobe infarct, acute/subacute R inferior cerebellum infarct -Additional 1.1 cm cystic lesion of R occipital lobe- recommend 6 month f/u repeat MRI -Currently hemodynamically stable, BP improved, neurologic status improving -Continue aspirin, continue high-intensity statin -Neuro checks q4h (2) Pulmonary nodule 1 cm or greater in diameter: Plan: -Neck CTA on admission- asymmetric nodular mass of R lung apex concerning for potential malignancy -Also demonstrating mild mediastinal/supraclavicular/parotid b/l lymphadenopathy concerning for malignancy -CT chest 06/25- small b/l pleural effusions w/ atelectasis, R upper lobe consolidation with bronchial wall thickening -Recommend repeat CT t oevaluate resolution -Bronchoscopy performed 06/25- highly concerning for malignancy of R upper/middle lobe, aspirated and pathology report pending -DVT prophylaxis initiated on 06/25 due to cancer prothrombotic state- Lovenox 40 mg daily -Pulmonology consulted and following -Will likely require outpatient PET -Will discuss with hematology/oncology -Awaiting pathology results -Respiratory status stable at 3L NC- may need home O2 on discharge- 2 step to be completed (3) Heart failure with reduced ejection fraction: Plan: -Echocardiogram 06/24- EF 30-35, moderate global LV hypokinesis, moderate/severe aortic stenosis -Echocardiogram 04/2021- EF 50-55% -Pt only on metoprolol XR 25 mg at home -Given HFrEF, pt's medication regimen should include beta amaya, sacubitril/valsartan, spironolactone and SGLT2 inhibitor -BP improving to 120s-130s/80s, resume metoprolol XR today at 12.5 mg -Will add sacubitril/valsartan, spironolactone as BP tolerates -Pt does follow with [facility] cardiology -Currently euvolemic on exam, does not appear to be in CHF exacerbation (4) CAD (coronary artery disease): Plan: - Troponin mildly elevated 23.2 on admission, will repeat - No ACS symptoms at present, EKG negative for acute ST changes Troponin mildly elevated high-sensitivity on admission 23.2, likely demand ischemia Continue aspirin, continue atorvastatin 40 mg - Resume metoprolol XR at 12.5 mg today given improved BP and rising HR 90s (5) COPD (chronic obstructive pulmonary disease): Plan: Convert fluticasone, Anoro daily - Currently saturating well on 3L NC Incentive spirometry, flutter valve (6) Hyperlipidemia: Plan: - Continue atorvastatin 40 mg (7) Prediabetes: Plan: BSG 124 on admission A1C 6.1% (8) GERD (gastroesophageal reflux disease): Plan: Continue Protonix 40 mg PO daily while in hospital (9) AAA (abdominal aortic aneurysm) without rupture: Plan: Status post repair with Dr. Stark in 2014, yearly follow-up Plan Diet: Heart healthy DVT prophylaxis: Lovenox 40 m daily Code: DNR/DNI Dispo: Telemetry Admission and Anticipated Discharge Date Admission Date: June 23, 2022 Supervising Physician Co-Signing Physician Notes I also saw the patient confirmed eisenberg portions of the history and physical examination. Agree with the impression and plan as noted in the resident documentation. He has no new complaints today. Upon exam, the patient is out of bed in the bedside chair. Exam 125/74, 100, 26, 37, 93% on nasal cannula 3 L/min Heart sounds are distant but regular Nonlabored respirations Data Hemoglobin 10.6, platelet count 288. Sodium 138, potassium 4.1, BUN 17, creatinine 0.92 Assessment and Plan Acute CVA Pulmonary consolidation with lymphadenopathy concerning for pulmonary malignancy Heart failure with reduced ejection fraction, new Neurologic deficits continue to improve Neurology consultation appreciated PT/OT Resume Toprol today Consider addition of valsartan tomorrow Await pathology with regards to his lung mass Additional per resident documentation Subjective No acute events overnight. Pt reports feeling well, denies headache, dyspnea, weakness, numbness. Does report some mild productive cough but no respiratory distress. Aware of his potential lung malignancy diagnosis. Review of Systems Review of Systems: Per subjective Physical Exam Physical Exam: General: Alert, no acute distress HEENT: PERRLA, EOMI, moist mucous membranes Cardiovascular: RRR, normal S1 and S2 Resp: good inspiratory effort b/l, faint expiratory wheezes R > L, no crackles, no increased work of breathing Abd: soft, nontender, nondistended Neuro: 4/5 strength of LLE, 4/5 strength in R UE, no other focal motor or sensory deficits, speech clear and not slurred, no pronator drift Results & Data Results & Data ([facility]) Vital Signs (Past 12 Hours) Vital Signs Pulse Resp BP Pulse Ox O2 Del Method O2 Flow Rate 06/26/22 06:00 95 H 36 H 132/68 92 06/26/22 04:00 101 H 24 133/84 92 06/26/22 02:01 89 24 133/80 96 06/26/22 00:01 94 H 27 H 121/69 94 06/25/22 22:00 95 H 33 H 132/83 93 06/25/22 21:22 93 H 30 H 125/80 91 06/25/22 23:25 93 H 06/25/22 21:00 96 H 25 H 94 06/25/22 20:00 100 H 24 125/80 92 06/25/22 19:00 90 23 95 06/25/22 21:24 Nasal Cannula 3 Resident Activity Tracking Resident Involvement: Resident Care Provided Care Provided: Adult Hospital Medicine
--- NOTE | 2022-06-26 07:54 | Pulmonology Progress Note ---
Date of Service June 26, 2022 Assessment & Plan (1) Abnormal CT scan of lung: (2) COPD (chronic obstructive pulmonary disease): (3) Hypoxemia: Plan Impression: 77-year-old male with history of tobacco abuse admitted with strokelike symptoms status post thrombolytic administration. MRI confirms parietal stroke. His neurological deficits are improving. He was incidentally found to have mediastinal adenopathy. EBUS performed 06/25/2022 with preliminary findings concerning for malignancy. Final path pending. He is doing well clinically. Recommendations: 1. COPD: Evidence on CT scan. The patient is not bronchospastic currently. Outpatient PFTs may be considered. As needed bronchodilators for coughing or wheezing but currently now he is relatively asymptomatic. 2. Hypoxemia: Continue to wean oxygen as tolerated. Target oxygen saturations greater than or equal to 88%. 3. Probable lung cancer: Await final path. We will present at the [facility] cancer conference today. MRI of the brain findings are concerning and will need to be delineated further. If the MRI of the brain is felt to be a benign finding, the patient may have limited stage disease which would make him eligible for concurrent chemoradiation therapy. If the brain lesion is felt to be a metastatic deposits, SBRT to the brain might be warranted. We will discuss with hematology oncology if additional staging is required at this point in time. Outpatient PET scanning will likely be required. The above recommendations and plan were again discussed with the patient. I discussed the diagnosis with his and son at bedside yesterday. The patient is appropriately struggling with multiple new diagnoses including his stroke, heart failure, and new lung cancer diagnosis. Admission and Anticipated Discharge Date Admission Date: June 23, 2022 Subjective Patient seen and examined. EMR reviewed. Discussed with bedside nurse. The patient is doing well. He continues to have some difficulty with word finding and speech. He is tolerating a diet. He is working with PT and OT. A pulmonary perspective, the patient did have some mild cough. He is producing small amounts of clear phlegm. No hemoptysis. No chest pain palpitations or shortness of breath. Review of Systems Review of Systems: All systems reviewed & are unremarkable except as noted in Subjective Physical Exam Constitutional: WD/WN, vitals as above Neck: trachea midline, no thyromegaly Respiratory: normal respiratory effort, lungs clear to auscultation Cardiovascular: RRR, no murmur, no edema Gastrointestinal (Abdomen): normal bowel sounds, soft, nontender, no hepatosplenomegaly Musculoskeletal: Extremities: extremities normal to inspection Skin: no rashes, warm and dry Neurologic: Nonfocal exam Lymphatic: no cervical lymphadenopathy Results & Data Results & Data ([facility]) Vital Signs (Past 12 Hours) Vital Signs Pulse Resp BP Pulse Ox O2 Del Method O2 Flow Rate 06/26/22 06:00 95 H 36 H 132/68 92 06/26/22 04:00 101 H 24 133/84 92 06/26/22 02:01 89 24 133/80 96 06/26/22 00:01 94 H 27 H 121/69 94 06/25/22 22:00 95 H 33 H 132/83 93 06/25/22 21:22 93 H 30 H 125/80 91 06/25/22 23:25 93 H 06/25/22 21:00 96 H 25 H 94 06/25/22 20:00 100 H 24 125/80 92 06/25/22 21:24 Nasal Cannula 3 Laboratory Results 06/26/22 05:00 06/26/22 05:00 Diagnostic Findings No new films PG Care Time/CCT Total # of Minutes Spent Total Time Spent with Patient: Total time spent is greater than 50% in coordination of care (as documented) at patient's floor/unit and/or counseling patient: Coding Level of Care Code 45223 Subseq Hosp Care Lvl [address] scan of lung R91.8 COPD (chronic obstructive pulmonary disease) J44.9 Hypoxemia R09.02
[2022-06-26] MEDS: ATORVASTATIN 40 MG TAB PO SCH (09:05)
[2022-06-26] MEDS: PANTOprazole 40 MG TAB PO SCH (09:05)
[2022-06-26] MEDS: FLUTICASONE FUROATE 100MCG 14 PUFFS/INHALER INH SCH (09:05)
[2022-06-26] MEDS: ENOXAPARIN INJ 40 MG/0.4 ML SYR SQ SCH (09:05)
[2022-06-26] MEDS: ASPIRIN 81 MG ECTAB PO SCH (09:05)
[2022-06-26] MEDS: UMECLIDINIUM/VILANTEROL 62.5/25MCG 7 PUFFS/INHALER INH SCH (09:06)
[2022-06-26] MEDS: METOPROLOL SUCC 25MG EXT REL TAB PO SCH (10:52)
[2022-06-26] MEDS ORDERED: PANTOprazole 40 MG in SYRINGE 0 ML IV SCH (11:00)
[2022-06-26] MEDS: PROMETHAZINE HCL 12.5 MG in SODIUM CHLORIDE 0.9% 50 ML IV PRN (13:20)
--- NOTE | 2022-06-26 15:45 | Radiation OncologyConsultation ---
Date of Consultation June 26, 2022 Assessment & Plan (1) Small cell lung cancer: Plan Assessment: Mr. 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 The patient is currently admitted to the hospital as he is recovering from the stroke. The patient did undergo a bronchoscopy with EBUS FNA on 06/25/[address] Hoffman which did confirm small cell carcinoma. Dr. Hoffman did have the patient's case discussed at multidisciplinary tumor board today and the recommendation was for completion of the staging work-up including inpatient CT of abdomen/pelvis and outpatient PET/CT scan. If all scans are negative, the recommendation was to proceed with definitive chemotherapy and radiation therapy. I am now seeing the patient in consultation to discuss the role of radiation therapy. Recommendation: Complete the inpatient and outpatient staging work-up. If all scans are negative, plan to proceed with definitive chemotherapy and radiation therapy. Plan: 1. CT of abdomen/pelvis ordered inpatient. PET/CT scan should be ordered in the outpatient setting. 2. Patient will be seen in outpatient setting after staging scans all complete. Patient should be scheduled tentatively for same-day CT simulation for treatment planning to expedite treatment planning. 3. Medical oncology input appreciated in the outpatient or inpatient setting. 4. Continue follow-up with pulmonary medicine. 5. Continue follow-up with neurology regarding stroke. MRI brain should be re peated to rule out metastatic disease. 6. Patient and family encouraged to call us with any further questions or concerns. Discussion: I have explained the indications, alternatives, benefits, risks and side effects of radiation therapy. I have explained the most common side effects which include but are not limited to skin erythema, skin break down, pulmonary fibrosis, adhesion development, radiation pneumonitis, spinal cord damage, brachial plexus damage, rib fracture, heart failure and heart disease, esophagitis, development of fistula, fatigue and development of secondary malignancy. I have explained the CT simulation process and treatment planning. I explained what to expect before, during and after treatment on a regular basis. The patient had multiple questions which were answered to his full satisfaction. Thank you for allowing us to participate in the care of this patient. This chart was completed in part utilizing [employer] Voice Recognition software. Attempts were made to minimize the grammatical errors, random word insertions, pronoun errors and incomplete sentences. Any formal questions or concerns about the content, text or information contained within the body of this dictation should be directly addressed to the provider for clarification. Lazaro Rodriguez MD Department of Radiation Oncology [facility] History of Present Illness Attending Physician: Donny Guaman DO History of Present Illness 06/23/2022. Patient presents with strokelike symptoms including right upper extremity weakness and expressive aphasia. 06/23/2022. CT head. Impression: 1. No acute intracranial abnormality. 2. 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 06/23/2022. CTA head. IMPRESSION: 1. No significant stenosis, occlusion, or aneurysm within the [place] of [place]. 2. No significant stenosis, occlusion, or dissection identified within the carotid or vertebral arteries. 3. Mild mediastinal and bilateral supraclavicular lymphadenopathy. There are also bilateral parotid gland nodules/lymph nodes as described above. Findings are concerning for a neoplastic process such as lymphoma. 4. There is also mild asymmetric nodular thickening within the right lung apex with questionable subtle erosive changes within the right posterior second rib. This could also be due to an underlying neoplastic process. Therefore, follow-up nonemergent oncology consultation and PET CT is recommended for further evaluation of these findings. 06/25/2022. CT chest. IMPRESSION: 1. Small right and trace left pleural effusion with underlying atelectasis. 2. Consolidation in the right upper lobe with bronchial wall thickening. Right hilar and mediastinal lymphadenopathy may be reactive. Follow-up to resolution is recommended. 3. Emphysema. A right upper lobe underlying mass with malignant effusion is also a strong consideration. No evidence of bony erosion is seen. 06/25/2022. MRI brain. IMPRESSION: 1. Confirmation of the acute infarct within the left parietal and posterior left temporal lobes extending into the posterior aspect of the left insular cortex. 2. Additional 1.1 cm acute or subacute infarct within the inferior right cerebellum. 3. There is an indeterminate intra-axial subcortical 1.1 cm cystic lesion within the right occipital lobe which appears to follow CSF on all sequences and demonstrates mild peripheral increased FLAIR signal. A 6 month follow-up brain MRI with and without IV contrast is recommended. 06/25/2022. Bronchoscopy with EBUS FNA by Dr. Hoffman. Impression: 1. Abnormal inspection bronchoscopy with narrowing of right upper lobe and mucosal abnormalities from RC1 extending into the right middle lobe and bronchus intermedius. 2. Pathologic adenopathy identified within 2R, 4R, and 10 R stations. Status post endobronchial ultrasound transbronchial needle aspiration. Await final path. 06/25/2022. Lymph node, 2R, endobronchial ultrasound fine needle aspiration: - Metastatic small cell carcinoma. Allergies Allergy/AdvReac Type Severity Reaction Status Date / Time No Known Allergies Allergy Unverified 02/08/22 10:06 Home Medications Medication Instructions Recorded Confirmed Type aspirin 81 mg tablet 81 mg PO DAILY #30 tabs 07/06/19 02/08/22 History multivitamin 1 tab PO DAILY 07/06/19 02/08/22 History vit C,E,zinc,copper-gdodc1f 250 1 cap PO DAILY 07/06/19 02/08/22 History mg-lutein 5 mg-zeaxanthin 1 mg capsule (Ocuvite Adult 50 Plus) ibuprofen 600 mg tablet 1,200 mg PO QID PRN pain 02/08/22 02/08/22 History atorvastatin 40 mg tablet 40 mg PO DAILY #90 tabs 03/20/22 Rx fluticasone fur. 100 mcg-umeclid 1 inh inhalation DAILY #90 ea 03/20/22 Rx 62.5 mcg-vilant 25 mcg inhalat.powder (Trelegy Ellipta) metoprolol succinate 25 mg 25 mg PO DAILY #90 tabs 03/20/22 Rx tablet,extended release 24 hr omeprazole 20 mg capsule,delayed 20 mg PO DAILY #90 caps 03/20/22 Rx release albuterol sulfate 90 mcg/actuation See Rx Instructions inhalation QID 05/07/22 Rx aerosol inhaler PRN shortness of breath or wheezing #18 grams Patient History Medical History (Updated 06/26/22 @ 15:32 by Lazaro Rodriguez MD) Abnormal stress echo Small cell lung cancer Surgical History History of AAA (abdominal aortic aneurysm) repair History of cataract surgery History of pacemaker S/P ICD (internal cardiac defibrillator) procedure Family History Father Emphysema of lung Mother Lupus Sister Diabetes Denies family history of Ovarian cancer Prostate cancer Myocardial infarction Breast cancer Colorectal cancer Social History Smoking Status: Former smoker Age Started Using Tobacco: 16; Age Quit Using Tobacco: 71; packs per day: 1; Second Hand Exposure: No; Hx Alcohol Use: Yes Alcohol type: beer Hx Substance Use: No Preferred Language: Divehi Communication Ability: Effective Hearing Ability: Use of Hearing Aid Fret Saw Operator Required: No Beliefs That Will Affect Care: None marital status: Current Living Situation: Spouse and Family current occupational status: retired How many Children do You have: 2 Feels Safe at Home: Yes Childhood Exposure to Second-Hand Smoke: Yes caffeine: Yes Dental Care, Regularly: Yes Physical Activity Frequency: Daily Physical Activity Frequency Comment: Walking Seatbelt Use: always Sunscreen Use: Yes Assistive Devices: None Review of Systems Review of Systems: All systems reviewed & are unremarkable except as noted in HPI & below Patient continues to have some shortness of breath and cough. Patient states his neurologic symptoms are improving. Physical Exam Constitutional: WD/WN, vitals as above Respiratory: + dullness to percussion Auscultation: + diminished lung sounds, + crackles, + rhonchi and + wheezes Psychiatric: A+Ox3, euthymic affect
[2022-06-26] MEDS ORDERED: OPTIRAY 320 100ml IV ONE (16:18)
--- NOTE | 2022-06-26 17:17 | CT Scan Report ---
CT OF THE ABDOMEN AND PELVIS WITH CONTRAST CLINICAL HISTORY: Lung cancer staging. COMPARISON STUDY: CTA of the abdomen and pelvis December 26, 2015. TECHNIQUE: Following IV administration of 95 mL of Optiray, axial images of the abdomen and pelvis we re obtained from the lung bases to the proximal femurs. Images were reviewed in the axial, sagittal, and coronal planes. IV contrast was administered without complication. Automated exposure control wa s utilized for the study. A dose lowering technique was utilized adhering to the principles of ALARA . Oral contrast was administered. CT DOSE: 387.99 mGycm FINDINGS: A small right pleural effusion is noted with subtotal right lower lobe airspace opacity. Mu ltiple enhancing right pleural nodules measure up to 1.4 cm. Pacer lead is partially imaged. There is a moderate-sized hiatal hernia. No pneumatosis, free air or portal venous gas is present. Subcentime ter lateral segment hepatic lesions were present on prior CT. These are benign. Several right adrenal nodules measuring up to 1.7 cm and are new since prior CT. Left adrenal gland, spleen and pancreas a re unremarkable. There is no biliary or pancreatic ductal dilatation. Mild gallbladder wall thickenin g is noted. Water attenuation renal lesions reflect cysts. A few lesions within the kidneys are too s mall to characterize. There are multiple enlarged aortocaval lymph nodes. Index node on image 131 of 406 measures 2.9 x 2.4 cm. This lymphadenopathy is new since prior CT. A 1.3 cm enhancing nodule supe rior to the left kidney is noted. Masslike thickening within the proximal sigmoid colon is noted. The re is a large amount of stool within the colon, particularly just upstream from this possible mass. T here is mild pericolonic stranding. No extraluminal gas is noted. Small pericolonic lymph nodes are n oted. No evidence for a small bowel obstruction. Bifurcated aortoiliac stent graft is in place. Aneur ysm sac measures 4.5 x 4.5 cm. This has minimally increased in size since prior exam. Possible small endoleak. No evidence for rupture. No suspicious lesions within the visualized skeletal structures. L evoscoliosis of the lumbar spine is incidentally noted. IMPRESSION: 1. Small right pleural effusion with multiple small enhancing right pleural nodules consistent with m alignant effusion. 2. Multiple pathologically enlarged aortocaval lymph nodes, new since CT of December 26, 2015. These a re consistent with a neoplastic process and suggestive of metastatic disease. 3. Several right adrenal nodules which are also new since prior CT and suspicious for metastases. 4. Mass-like thickening of the proximal sigmoid colon with large amount of stool and moderate colonic dilatation. A colonic neoplasm cannot be excluded on this exam with partial colonic obstruction and possible stercoral colitis. GI consultation is recommended for consideration for endoscopy. 5. Bifurcated aortoiliac stent graft in place. Slight increase in size of aneurysm sac. Possible smal l endoleak. No rupture. ACT 112: Negative or not required by law. Electronically signed by: Seven Dyer M.D. 06/26/2022 5:16 PM
[2022-06-26] MEDS ORDERED: CALCIUM CARBONATE 500 MG CHEWABLE TAB PO PRN (18:21)
[2022-06-27 08:13] LABS: Hematocrit (blood only) 36.7 % (40.1-51.0); Hemoglobin 12.2 g/dl (14.0-18.0); Mean Corpuscular Hemoglobin 26.3 pg (25.0-34.0); Mean Corpuscular Hgb Conc 33.2 g/dL (32.0-36.0); Mean Corpuscular Volume 79.1 fL (80.0-100.0); Mean Platelet Volume 9.5 fL (9.4-12.4); Platelet Count 326 K/uL (130-400); RDW Coefficient of Variation 17.4 % (11.5-14.5); RDW Standard Deviation 50.2 fL (36.4-46.3); Red Blood Count 4.64 M/uL (4.63-6.08); White Blood Count 8.34 K/ul (4.8-10.8)
[2022-06-27 08:38] LABS: Albumin Globulin Ratio 1.1 (0.9-2); Albumin Level 3.2 gm/dl (3.4-5.0); Calcium 8.5 mg/dl (8.5-10.1); Creatinine Clr Calc Pharmacy 80.4 ml/min; Est GFR (African American) 110.2 ml/min; Est GFR (Non-African American) 95.1 ml/min; Magnesium 1.7 mg/dl (1.7-2.4); Potassium 3.7 mmol/L (3.5-5.1); Total Protein 6.2 gm/dl (6.0-8.3)
--- NOTE | 2022-06-27 09:45 | Hospitalist Progress Note ---
Date of Service June 27, 2022 Assessment & Plan (1) Acute CVA (cerebrovascular accident): Plan: -Last known well at 8:20 AM on 06/24, symptoms included RUE weakness with dysarthria, ataxia -TNKase administered at 10:13 AM on 06/24, improvement in symptoms noted -CT Head- decreased attenuation of L parietal, possibly temporal lobe -MRI brain 06/25- acute L parietal + L posterior temporal lobe infarct, acute/subacute R inferior cerebellum infarct -Additional 1.1 cm cystic lesion of R occipital lobe- recommend 6 month f/u repeat MRI -Currently hemodynamically stable, BP improved, neurologic status improving -Continue aspirin, continue high-intensity statin -Neuro checks q4h (2) Pulmonary nodule 1 cm or greater in diameter: Plan: -Neck CTA on admission- asymmetric nodular mass of R lung apex concerning for potential malignancy -Also demonstrating mild mediastinal/supraclavicular/parotid b/l lymphadenopathy concerning for malignancy -CT chest 06/25- small b/l pleural effusions w/ atelectasis, R upper lobe consolidation with bronchial wall thickening -Recommend repeat CT t oevaluate resolution -Bronchoscopy performed 06/25- highly concerning for malignancy of R upper/middle lobe, aspirated and pathology report pending -DVT prophylaxis initiated on 06/25 due to cancer prothrombotic state- Lovenox 40 mg daily -Pulmonology consulted and following -Will likely require outpatient PET -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 -Radiation oncology consulted and following -CTAP 06/26 done for staging -R pleural effusion concerning for malignant effusion -Multiple R adrenal nodules new from prior CT suspicious for metastasis -Thickened sigmoid colon, possibly neoplasm vs fecal retention w/ stercoral colitis- recommend GI consult to evaluate need for endoscopy. GI consulted, Miralax BID -Respiratory status stable at 1L NC- may need home O2 on discharge- 2 step to be completed (3) Heart failure with reduced ejection fraction: Plan: -Echocardiogram 06/24- EF 30-35, moderate global LV hypokinesis, moderate/severe aortic stenosis -Echocardiogram 04/2021- EF 50-55% -Pt only on metoprolol XR 25 mg at home -Given HFrEF, pt's medication regimen should include beta amaya, sacubitril/valsartan, spironolactone and SGLT2 inhibitor -BP improving to 120s-130s/80s, resume metoprolol XR at 12.5 mg on 06/26 -Add valsartan 80 mg today as BP stable on metoprolol -Will add sacubitril, spironolactone as BP tolerates -Pt does [facility] with [facility] cardiology -Currently euvolemic on exam, does not appear to be in CHF exacerbation (4) CAD (coronary artery disease): Plan: - Troponin mildly elevated 23.2 on admission, will repeat - No ACS symptoms at present, EKG negative for acute ST changes Troponin mildly elevated high-sensitivity on admission 23.2, likely demand ischemia Continue aspirin, continue atorvastatin 40 mg - Continue metoprolol XR 12.5 mg daily (5) COPD (chronic obstructive pulmonary disease): Plan: Convert fluticasone, Anoro daily - Currently saturating well on 3L NC Incentive spirometry, flutter valve (6) Hyperlipidemia: Plan: - Continue atorvastatin 40 mg (7) Prediabetes: Plan: BSG 124 on admission A1C 6.1% (8) GERD (gastroesophageal reflux disease): Plan: Continue Protonix 40 mg PO daily while in hospital (9) AAA (abdominal aortic aneurysm) without rupture: Plan: Status post repair with Dr. Stark in 2014, yearly follow-up Plan Diet: Heart healthy DVT prophylaxis: Lovenox 40 m daily Code: DNR/DNI Dispo: Telemetry Admission and Anticipated Discharge Date Admission Date: June 23, 2022 Supervising Physician Co-Signing Physician Notes I also saw the patient confirmed eisenberg portions of the history and physical examination. Agree with the impression and plan as noted in the resident documentation. Patient is seen about lunchtime, at bedside. We discussed the findings of the abdominal CT scan and the possibility of a colonic mass. Exam 129/87, 94, 18, 36.6, 91% on nasal cannula at 1 L/min Heart sounds are distant but regular Nonlabored respirations Data Hemoglobin 12.2, platelet count 326 Sodium 136, testing 3.7, BUN 12, creatinine 0.63 CT scan of the abdomen pelvis dated 06/26/2022 shows a small right pleural effusion consistent with a malignant effusion, multiple pathologically enlarged aortocaval lymph nodes, several left adrenal nodules suspicious for metastatic disease, and masslike thickening of the proximal sigmoid colon with a large amount of stool and moderate colonic dilatation. Pathology from Saturday's endobronchial ultrasound FNA shows metastatic small cell carcinoma. Assessment and Plan Acute CVA Neurologic deficits continue to improve Neurology consultation appreciated PT/OT Metastatic small cell carcinoma, new Consult gastroenterology, unsure if this is a true colonic mass versus fecal retention, wall thickening/stercoral colitis Unfortunately, could also represent a second primary Heart failure with reduced ejection fraction, new Continue Toprol Add valsartan Additional per resident documentation Subjective No acute events overnight. Pt reports feeling well, denies headache, dyspnea, weakness, numbness. Cough has improved as well. Discussed lung cancer diagnosis with him and next steps. Review of Systems Review of Systems: Per subjective Physical Exam Physical Exam: General: Alert, no acute distress HEENT: PERRLA, EOMI, moist mucous membranes Cardiovascular: RRR, normal S1 and S2 Resp: good inspiratory effort b/l, faint expiratory wheezes R > L, no crackles, no increased work of breathing Abd: soft, nontender, nondistended Neuro: 4/5 strength of LLE, no other focal motor or sensory deficits, speech clear and not slurred, no pronator drift Results & Data Results & Data ([facility]) Vital Signs (Past 12 Hours) Vital Signs Temp Pulse Pulse Resp BP Pulse Ox O2 Del Method 06/27/22 07:00 86 06/27/22 07:18 36.5 C 64 18 122/76 90 Nasal Cannula 06/27/22 03:34 36.3 C L 100 H 18 112/75 92 Nasal Cannula 06/26/22 22:30 90 06/26/22 22:31 36.5 C 92 H 18 135/96 92 Room Air O2 Flow Rate 06/27/22 07:00 06/27/22 07:18 1 06/27/22 03:34 3 06/26/22 22:30 06/26/22 22:31 Resident Activity Tracking Resident Involvement: Resident Care Provided Care Provided: Adult Hospital Medicine
[2022-06-27] MEDS: FLUTICASONE FUROATE 100MCG 14 PUFFS/INHALER INH SCH (10:59)
[2022-06-27] MEDS: UMECLIDINIUM/VILANTEROL 62.5/25MCG 7 PUFFS/INHALER INH SCH (10:59)
[2022-06-27] MEDS: ASPIRIN 81 MG ECTAB PO SCH (10:59)
[2022-06-27] MEDS: METOPROLOL SUCC 25MG EXT REL TAB PO SCH (10:59)
[2022-06-27] MEDS: PANTOprazole 40 MG TAB PO SCH (10:59)
[2022-06-27] MEDS: ATORVASTATIN 40 MG TAB PO SCH (10:59)
[2022-06-27] MEDS: ENOXAPARIN INJ 40 MG/0.4 ML SYR SQ SCH (12:32)
[2022-06-27] MEDS: POLYETHYLENE (MIRALAX) 17 GM PACK PO SCH ×2 (12:34→21:35)
[2022-06-27] MEDS ORDERED: LAVAGE SOLUTION 4000ML PO SCH (17:00)
[2022-06-28 07:16] LABS: Hematocrit (blood only) 35.7 % (40.1-51.0); Hemoglobin 11.4 g/dl (14.0-18.0); Mean Corpuscular Hemoglobin 25.8 pg (25.0-34.0); Mean Corpuscular Hgb Conc 31.9 g/dL (32.0-36.0); Mean Corpuscular Volume 80.8 fL (80.0-100.0); Mean Platelet Volume 9.5 fL (9.4-12.4); Platelet Count 329 K/uL (130-400); RDW Coefficient of Variation 17.2 % (11.5-14.5); RDW Standard Deviation 50.4 fL (36.4-46.3); Red Blood Count 4.42 M/uL (4.63-6.08); White Blood Count 7.15 K/ul (4.8-10.8)
[2022-06-28 07:42] LABS: Albumin Globulin Ratio 1.1 (0.9-2); Albumin Level 2.9 gm/dl (3.4-5.0); BUN Creatinine Ratio 21.3 (10-20); Bilirubin,Total 1.1 mg/dl (0.2-1.0); Calcium 8.1 mg/dl (8.5-10.1); Creatinine Clr Calc Pharmacy 83.8 ml/min; Est GFR (African American) 111.6 ml/min; Est GFR (Non-African American) 96.3 ml/min; Globulin 2.7 gm/dl (2.5-4.0); Magnesium 1.7 mg/dl (1.7-2.4); Potassium 3.4 mmol/L (3.5-5.1); Total Protein 5.6 gm/dl (6.0-8.3)
[2022-06-28] MEDS ORDERED: VALSARTAN 80 MG TAB PO SCH (09:00)
--- NOTE | 2022-06-28 09:28 | Gastrointestinal Consultation ---
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 He is following with oncology and he is planned for outpatient PET CT and most likely chemo/radiation. GI is being asked to see the patient due to concern for possible colon cancer vs fecal material seen on imaging. he is also complaining of poor appetite over several months with early satiety. - we discussed having an egd as well as colonoscopy to further evaluate his symptoms as well as the abnormal imaging, but he tells me he is not sure he wants to proceed with this. We discussed that by not doing testing that things like masses or cancers or metastasis can be missed and he voiced understanding of this but at this time he does not want any invasive GI procedures. He tells me he would consider as an outpatient. - He had KUB ordered this morning but results are pending, will await results. - continue to follow with oncology. - He tells me he would like to be discharged to home and if he ultimately decides he would like to have procedures done that he would address as an outpatient. Supervising Physician Co-Signing Physician Notes I personally evaluated the patient and agree with the findings as documented by Gary Ku, MARYCARMEN Exam: Constitutional: WD/WN, vitals as above General: EOM intact bilaterally Neck: normal visual inspection Respiratory: normal respiratory effort, lungs clear to auscultation Cardiovascular: RRR, no murmur, no edema Gastrointestinal: abdomennormal to inspection, nondistended, soft, nontender, no hepatosplenomegaly Musculoskeletal: no cyanosis, head normal to inspection Skin: no rashes, warm and dry Neurologic: moves all extremities Psychiatric: A and O x3, euthymic affect proceed with flex sig risks/benefits and procedure discussed with patient, who agrees to proceed History of Present Illness Reason for Consultation: possible colon cancer Requesting Physician: Dr. 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 He is following with oncology and he is planned for outpatient PET CT and most likely chemo/radiation. GI is being asked to see the patient due to concern for possible colon cancer vs fecal material seen on imaging. He was given a bowel prep yesterday but admits he only took about 30% of this and decided he did not want to take any more. He tells me he has no desire to have a colonoscopy. He tells me he did move his bowels several times with the prep he took. denied any blood in stool or melena. He tells me he has had colonoscopy in the past with the last one being about 7 years ago. He tells me he followed with Dr. Hawkins in the past. He did have polyps but he is not sure of what kind. He admits to some poor appetite over the past 2 months. Finds he cannot eat as much as he used to and would have to come back to finish meals later. He has some heartburn but admits otc bienvenido seldavnoer seems to control this. He has never had an egd. He denies any nausea, vomiting, dysphagia, abdominal pain, change in bowels, unintentional weight loss. Allergies Allergy/AdvReac Type Severity Reaction Status Date / Time No Known Allergies Allergy Unverified 02/08/22 10:06 Home Medications Medication Instructions Recorded Confirmed Type aspirin 81 mg tablet 81 mg PO DAILY #30 tabs 07/06/19 02/08/22 History multivitamin 1 tab PO DAILY 07/06/19 02/08/22 History vit C,E,zinc,copper-owomv4i 250 1 cap PO DAILY 07/06/19 02/08/22 History mg-lutein 5 mg-zeaxanthin 1 mg capsule (Ocuvite Adult 50 Plus) ibuprofen 600 mg tablet 1,200 mg PO QID PRN pain 02/08/22 02/08/22 History atorvastatin 40 mg tablet 40 mg PO DAILY #90 tabs 03/20/22 Rx fluticasone fur. 100 mcg-umeclid 1 inh inhalation DAILY #90 ea 03/20/22 Rx 62.5 mcg-vilant 25 mcg inhalat.powder (Trelegy Ellipta) metoprolol succinate 25 mg 25 mg PO DAILY #90 tabs 03/20/22 Rx tablet,extended release 24 hr omeprazole 20 mg capsule,delayed 20 mg PO DAILY #90 caps 03/20/22 Rx release albuterol sulfate 90 mcg/actuation See Rx Instructions inhalation QID 05/07/22 Rx aerosol inhaler PRN shortness of breath or wheezing #18 grams Patient History Medical History Abnormal stress echo Small cell lung cancer Surgical History History of AAA (abdominal aortic aneurysm) repair History of cataract surgery History of pacemaker S/P ICD (internal cardiac defibrillator) procedure Family History Father Emphysema of lung Mother Lupus Sister Diabetes Denies family history of Ovarian cancer Prostate cancer Myocardial infarction Breast cancer Colorectal cancer Social History Smoking Status: Former smoker Age Started Using Tobacco: 16; Age Quit Using Tobacco: 71; packs per day: 1; Second Hand Exposure: No; Hx Alcohol Use: Yes Alcohol type: beer Hx Substance Use: No Preferred Language: Ivorian Communication Ability: Effective Hearing Ability: Use of Hearing Aid Drafter Cartographic Required: No Beliefs That Will Affect Care: None marital status: Current Living Situation: Spouse and Family current occupational status: retired How many Children do You have: 2 Feels Safe at Home: Yes Childhood Exposure to Second-Hand Smoke: Yes caffeine: Yes Dental Care, Regularly: Yes Physical Activity Frequency: Daily Physical Activity Frequency Comment: Walking Seatbelt Use: always Sunscreen Use: Yes Assistive Devices: None Review of Systems Review of Systems: All systems reviewed & are unremarkable except as noted in HPI & below Neurologic: + generalized weakness Physical Exam Constitutional: WD/WN, vitals as above Eyes: + anicteric sclerae and PERRL ENMT: external ear and nose normal, oropharynx normal Respiratory: normal respiratory effort, lungs clear to auscultation Cardiovascular: RRR, no murmur, no edema Gastrointestinal (Abdomen): normal bowel sounds, soft, nontender, no hepatosplenomegaly Skin: no rashes, warm and dry Psychiatric: A+Ox3, euthymic affect Results & Data ([facility]) Vital Signs (Past 12 Hours) Vital Signs Temp Pulse Pulse Resp BP Pulse Ox O2 Del Method 06/28/22 07:30 36.4 C L 85 18 125/78 93 Nasal Cannula 06/28/22 07:00 94 H 06/28/22 03:19 36.5 C 88 20 120/75 95 Nasal Cannula 06/27/22 22:55 36.8 C 101 H 20 125/73 91 Nasal Cannula 06/27/22 22:30 97 H O2 Flow Rate 06/28/22 07:30 2 06/28/22 07:00 06/28/22 03:19 2.0 06/27/22 22:55 3.0 06/27/22 22:[address] OF THE ABDOMEN AND PELVIS WITH CONTRAST CLINICAL HISTORY: Lung cancer staging. COMPARISON STUDY: CTA of the abdomen and pelvis December 26, 2015. TECHNIQUE: Following IV administration of 95 mL of Optiray, axial images of the abdomen and pelvis were obtained from the lung bases to the proximal femurs. Images were reviewed in the axial, sagittal, and coronal planes. IV contrast was administered without complication. Automated exposure control was utilized for the study. A dose lowering technique was utilized adhering to the principles of ALARA. Oral contrast was administered. CT DOSE: 387.99 mGycm FINDINGS: A small right pleural effusion is noted with subtotal right lower lobe airspace opacity. Multiple enhancing right pleural nodules measure up to 1.4 cm. Pacer lead is partially imaged. There is a moderate-sized hiatal hernia. No pneumatosis, free air or portal venous gas is present. Subcentimeter lateral segment hepatic lesions were present on prior CT. These are benign. Several right adrenal nodules measuring up to 1.7 cm and are new since prior CT. Left adrenal gland, spleen and pancreas are unremarkable. There is no biliary or pancreatic ductal dilatation. Mild gallbladder wall thickening is noted. Water attenuation renal lesions reflect cysts. A few lesions within the kidneys are too small to characterize. There are multiple enlarged aortocaval lymph nodes. Index node on image 131 of 406 measures 2.9 x 2.4 cm. This lymphadenopathy is new since prior CT. A 1.3 cm enhancing nodule superior to the left kidney is noted. Masslike thickening within the proximal sigmoid colon is noted. There is a large amount of stool within the colon, particularly just upstream from this possible mass. There is mild pericolonic stranding. No extraluminal gas is noted. Small pericolonic lymph nodes are noted. No evidence for a small bowel obstruction. Bifurcated aortoiliac stent graft is in place. Aneurysm sac measures 4.5 x 4.5 cm. This has minimally increased in size since prior exam. Possible small endoleak. No evidence for rupture. No suspicious lesions within the visualized skeletal structures. Levoscoliosis of the lumbar spine is incidentally noted. IMPRESSION: 1. Small right pleural effusion with multiple small enhancing right pleural nodules consistent with malignant effusion. 2. Multiple pathologically enlarged aortocaval lymph nodes, new since CT of December 26, 2015. These are consistent with a neoplastic process and suggestive of metastatic disease. 3. Several right adrenal nodules which are also new since prior CT and suspicious for metastases. 4. Mass-like thickening of the proximal sigmoid colon with large amount of stool and moderate colonic dilatation. A colonic neoplasm cannot be excluded on this exam with partial colonic obstruction and possible stercoral colitis. GI consultation is recommended for consideration for endoscopy. 5. Bifurcated aortoiliac stent graft in place. Slight increase in size of aneurysm sac. Possible small endoleak. No rupture. PG Care Time/CCT Total # of Minutes Spent Total Time Spent with Patient: Total time spent is greater than 50% in coordination of care (as documented) at patient's floor/unit and/or counseling patient: Coding Level of Care Code 88836 Initial Inpt Care Lvl [address] scan R93.5
[2022-06-28] MEDS ORDERED: POTASSIUM CHLORIDE CRTAB 20 MEQ TABCR PO STA (09:32)
[2022-06-28] MEDS: ASPIRIN 81 MG ECTAB PO SCH (09:40)
[2022-06-28] MEDS: VALSARTAN 80 MG TAB PO SCH (09:40)
[2022-06-28] MEDS: ATORVASTATIN 40 MG TAB PO SCH (09:41)
[2022-06-28] MEDS: PANTOprazole 40 MG TAB PO SCH (09:41)
[2022-06-28] MEDS: METOPROLOL SUCC 25MG EXT REL TAB PO SCH (09:41)
[2022-06-28] MEDS: UMECLIDINIUM/VILANTEROL 62.5/25MCG 7 PUFFS/INHALER INH SCH (09:41)
[2022-06-28] MEDS: FLUTICASONE FUROATE 100MCG 14 PUFFS/INHALER INH SCH (09:42)
--- NOTE | 2022-06-28 10:32 | XRay Report ---
KUB CLINICAL HISTORY: stool burden COMPARISON STUDY: CT of the abdomen and pelvis June 26, 2022. FINDINGS: Pacer/AICD leads are noted as well as a bifurcated aortoiliac stent graft. Levoscoliosis of the lumbar spine. Bowel gas pattern is normal. Moderate amount of stool is noted. This has decreased since prior exam of June 26, 2022. IMPRESSION: 1. No evidence for a bowel obstruction. 2. Interval decrease in stool within the colon and rectum. Moderate residual stool. ACT 112: Negative or not required by law. Electronically signed by: Seven Dyer M.D. 06/28/2022 10:30 AM
[2022-06-28] MEDS: ENOXAPARIN INJ 40 MG/0.4 ML SYR SQ SCH (11:02)
[2022-06-28] MEDS: POLYETHYLENE (MIRALAX) 17 GM PACK PO SCH ×2 (11:03→20:38)
--- NOTE | 2022-06-28 11:43 | Hospitalist Progress Note ---
Date of Service June 28, 2022 Assessment & Plan (1) Pulmonary nodule 1 cm or greater in diameter: Plan: -Neck CTA on admission- asymmetric nodular mass of R lung apex concerning for potential malignancy -Also demonstrating mild mediastinal/supraclavicular/parotid b/l lymphadenopathy concerning for malignancy -CT chest 06/25- small b/l pleural effusions w/ atelectasis, R upper lobe consolidation with bronchial wall thickening -Recommend repeat CT t oevaluate resolution -Bronchoscopy performed 06/25- highly concerning for malignancy of R upper/middle lobe, aspirated -DVT prophylaxis initiated on 06/25 due to cancer prothrombotic state- Lovenox 40 mg daily -Pulmonology consulted and following -Will likely require outpatient PET -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 -Radiation oncology consulted and following -CTAP 06/26 done for staging -R pleural effusion concerning for malignant effusion -Multiple aortocaval lymph nodes -Multiple R adrenal nodules new from prior CT suspicious for metastasis -Thickened mass of proximal sigmoid colon, possibly neoplasm vs fecal retention w/ stercoral colitis -Respiratory status stable at 2L NC- may need home O2 on discharge- 2 step to be completed (2) Mass of colon: Plan: -CTAP findings as above with proximal sigmoid colon mass -Potential malignancy (unclear whether metastatic or primary) vs fecal retention with stercoral colitis -GI consulted 06/28 -Bowel prep completed for endoscopy to evaluate mass, pt NPO -Will attempt to get endoscopy completed this hospitalization- hopefully today, otherwise may be done outpatient -KUB 06/28- moderate fecal retention, improved from previous bowel imaging -Continue Miralax BID (3) Acute CVA (cerebrovascular accident): Plan: -Last known well at 8:20 AM on 06/24, symptoms included RUE weakness with dysarthria, ataxia -TNKase administered at 10:13 AM on 06/24, improvement in symptoms noted -CT Head- decreased attenuation of L parietal, possibly temporal lobe -MRI brain 06/25- acute L parietal + L posterior temporal lobe infarct, acute/subacute R inferior cerebellum infarct -Additional 1.1 cm cystic lesion of R occipital lobe- recommend 6 month f/u repeat MRI -Currently hemodynamically stable, BP improved, neurologic status improving -Continue aspirin, continue high-intensity statin -Neuro checks q4h (4) Heart failure with reduced ejection fraction: Plan: -Echocardiogram 06/24- EF 30-35, moderate global LV hypokinesis, moderate/severe aortic stenosis -Echocardiogram 04/2021- EF 50-55% -Pt only on metoprolol XR 25 mg at home -Given HFrEF, pt's medication regimen should include beta amaya, sacubitril/valsartan, spironolactone and SGLT2 inhibitor -BP improving to 120s-130s/80s, resume metoprolol XR at 12.5 mg on 06/26 -Added valsartan 40 mg on 06/27, continue at this dose -Will add sacubitril, spironolactone as BP tolerates -Pt does follow with [facility] cardiology -Currently euvolemic on exam, does not appear to be in CHF exacerbation (5) CAD (coronary artery disease): Plan: - Troponin mildly elevated 23.2 on admission, will repeat - No ACS symptoms at present, EKG negative for acute ST changes Troponin mildly elevated high-sensitivity on admission 23.2, likely demand ischemia Continue aspirin, continue atorvastatin 40 mg - Continue metoprolol XR 12.5 mg daily (6) COPD (chronic obstructive pulmonary disease): Plan: Convert fluticasone, Anoro daily - Currently saturating well on 3L NC Incentive spirometry, flutter valve (7) Hyperlipidemia: Plan: - Continue atorvastatin 40 mg (8) Prediabetes: Plan: BSG 124 on admission A1C 6.1% (9) GERD (gastroesophageal reflux disease): Plan: Continue Protonix 40 mg PO daily while in hospital (10) AAA (abdominal aortic aneurysm) without rupture: Plan: Status post repair with Dr. Stark in 2014, yearly follow-up Plan Diet: Heart healthy DVT prophylaxis: Lovenox 40 m daily Code: DNR/DNI Dispo: Telemetry Admission and Anticipated Discharge Date Admission Date: June 23, 2022 Supervising Physician Co-Signing Physician Notes I also saw the patient confirmed eisenberg portions of the history and physical examination. Agree with the impression and plan as noted in the resident documentation. The patient apparently completed some of his prepnot clear if he completed all the prepbut in any event he decided he did not want to follow through with the colonoscopy today as planned. We discussed the need to evaluate the findings in the CT scanand how these findings would ultimately affect treatment possibilities for his pulmonary malignancy. He did reconsider and eventually underwent a sigmoidoscopy which was able to reach the area of concernidentified was an infiltrative partially obstructing medium-sized mass, biopsies were taken. Exam 103/67, 104, 18, 36.3, 91% via nasal cannula, 4 L/min Heart sounds are distant but regular Nonlabored respirations Data Hemoglobin 11.4, platelet count 329 Sodium 136, potassium 3.4, BUN 13, creatinine 0.61 Assessment and Plan Acute CVA Neurologic deficits continue to improve Neurology consultation appreciated PT/OT Metastatic small cell carcinoma, new Sigmoid colonic mass, status post biopsy Await pathology of colonic mass Will need outpatient follow-up with oncology Heart failure with reduced ejection fraction, new Continue Toprol Add valsartan, ultimately consider Entresto Hemodynamics today may be little misleading given the colonoscopy prep Additional per resident documentation Subjective No acute events overnight. Pt reports feeling well overall, denies headache, dyspnea, weakness, numbness. Denies any abdominal symptoms. He is eager to eat. He was initially resistant to endoscopy but agreed to have it done in hospital for purpose of evaluating potential cancerous mass after I explained to him he will need to repeat bowel prep again if pursuing this outpatient. Review of Systems Review of Systems: Per subjective Physical Exam Physical Exam: General: Alert, no acute distress HEENT: PERRLA, EOMI, moist mucous membranes Cardiovascular: RRR, normal S1 and S2 Resp: good inspiratory effort b/l, faint expiratory wheezes R > L, no crackles, no increased work of breathing Abd: soft, nontender, nondistended Neuro: 4/5 strength of RLE, no other focal motor or sensory deficits, speech clear and not slurred, no pronator drift Results & Data Results & Data ([facility]) Vital Signs (Past 12 Hours) Vital Signs Temp Pulse Pulse Resp BP Pulse Ox O2 Del Method 06/28/22 11:00 36.4 C L 80 18 127/83 93 Nasal Cannula 06/28/22 08:00 Nasal Cannula 06/28/22 09:37 87 122/86 06/28/22 07:30 36.4 C L 85 18 125/78 93 Nasal Cannula 06/28/22 07:00 94 H 06/28/22 03:19 36.5 C 88 20 120/75 95 Nasal Cannula O2 Flow Rate 06/28/22 11:00 2 06/28/22 08:00 2 06/28/22 09:37 06/28/22 07:30 2 06/28/22 07:00 06/28/22 03:19 2.0 Resident Activity Tracking Resident Involvement: Resident Care Provided Care Provided: Adult Hospital Medicine
[2022-06-28] MEDS ORDERED: LIDOCAINE 2% MPF LOCAL 5 ML VIAL INFIL ONE (12:55)
[2022-06-28] MEDS ORDERED: PROPOFOL IV EMULSION 10 MG/ML 20 ML VIAL IV ONE (12:55)
[2022-06-28] MEDS ORDERED: ONDANSETRON INJ 2 MG/ML 2 ML VIAL ONE (12:55)
--- NOTE | 2022-06-28 13:08 | Anesthesiology Consultation ---
Date of Service June 28, 2022 Assessment & Plan Chart Review Chart Review: Acceptable Risk for Surgery and Patient NOT seen in Pre Admission Testing Consults Requested none ASA ASA4 Proposed Anesthesia Anesthesia Type: MAC Risk / Benefits Reviewed With: PT / POA / Parent / Guardian, Accepts Plan and Informed Consent Obtained History Surgery Operation Date: 06/25/22 13:00 Proposed Procedures p Endobronchial Ultrasound (EBUS) - Loyd Hoffman MD Operation Date: 06/28/22 16:30 Proposed Procedures p Flexible Sigmoidoscopy Dr. Mathias - Hima Mathias MD Height/Weight Height: 5 ft 8 in Weight: 58.4 kg Allergies Allergy/AdvReac Type Severity Reaction Status Date / Time No Known Allergies Allergy Unverified 02/08/22 10:06 Medications Home Medications Medication Instructions Recorded Confirmed Last Taken aspirin 81 mg tablet 81 mg PO DAILY #30 tabs 07/06/19 02/08/22 Unknown multivitamin 1 tab PO DAILY 07/06/19 02/08/22 Unknown vit C,E,zinc,copper-enewv9a 250 1 cap PO DAILY 07/06/19 02/08/22 Unknown mg-lutein 5 mg-zeaxanthin 1 mg capsule (Ocuvite Adult 50 Plus) ibuprofen 600 mg tablet 1,200 mg PO QID PRN pain 02/08/22 02/08/22 Unknown atorvastatin 40 mg tablet 40 mg PO DAILY #90 tabs 03/20/22 Unknown fluticasone fur. 100 mcg-umeclid 1 inh inhalation DAILY #90 ea 03/20/22 Unknown 62.5 mcg-vilant 25 mcg inhalat.powder (Trelegy Ellipta) metoprolol succinate 25 mg 25 mg PO DAILY #90 tabs 03/20/22 Unknown tablet,extended release 24 hr omeprazole 20 mg capsule,delayed 20 mg PO DAILY #90 caps 03/20/22 Unknown release albuterol sulfate 90 mcg/actuation See Rx Instructions inhalation QID 05/07/22 Unknown aerosol inhaler PRN shortness of breath or wheezing #18 grams Active Medications Generic Name Dose Route Start Last Admin Trade Name Freq PRN Reason Stop Dose Admin Acetaminophen 650 mg 06/24/22 16:47 06/24/22 17:00 Acetaminophen 325 Mg Tab PO 07/24/22 16:46 650 mg Q4H PRN Administration Pain Albuterol 3 ml 06/23/22 11:52 06/25/22 14:55 Albut/Ipratrop 3mg/0.5mg Neb 3 Ml Vial NEB 07/23/22 11:51 3 ml Q2R PRN Administration Shortness of Breath/Wheezing Aspirin 81 mg 06/25/22 09:00 06/28/22 09:40 Aspirin 81 Mg Ectab PO 07/25/22 08:59 81 mg QAM KEN Administration Atorvastatin Calcium 40 mg 06/24/22 09:00 06/28/22 09:41 Atorvastatin 40 Mg Tab PO 07/24/22 08:59 40 mg DAILY KEN Administration Calcium Carbonate 500 mg 06/26/22 18:21 06/26/22 19:46 Calcium Carbonate 500 Mg Chewable Tab PO 07/26/22 18:20 500 mg Q6H PRN Administration Indigestion Enoxaparin Sodium 40 mg 06/26/22 09:00 06/28/22 11:02 Enoxaparin Inj 40 Mg/0.4 Ml Syr SQ 07/26/22 08:59 40 mg QAM KEN Administration Fluticasone Furoate 1 puffs 06/24/22 09:00 06/28/22 09:42 Fluticasone Furoate 100mcg 14 Puffs/Inhaler INH 07/24/22 08:59 1 puffs DAILY KEN Administration Protocol Promethazine HCl 12.5 mg/ 50.5 mls @ 202 mls/hr 06/25/22 08:09 06/26/22 13:46 Sodium Chloride IV 07/25/22 08:08 Infused Q6H PRN Infusion Nausea And Vomiting Metoprolol Succinate 12.5 mg 06/26/22 10:15 06/28/22 09:41 Metoprolol Succ 25mg Ext Rel Tab PO 07/26/22 10:14 12.5 mg QAM KEN Administration Pantoprazole Sodium 40 mg 06/26/22 09:00 06/28/22 09:41 Pantoprazole 40 Mg Tab PO 07/26/22 08:59 40 mg QAM KEN Administration Polyethylene Glycol 17 gm 06/27/22 12:00 06/28/22 11:03 Polyethylene (Miralax) 17 Gm Pack PO 07/27/22 11:59 Not Given BID KEN Umeclidinium/Vilanterol 1 puffs 06/24/22 09:00 06/28/22 09:41 Umeclidinium/Vilanterol 62.5/25mcg 7 Puffs/Inhaler INH 07/24/22 08:59 1 puffs DAILY KEN Administration Protocol Valsartan 40 mg 06/28/22 09:00 06/28/22 09:40 Valsartan 80 Mg Tab PO 07/28/22 08:59 40 mg QAM KEN Administration NPO Date Last Intake of Fluids: 06/28/22 Time Last Intake of Fluids: 09:40 Date Last Intake of Solids: 06/26/22 Time Last Intake of Solids: 18:00 Past Medical History Medical History Abnormal stress echo Small cell lung cancer Exercise / Class Metabolic Activity II 4-5 Yardwork/Stairs/Walk up hill Past Family History Family History Father Emphysema of lung Mother Lupus Sister Diabetes Denies family history of Ovarian cancer Prostate cancer Myocardial infarction Breast cancer Colorectal cancer Past Surgical History Surgical History History of AAA (abdominal aortic aneurysm) repair History of cataract surgery History of pacemaker S/P ICD (internal cardiac defibrillator) procedure Past Anesthesia History No Hx of Anesthesia Complications and No Family Hx of Anesthesia Complications History of PONV No Hx of PONV and No Hx of Motion Sickness Social History Smoking Status: Former smoker tobacco type: cigarettes Do You Dip or Chew Tobacco: No Hx Alcohol Use: Yes Alcohol type: beer alcohol intake frequency: holidays/special occasions only Hx Substance Use: No substance use type: does not use Physical Exam Vital Signs Last Vital Signs Temp 36.9 C 06/28/22 12:45 Pulse 95 H 06/28/22 12:45 Resp 16 06/28/22 12:45 BP 129/88 06/28/22 12:45 Pulse Ox 97 06/28/22 12:45 O2 Del Method 06/28/22 12:45 O2 Flow Rate 2 06/28/22 12:45 ENMT Mouth: no dentition abnormality Thyromental Distance: > or= 3.5 Finger Breadths Mallampati Class: II Neck normal visual inspection Respiratory normal respiratory effort Auscultation: lungs clear to auscultation bilaterally Cardiovascular Rate/Rhythm: regular rate and regular rhythm Neurologic Mild RUE and LUE weakness Psychiatric Orientation: alert Testing Laboratory Results 06/28/22 06:47 06/28/22 06:47 PT 11.7 Seconds (9.0-12.0) 06/23/22 08:55 INR 1.1 (0.9-1.1) 06/23/22 08:55 APTT 25.7 Seconds (21.0-31.0) 06/23/22 08:55 Hemoglobin A1c 6.1 % (4.5-5.6) H 06/24/22 11:23
--- NOTE | 2022-06-28 14:03 | GI REPORT ---
Patient Name: Eleno Cotto Procedure Date: 06/28/2022 1:07 PM Date of : 1945 Admit Type: Inpatient Age: 77 Gender: Male Attending MD: Hima Mathias MD Procedure: Flexible Sigmoidoscopy Providers: Hima Mathias MD Referring MD: Donny Guaman Indications: Abnormal CT of the GI tract Medicines: Monitored Anesthesia Care Complications: No immediate complications. Estimated blood loss: None. Estimated Blood Loss: Estimated blood loss: none. Procedure: Pre-Anesthesia Assessment: - Prior Anticoagulants: The patient has taken Lovenox (enoxaparin), last dose was day of procedure. - ASA Grade Assessment: II - A patient with mild systemic disease. After obtaining informed consent, the endoscope was passed under direct vision. Throughout the procedure, the patient's blood pressure, pulse, and oxygen saturations were monitored continuously. The Endoscope was introduced through the anus and advanced to the left transverse colon. The flexible sigmoidoscopy was accomplished without difficulty. The patient tolerated the procedure well. The quality of the bowel preparation was poor. Findings: An infiltrative partially obstructing medium-sized mass was found in the sigmoid colon. The mass was non-circumferential. No bleeding was present. Biopsies were taken with a cold forceps for histology. Estimated blood loss: none. A diffuse area of moderately granular and bnwnalse-leyojpv-lvfwmhydn mucosa was found in the sigmoid colon. Biopsies were taken with a cold forceps for histology. Estimated blood loss: none. Impression: - Preparation of the colon was poor. - Partially obstructing tumor in the sigmoid colon. Biopsied. - Granular and pyyjjdpt-gtrvahp-ngosnosrq mucosa in the sigmoid colon. Biopsied. Recommendation: - Resume previous diet today. - Await pathology results. - Return patient to hospital [facility] for ongoing care. -would advise miralax BID at minimum going forward Hima Mathias MD 06/28/2022 2:03:17 PM This report has been signed electronically. Note Initiated On: 06/28/2022 1:07 PM Number of Addenda: 0 I attest to the content of the Intraoperative Record and orders documented therein, exceptions below {[id number]}
--- NOTE | 2022-06-28 14:53 | Anesthesiology Progress Note ---
Date of Service June 28, 2022 Anesthesia Post Procedure Vital Signs Vital Signs: Temp Pulse Pulse Resp BP Pulse Ox O2 Del Method 06/28/22 14:37 36.4 C L 75 18 126/80 95 Nasal Cannula 06/28/22 14:03 89 20 123/70 94 Nasal Cannula 06/28/22 13:43 72 18 90/54 L 97 Nasal Cannula 06/28/22 13:33 66 16 104/54 L 97 Nasal Cannula 06/28/22 12:45 36.9 C 95 H 16 129/88 97 Nasal Cannula 06/28/22 11:00 36.4 C L 80 18 127/83 93 Nasal Cannula 06/28/22 08:00 Nasal Cannula 06/28/22 09:37 87 122/86 06/28/22 07:30 36.4 C L 85 18 125/78 93 Nasal Cannula 06/28/22 07:00 94 H 06/28/22 03:19 36.5 C 88 20 120/75 95 Nasal Cannula 06/27/22 22:55 36.8 C 101 H 20 125/73 91 Nasal Cannula 06/27/22 22:30 97 H 06/27/22 20:00 Nasal Cannula 06/27/22 19:30 36.3 C L 114 H 16 117/68 94 Nasal Cannula 06/27/22 16:02 36.6 C 97 H 18 113/67 95 Nasal Cannula 06/27/22 15:40 111 H O2 Flow Rate 06/28/22 14:37 06/28/22 14:03 4 06/28/22 13:43 4 06/28/22 13:33 4 06/28/22 12:45 2 06/28/22 11:00 2 06/28/22 08:00 2 06/28/22 09:37 06/28/22 07:30 2 06/28/22 07:00 06/28/22 03:19 2.0 06/27/22 22:55 3.0 06/27/22 22:30 06/27/22 20:00 3 06/27/22 19:30 2 06/27/22 16:02 1 06/27/22 15:40 Transfer of Care Handoff Completed per policy Notes Mental Status: alert / awake / arousable Patient Amnestic to Procedure: Yes Nausea / Vomiting: adequately controlled Pain: adequately controlled Airway Patency, RR, SpO2: stable & adequate BP & HR: stable & adequate Hydration State: stable & adequate Anesthetic Complications: no major complications apparent
[2022-06-29] MEDS: METOPROLOL SUCC 25MG EXT REL TAB PO SCH (08:38)
[2022-06-29] MEDS: FLUTICASONE FUROATE 100MCG 14 PUFFS/INHALER INH SCH (08:39)
[2022-06-29] MEDS: ASPIRIN 81 MG ECTAB PO SCH (08:40)
[2022-06-29] MEDS: PANTOprazole 40 MG TAB PO SCH (08:40)
[2022-06-29] MEDS: ATORVASTATIN 40 MG TAB PO SCH (08:41)
[2022-06-29] MEDS: UMECLIDINIUM/VILANTEROL 62.5/25MCG 7 PUFFS/INHALER INH SCH (08:43)
[2022-06-29] MEDS: POLYETHYLENE (MIRALAX) 17 GM PACK PO SCH (08:43)
[2022-06-29 09:31] LABS: Hematocrit (blood only) 34.7 % (40.1-51.0); Hemoglobin 11.2 g/dl (14.0-18.0); Mean Corpuscular Hemoglobin 25.7 pg (25.0-34.0); Mean Corpuscular Hgb Conc 32.3 g/dL (32.0-36.0); Mean Corpuscular Volume 79.8 fL (80.0-100.0); Mean Platelet Volume 9.2 fL (9.4-12.4); Platelet Count 347 K/uL (130-400); RDW Coefficient of Variation 17.3 % (11.5-14.5); RDW Standard Deviation 50.4 fL (36.4-46.3); Red Blood Count 4.35 M/uL (4.63-6.08); White Blood Count 6.32 K/ul (4.8-10.8)
[2022-06-29] MEDS: VALSARTAN 80 MG TAB PO SCH (09:48)
[2022-06-29] MEDS: ENOXAPARIN INJ 40 MG/0.4 ML SYR SQ SCH (09:49)
[2022-06-29 09:58] LABS: Albumin Level 2.9 gm/dl (3.4-5.0); BUN Creatinine Ratio 22.4 (10-20); Bilirubin,Total 1.1 mg/dl (0.2-1.0); Calcium 8.3 mg/dl (8.5-10.1); Creatinine Clr Calc Pharmacy 75.5 ml/min; Est GFR (African American) 107.4 ml/min; Est GFR (Non-African American) 92.7 ml/min; Globulin 2.9 gm/dl (2.5-4.0); Magnesium 1.8 mg/dl (1.7-2.4); Potassium 3.8 mmol/L (3.5-5.1); Total Protein 5.8 gm/dl (6.0-8.3)
[2022-06-29 12:09] VITALS: BP 121/81; PULSE 66; TEMP 97.9; O2SAT 92
[2022-06-29] MEDS ORDERED: STROKE PATIENT DISCHARGE STA (12:27)
--- NOTE | 2022-06-29 12:40 | Discharge Summary ---
Date of Service June 29, 2022 Admission HPI Per Admitting Provider Eleno Cotto is a 77-year-old male with a past medical history of GERD, elevated PSA, prediabetes, hypertension, hyperlipidemia abdominal aortic aneurysm, COPD, PVCs, and pacemaker placement who presented to the emergency department for shortness of breath beginning day of admission. Did have a history of COPD and was given DuoNeb treatments and steroids. While under observation he developed right arm ataxia and aphasia not present at baseline, patient did not have a history of A. fib/CVA. Patient was ordered TNKase in ER 0700 --> SoB presentation? Spectated COPD exacerbation 800am --> Nebs x2, Solumedrol 125mg by ALS, on NC oxygen feeling well 820am --> Aphasia Cardiomyopathy and pacermaker/defib for PVCs failling ablation CAD with Stent in Place AAA status postrepair with vascular Mi 2014 with yearly follow-up, last 2020 3 diabetes mellitus RUE, aphasia, ataxia, no lower extremity weakness Neuro monitor, ASA baby aspirin, waiting post TNK TNKase initiated 1013hrs Patient with clinical improvement, residual but improving expressive aphasia, some right upper extremity ataxia/finger-nose overshoot improving with 5/5 strength to shoulder flexion, elbow flexion/extension, wrist flexion/extension, locomotive pipe fitter strength bilaterally on hospitalist exam. CTA head: 1. No significant stenosis, occlusion, or aneurysm within the [place] of [place]. 2. No significant stenosis, occlusion, or dissection identified within the carotid or vertebral arteries. 3. Mild mediastinal and bilateral supraclavicular lymphadenopathy. There are also bilateral parotid gland nodules/lymph nodes as described above. Findings are concerning for a neoplastic process such as lymphoma 4. There is also mild asymmetric nodular thickening within the right lung apex with questionable subtle erosive changes within the right posterior second rib. This could also be due to an underlying neoplastic process. Therefore, follow-up nonemergent oncology consultation and PET CT is recommended for further evaluation of these findings. CT-H: 1. No acute intracranial abnormality. 2. 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 CT neck: pending Admission Exam Per Admitting Provider General: A&Ox3. NAD. Cooperative. HEENT: Atraumatic, normocephalic. Pulm: Coarse bilaterally, crackles in the lower [place], no wheezes appreciated at time of assessment. On nasal cannula symmetrical chest rise. No increase in work of breathing. No respiratory distress. Cardiac: Regular bigeminy, -mrg. Radial pulses intact and symmetrical. Abdominal: Nontender, nondistended, soft. BS present. Speech: Intermittent expressive aphasia without prominent dysarthria appreciated, improving from initial assessment CRANIAL NERVES: II: Pupils equal and reactive, no relative afferent pupillary defect, no VF cuts III, IV, : EOM intact, no gaze preference or deviation, no nystagmus. V: normal sensation in V1, V2, and V3 segments bilaterally VII: no asymmetry, no nasolabial fold flattening VIII: normal hearing to speech IX, X: normal palatal elevation, no uvular deviation XI: 5/5 head turn and 5/5 shoulder shrug bilaterally XII: midline tongue protrusion MOTOR: RUE: 5/5 Shoulder flexion, extension, abduction, adduction 5/5 Elbow flexion/extension, wrist flexion/extension 5/5 locomotive pipe fitter strength, finger flexion/extension, interosseus LUE: 5/5 Shoulder flexion, extension, abduction, adduction 5/5 Elbow flexion/extension, wrist flexion/extension 5/5 locomotive pipe fitter strength, finger flexion/extension, interosseus RLE: 5/5 to hip flexion, ankle dorsiflexion/plantarflexion LLE: 5/5 to hip flexion, ankle dorsiflexion/plantarflexion REFLEXES: 2/4 patellar DTR, 3/4 biceps DTR without asymmetry. no clonus SENSORY: Normal to touch, temp in upper and lower extremities without deficit or asymmetry No hemineglect COORD: Mild overextension of the right finger on bkadit-pw-nehp testing proving from prior per report, nbnw-ax-rnoh intact bilaterally Principal Diagnosis L parietal stroke, metastatic small cell carcinoma of lung Discharge Exam General: Alert, no acute distress HEENT: PERRLA, EOMI, moist mucous membranes Cardiovascular: RRR, normal S1 and S2 Resp: good inspiratory effort b/l, expiratory wheezes R > L, no crackles, no increased work of breathing Abd: soft, nontender, nondistended Neuro: 4/5 strength of RLE, no other focal motor or sensory deficits, speech clear and not slurred, no pronator drift Discharge Data Allergies Allergy/AdvReac Type Severity Reaction Status Date / Time No Known Allergies Allergy Unverified 02/08/22 10:06 Consultations 06/23/22 10:15 ED Decision to Admit Stat 06/23/22 11:52 Consult Card Checker Routine Consult Neurology Routine 06/26/22 15:06 Consult Oncology Routine 06/26/22 15:07 Consult Radiation Oncology Routine 06/27/22 12:24 Consult Gastroenterology Routine Procedures Performed Operation Date: 06/25/22 13:00 Actual Procedures p Endobronchial Ultrasound (EBUS)(Bilateral) - Loyd Hoffman MD Operation Date: 06/28/22 16:30 Actual Procedures p Colonoscopy Biopsy Cytology - Hima Mathias MD Ordered Studies 06/23/22 08:51 CT angio head w con Stat CT angio neck with con Stat CT head/brain wo con Stat 06/24/22 10:00 CT head/brain wo con Routine 06/25/22 08:13 CT chest with contrast [CT chest diagnostic w con] Routine 06/25/22 11:52 MR brain wo con Routine 06/26/22 12:45 CT abd pelvis oral and IV con Routine Hospital Course (1) Pulmonary nodule 1 cm or greater in diameter: (1) Pulmonary nodule 1 cm or greater in diameter: Plan: -Neck CTA on admission- asymmetric nodular mass of R lung apex concerning for potential malignancy -Also demonstrating mild mediastinal/supraclavicular/parotid b/l lymphadenopathy concerning for malignancy -CT chest 06/25- small b/l pleural effusions w/ atelectasis, R upper lobe consolidation with bronchial wall thickening -Recommend repeat CT t oevaluate resolution -Bronchoscopy performed 06/25- highly concerning for malignancy of R upper/middle lobe, aspirated -Pulmonology consulted and following -Will require outpatient PET -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 -CTAP 06/26 done for staging -R pleural effusion concerning for malignant effusion -Multiple aortocaval lymph nodes -Multiple R adrenal nodules new from prior CT suspicious for metastasis -Thickened mass of proximal sigmoid colon, possibly neoplasm vs fecal retention w/ stercoral colitis -Discharged home on 2L O2 at rest and exertion, will complete remainder of cancer workup/management as outpatient (2) Mass of colon: Plan: -CTAP findings as above with proximal sigmoid colon mass -Potential malignancy (unclear whether metastatic or primary) vs fecal retention with stercoral colitis -GI consulted 06/28 -Sigmoidosocopy completed- biopsies taken of colon mass and mucosa, pathology report pending at time of discharge -KUB 06/28- moderate fecal retention, improved from previous bowel imaging -Miralax BID given in hospital (3) Acute CVA (cerebrovascular accident): Plan: -Last known well at 8:20 AM on 06/24, symptoms included RUE weakness with dysarthria, ataxia -TNKase administered at 10:13 AM on 06/24, improvement in symptoms noted -CT Head- decreased attenuation of L parietal, possibly temporal lobe -MRI brain 06/25- acute L parietal + L posterior temporal lobe infarct, acute/subacute R inferior cerebellum infarct -Additional 1.1 cm cystic lesion of R occipital lobe- recommend 6 month f/u repeat MRI -Currently hemodynamically stable, BP improved, neurologic status improved by time of discharge -Continue aspirin, continue high-intensity statin -Pt will continue home PT/OT on discharge (4) Heart failure with reduced ejection fraction: Plan: -Echocardiogram 06/24- EF 30-35, moderate global LV hypokinesis, moderate/severe aortic stenosis -Echocardiogram 04/2021- EF 50-55% -Pt only on metoprolol XR 25 mg at home -Given HFrEF, pt's medication regimen should include beta amaya, sacubitril/valsartan, spironolactone and SGLT2 inhibitor -BP improving to 120s-130s/80s, resumed metoprolol XR at 12.5 mg on 06/26 -Added valsartan 40 mg on 06/27, discharged on valsartan 40 mg to take at home -PCP- consider adding sacubitril, spironolactone as BP tolerated -Pt does follow with [facility] cardiology -Remained euvolemic during hospitalization (5) CAD (coronary artery disease): Plan: - Troponin mildly elevated 23.2 on admission, will repeat - No ACS symptoms during stay, EKG negative for acute ST changes Troponin mildly elevated high-sensitivity on admission 23.2, likely demand ischemia Continued aspirin, atorvastatin 40 mg - Continued metoprolol XR 12.5 mg daily, will resume this 12.5 mg dose on discharge (home dose is 25 mg daily) (2) Mass of colon: (3) Acute CVA (cerebrovascular accident): (4) Heart failure with reduced ejection fraction: (5) CAD (coronary artery disease): (6) COPD (chronic obstructive pulmonary disease): (7) Hyperlipidemia: (8) Prediabetes: (9) GERD (gastroesophageal reflux disease): (10) AAA (abdominal aortic aneurysm) without rupture: Total Time Total Time Spent Total Time Spent (In Minutes): 30 Discharge Plan Discharge Items Patient Disposition: Home - Home Health Services Reason For Visit: STROKE S/P TNKASE, HYPOXIA ?COPD Discharge Diagnosis: Ischemic stroke, metastatic small cell carcinoma of lung Activity: Resume your previous activity Non-emergency contact: Primary Care Provider, Water Reclamation Systems Operator and Anthropologist Physical Call non-emergency contact if: you have any medication questions, your symptoms worsen, your pain is worsening and you have a fever Follow-up/Referrals: Estrella Doan CRNP [Primary Care Provider] - Lazaro Rodriguez MD [Physician] - Loyd Hoffman MD [Physician] - Hima Mathias MD [Physician] - Fernando Spears DO [Physician] - Diet: Heart Healthy Addtl Attending Provider Instructions: You were admitted to the hospital for a stroke. You were treated with blood thinning medication to break the blood clot that caused the stroke and your neurologic status improved after the initial stroke treatment. You were also noted to have an unusual lung mass which was evaluated to be metastatic lung cancer. There was also a colon mass which was biopsied yesterday and we are still awaiting results as to whether this is cancerous or benign. Thankfully your condition improved and you are stable to go home today. You will be discharged with home oxygen to help your breathing as you continue the cancer evaluation on an outpatient basis. Home health services and physical therapy will help recover your strength after the stroke as well. A discharge summary will be sent to your primary care physician to ensure continuity of care. Please bring this discharge summary with you to your next office appointment so that your provider can review it at that time. Follow-up appointments: -Make a follow-up appointment with your PCP within the next week. It is very important that you follow up with them shortly after discharge from the hospital. -You will also see the oncology, pulmonology and gastroenterology teams as outpatient for your cancer management. Medications: Your medication list has been reviewed and reconciled upon discharge to ensure accuracy and continuity of care. An updated list of all your medications is included with your hospital discharge paperwork. Please review this list closely, and make note of any changes. Please take metoprolol 12.5 mg daily. Your usual home dose is 25 mg. We halved it in the hospital and would like you to continue at this dose- please take a half tablet daily. We also sent valsartan 40 mg to the pharmacy. We gave you valsartan at the hospital to control your blood pressure and also promote your heart function since it declined over the years. Please take valsartan 40 mg daily. Take your medications as instructed; do not skip a dose of your medicines. Make sure all of your doctors know every medicine you are taking (including jgqu-vwq-szzkrqm medicines, vitamins, and supplements). Call your primary care provider before taking any new medicines (including dukg-wrq-uzfehsp medicines, vitamins, and supplements), because some of these may interact with your current medications, or may make your symptoms worse. Tell your primary care provider if you cannot afford your medications. CONTACT YOUR PRIMARY CARE PROVIDER if you experience any of the following: Shortness of breath Fever Abdominal pain Weakness, numbness Headache Nausea Difficulty following your treatment plan, or difficulty taking medications CALL 911 OR GO TO THE EMERGENCY DEPARTMENT if you experience any of the following: Sudden, severe abdominal pain or nausea/vomiting Severe chest pain, or chest pain that radiates (moves) to your jaw or arm Sudden, severe shortness of breath or difficulty breathing Thank you for allowing us to participate in your care. Pending Studies at Discharge: Yes Studies:: Biopsy of sigmoid colon mass Stand-Alone Forms: Medications to Prevent Stroke, My [employer], Smoking Cessation Medications and DC Order Prescriptions: New valsartan 40 mg tablet 40 mg PO BID Qty: 30 1RF Continued metoprolol succinate 25 mg tablet extended release 24 hr 25 mg PO DAILY Qty: 90 3RF omeprazole 20 mg capsule,delayed release(DR/EC) 20 mg PO DAILY Qty: 90 3RF atorvastatin 40 mg tablet 40 mg PO DAILY Qty: 90 3RF Trelegy Ellipta 100-62.5-25 mcg blister with device 1 inh inhalation DAILY Qty: 90 3RF albuterol sulfate 90 mcg/actuation HFA aerosol inhaler See Rx Instructions inhalation QID PRN (Reason: shortness of breath or wheezing) Qty: 18 11RF Rx Instructions: 1-2 puffs inhalation four times daily PRN; ibuprofen 600 mg tablet 1,200 mg PO QID PRN (Reason: pain) Ocuvite Adult 50 Plus 250-5-1 mg capsule 1 cap PO DAILY multivitamin tablet 1 tab PO DAILY aspirin 81 mg tablet 81 mg PO DAILY Qty: 30 Discharge Orders: Discharge Order (Routine); Ordered 06/29/22 Ordered By: Telly Nascimento/Other Patient Handouts: A1C, Prediabetes Admission Data Admit Date/Time: 06/23/22 10:58 Attending Provider: Richmond Cedeño Admit Provider: Tulio Perdomo Primary Care Provider: Estrella Doan Other Providers: Tulio Perdomo ; Alfa Schroeder ; Alfa Cristina ; Rama Cristobal ; Archana Thomas ; Lorrie Terrell ; Devendra Mauro ; Moose Rendon ; Sindhu Nassar ; [facility],No Attending ; Lachelle Hernandez ; Lazaro Rodriguez ; Aquiles Simmons ; [facility],Referral Center ; [facility] ; [employer] Other Interventions: Discharge Summary Assessment (RN) Last Done: 06/29/22 13:24 Supervising Physician Co-Signing Physician Notes Patient seen and examined independently of PGY-2 Dr. Billingsley. Agree with history, exam findings, assessment and plan of care as outlined. In brief, Mr. Cotto is a 77 year old male with history of GERD, elevated PSA, HTN, HLD, AAA, COPD and prior pacemaker placement admitted for dyspnea. Today, feels well. No complaints. VS and nursing notes reviewed. Heart with regular rage and rhythm. Trace edema bilateral lower extremities. Lungs with good air movement throughout and slight end expiratory wheeze. Labs and imaging reviewed. 1. Acute CVA. MRi brain with acute left parietal and left posterior temporal love infarct with acute/subacute right inferior cerebellar infarct. Continue ASA, atorvastatin 40mg. Deficits are improving. 2. Metastatic small cell carcinoma. Mass in the right lung apex with lymphadenopathy. Will follow up with oncology as an outpatient. 3. Hypoxia. 2 step showing 2L at rest, 2L with exertion. 4. Sigmoid colon mass. Biopsy on 06/28. Path pending. 5. HFrEF. EF 30-35%, moderate global LV hypokinesis, moderate to severe aortic stenosis. Continue metoprolol; started valsartan here but can consider Entresto as blood pressure tolerates as an outpatient. 6. COPD. Continue with Anoro (uses fluticasone at home), ICS and FV. Dispo: discharge home today. I personally spent 35 minutes discharge planning for this patient. Resident Activity Tracking Resident Involvement: Resident Care Provided Care Provided: Adult Hospital Medicine
--- NOTE | 2022-06-29 16:02 | Consultation Report ---
DATE OF SERVICE: 06/28/2022. REASON FOR CONSULTATION: Small cell lung cancer. HISTORY OF PRESENT ILLNESS: The patient is a 77-year-old gentleman who presented to the ER at [facility] on 06/23/2022 with complaints of shortness of breath. While in the ER, patishamar peterson was noted to have right arm ataxia and aphasia suspicious for CVA, for which the patient had tissue plasminogen activator. CT head obtained on 06/23/2022 revealed no evidence of acute intracranial abn ormality; however, old punctate bilateral thalami lacunar infarct was noted. CTA head obtained on revealed no significant stenosis or occlusion, was incidentally noted mild mediastinal and b ilateral supraclavicular lymphadenopathy as well as nodular thickening in the right lung apex, possib ly due to underlying malignancy. CT chest obtained on 06/25/2022 revealed small right and trace left pleural effusions, consolidation in the right upper lobe with bronchial thickening, right hilar medi astinal lymphadenopathy. On 06/25/2022, patient underwent bronchoscopy with EBUS FNA by Dr. Dalton granda h pathology revealing metastatic small cell carcinoma. He was subsequently evaluated by Radiation On cology with recommendation for possibly concurrent chemoradiation treatments given evidence of likely limited stage small cell lung cancer. CT abdomen and pelvis on 06/26/2022 revealed small right pleu ral effusion with multiple small enhancing right pleural nodules, multiple pathologically enlarged ao rtocaval lymph nodes consistent with neoplastic process, several right adrenal nodules suspicious for metastasis, mass-like thickening of the proximal sigmoid colon with large amount of stool and modera te colonic dilatation for which colonic neoplasm could not be excluded. Patient subsequently underwe nt sigmoidoscopy on 06/28/2022 which revealed partially obstructing tumor in the sigmoid colon, which was biopsied with pathology pending. At this time of seeing the patient today, he complained of chapis rtness of breath, but denied any other issues. HOME MEDICATIONS: 1. Aspirin 81 mg p.o. daily. 2. Multivitamin. 3. Ibuprofen as needed. 4. Atorvastatin 40 mg p.o. daily. 5. Metoprolol 25 mg p.o. daily. 6. Omeprazole 20 mg p.o. daily. ALLERGIES: No known drug allergies. PAST MEDICAL HISTORY: 1. Hypertension. 2. Hyperlipidemia. PAST SURGICAL HISTORY: 1. ICD placement. 2. Abdominal aortic aneurysm repair. FAMILY HISTORY: Not contributory. SOCIAL HISTORY: Endorses a past history of smoking cigarettes with more than 94-jrmc-qciw history of smoking. Quit smoking several years ago. Denies illicit drug use or alcohol use. REVIEW OF SYSTEMS: Unremarkable except as noted above. PHYSICAL EXAMINATION: Unremarkable. ASSESSMENT AND PLAN: 1. Small cell lung cancer, likely extensive stage given bilateral adrenal nodules. 2. Colonic mass with pathology pending. A pleasant 77-year-old gentleman with significant past history of smoking, who presented with shortne ss of breath, was incidentally noted to have right lung lesion with mediastinal/hilar lymphadenopathy . He had a colonoscopy today, which also revealed colonic mass for which pathology is pending. Give n aggressive nature of small cell lung cancer, he would benefit from starting palliative chemo immuno therapy as soon as possible as I suspect that he has extensive stage disease given presence of bilate ral adrenal nodules. Although he appears to have colon cancer, treatment for this may have to be hel d pending initial induction chemotherapy treatment with carboplatin/etoposide given aggressive nature of small cell lung cancer. The patient will be seen upon discharge from hospital in Oncology clinic today to discuss overall treatment plan as well as obtain a PET/CT at that time. Thank you for this consult. We will plan to see the patient upon discharge from hospital. Feel free to call if you have any further questions. Job ID: [id number]
== END 2022-06-29 14:18 | disposition home health service (06) | DRG 41 ==
LOC: ED 08:41 → SUATTDRO 10:58 → 1E 10:58 → 2S 06-26 16:45

== ENCOUNTER 2022-07-23 09:30 | Inpatient (IN) ==
[2022-07-23] MEDS ORDERED: SODIUM CHLORIDE 0.9% 1000ML 1,000 ML IV SCH (09:45)
[2022-07-23 10:05] LABS: Basophils # (auto) 0.01 K/uL (0-0.2); Basophils % (auto) 0.1 %; Hematocrit (blood only) 35.7 % (40.1-51.0); Hemoglobin 11.6 g/dl (14.0-18.0); Immature Granulocytes # (auto) 0.04 K/uL (0.00-0.02); Immature Granulocytes % (auto) 0.4 %; Lymphocytes # (auto) 0.63 K/uL (1.2-3.4); Lymphocytes % (auto) 5.9 %; Mean Corpuscular Hemoglobin 25.4 pg (25.0-34.0); Mean Corpuscular Hgb Conc 32.5 g/dL (32.0-36.0); Mean Corpuscular Volume 78.1 fL (80.0-100.0); Monocytes # (auto) 0.79 K/uL (0.24-0.82); Monocytes % (auto) 7.3 %; Neutrophils # (auto) 9.29 K/uL (1.4-6.5); Neutrophils % (auto) 86.3 %; Platelet Count 498 K/uL (130-400); RDW Coefficient of Variation 18.6 % (11.5-14.5); Red Blood Count 4.57 M/uL (4.63-6.08); White Blood Count 10.76 K/ul (4.8-10.8)
[2022-07-23] MEDS ORDERED: ALBUT/IPRATROP 3MG/0.5MG NEB 3 ML VIAL NEB STA (10:09)
[2022-07-23 10:17] LABS: iSTAT Arterial Blood Gas HCO3 25 meg/L (19-24); iSTAT Arterial Blood Gas pCO2 35 mmHg (35-46); iSTAT Arterial Blood Gas pH 7.46 (7.35-7.45); iSTAT Arterial Blood Gas pO2 73 mmHg (80-95); iSTAT Carbon Dioxide 26 mmol/L (24-31)
--- NOTE | 2022-07-23 10:22 | XRay Report ---
XR chest 1V portable CLINICAL HISTORY: Sepsis. Small cell lung cancer. COMPARISON STUDY: Chest CT June 25, 2022. FINDINGS: Left subclavian pacer/AICD is in place. There is no pneumothorax. A small right pleural eff usion is present. Severe emphysema. Mass-like opacity within the right upper lobe has progressed sinc e chest CT of June 25, 2022. Interstitial thickening is noted. Opacity at the medial right lung base has developed. Mediastinal widening likely corresponds to lymphadenopathy shown on CT. IMPRESSION: 1. Progression of mass-like opacity within the right upper lobe. This is likely neoplastic with possi ble postobstructive pneumonia. 2. Suspected mild pulmonary edema. Small right pleural effusion. 3. Emphysema. 4. Opacity at the medial right lung base. This could reflect atelectasis. ACT 112: Negative or not required by law. Electronically signed by: Seven Dyer M.D. 07/23/2022 10:21 AM
[2022-07-23 10:23] LABS: Alanine Aminotransferase 28 U/L (7-52); Albumin Globulin Ratio 0.7 (0.9-2); Albumin Level 2.7 gm/dl (3.4-5.0); Alkaline Phosphatase 146 U/L (34-104); Anion Gap 9 (3-11); Aspartate Aminotransferase 26 U/L (13-39); BUN Creatinine Ratio 36.1 (10-20); Bilirubin,Total 1.2 mg/dl (0.2-1.0); Blood Urea Nitrogen 22 mg/dl (6-23); Calcium 8.6 mg/dl (8.5-10.1); Carbon Dioxide 25 mmol/L (21-32); Chloride 101 mmol/L (98-107); Est GFR (African American) 111.6 ml/min; Est GFR (Non-African American) 96.3 ml/min; Globulin 3.7 gm/dl (2.5-4.0); Glucose 132 mg/dl (70-99(Fasting)); Potassium 4.5 mmol/L (3.5-5.1); Sodium 135 mmol/L (136-145); Total Protein 6.4 gm/dl (6.0-8.3)
[2022-07-23 10:35] LABS: INR 1.3 (0.9-1.1); Prothrombin Time 13.2 Seconds (9.0-12.0)
[2022-07-23] MEDS ORDERED: PIPERACILLIN/TAZOBACTAM 4.5 GM/120 ML BAG IV ONE (10:42)
[2022-07-23] MEDS ORDERED: VANCOMYCIN CONSULT ACTIVE PRN (11:12)
[2022-07-23] MEDS ORDERED: VANCOMYCIN HCL 1,000 MG in SODIUM CHLORIDE 0.9% 500 ML IV ONE (11:12)
[2022-07-23] MEDS ORDERED: OPTIRAY 300 500mL IV ONE (12:02)
--- NOTE | 2022-07-23 12:10 | History & Physical Report ---
Date of Service July 23, 2022 Assessment & Plan (1) Small cell lung cancer: Plan: Diagnosed on 06/25 on bronchoscopy. Has decided not to pursue treatment. - CTA on admission indicates worsening cancer with large right-sided pleural effusion. No official read, but on my review, I do not see PE or pneumonia. Right upper upper bronchus looks occluded to me. - Continue Zosyn, MRSA swab negative - Pulm consulted for possible Pleur-X vs. thoracentesis - Supplemental O2 as able. No CPAP/BiPap per patient wishes. Would move to comfort care if his respiratory status decompensates. - Lidocaine patch for pathologic fracture - Discussed palliative care/hospice with patient and family. Patient seemed reluctant to that idea, though his and son seemed more receptive. Can re- raise this idea in 1-2 days. (2) CAD (coronary artery disease): Plan: No chest pain. BMS to mid-LAD in 02/2015. - Hold ASA for possible thoracentesis/Pleur-X - Continue beta-amaya (3) Acute CVA (cerebrovascular accident): Plan: During last admission. Received tPA. Brain MRI on 06/25 showed acute infarct within the left parietal and posterior left temporal lobes and 1.1 cm acute or subacute infarct within the inferior right cerebellum. - Hold ASA as above (4) Pacemaker: Plan: [employer] ICD placed in 03/2017 for primary prevention (ie, must have had prolonged EF <= 35%) as well as sinus note dysfunction. - Will need to contact [employer] or cardiology to turn off ICD function (5) COPD (chronic obstructive pulmonary disease): Plan: No wheezing on exam; do not think he is bronchospastic. While he has shortness of breath, I think this is from his cancer, bronchial compression/occlusion from the tumor, and the pleural effusion. - Continue home maintenance inhaler (or formulary equivalent) - DuoNebs PRN (6) Benign hypertension: Plan: BP today is 110/70. - Continue home beta-amaya DVT ppx: Lovenox 40 mg SQ daily DNR/DNI - Does not want to be hooked up to any machines, including CPAP/BiPap. Would prefer transition to comfort measures only if he were to decompensate. History of Present Illness Primary Care Provider: LAURE Desai 77yo M w/ hx of recent diagnosis of small cell lung cancer and possible colon cancer who presents with worsening shortness of breath. The patient was recently admitted to the hospital with shortness of breath and found to have small cell lung cancer on bronchoscopy. He was seen by oncology, but has decided to not pursue further therapy. In addition, he has a colon mass that may be cancer. Colonoscopy showed benign adenoma; however, GI note indicates that they feel it is likely he may have cancer deeper down. He has declined repeat colonoscopy to check. He and his report that about 1 week ago, he started to have worsening shortness of breath. His turned his home O2 up to 3L from 2L, and he has been wearing it more consistently. In addition, he has worn it more frequently as he reports he had been wearing it somewhat "PRN" previously. He reports some increase in cough and sputum production, though not necessarily sputum purulence. He reports some chills at home, but no subjective fevers and no measured temps. Allergies Allergy/AdvReac Type Severity Reaction Status Date / Time No Known Allergies Allergy Verified 07/10/22 13:53 Home Medications Medication Instructions Recorded Confirmed Type aspirin 81 mg tablet 81 mg PO DAILY #30 tabs 07/06/19 07/10/22 History multivitamin 1 tab PO DAILY 07/06/19 07/10/22 History vit C,E,zinc,copper-vqpjt1k 250 1 cap PO DAILY 07/06/19 07/10/22 History mg-lutein 5 mg-zeaxanthin 1 mg capsule (Ocuvite Adult 50 Plus) ibuprofen 600 mg tablet 1,200 mg PO QID PRN pain 02/08/22 07/10/22 History atorvastatin 40 mg tablet 40 mg PO DAILY #90 tabs 03/20/22 07/10/22 Rx fluticasone fur. 100 mcg-umeclid 1 inh inhalation DAILY #90 ea 03/20/22 07/10/22 Rx 62.5 mcg-vilant 25 mcg inhalat.powder (Trelegy Ellipta) metoprolol succinate 25 mg 25 mg PO DAILY #90 tabs 03/20/22 07/10/22 Rx tablet,extended release 24 hr omeprazole 20 mg capsule,delayed 20 mg PO DAILY #90 caps 03/20/22 07/10/22 Rx release albuterol sulfate 90 mcg/actuation See Rx Instructions inhalation QID 05/07/22 07/10/22 Rx aerosol inhaler PRN shortness of breath or wheezing #18 grams Flutter Valve #1 ea 07/05/22 07/10/22 Rx oxygen 3l per NC #1 ea 07/12/22 07/12/22 Rx Past Med/Surg History Medical History (Updated 07/23/22 @ 13:02 by Landon Tomlinson MD) Abnormal stress echo Mass of colon benign Pleural effusion Postobstructive pneumonia Small cell lung cancer Surgical History History of AAA (abdominal aortic aneurysm) repair History of cataract surgery History of pacemaker S/P ICD (internal cardiac defibrillator) procedure Family History Father Emphysema of lung Mother Lupus Sister Diabetes Denies family history of Ovarian cancer Prostate cancer Myocardial infarction Breast cancer Colorectal cancer Social History Smoking Status: Former smoker Tobacco Type: Cigarettes Age Started Using Tobacco: 16; Age Quit Using Tobacco: 71; packs per day: 1; Second Hand Exposure: No; Hx Alcohol Use: Yes Alcohol type: beer Hx Substance Use: No Preferred Language: Bahamian Communication Ability: Effective Hearing Ability: Use of Hearing Aid Appeals Rn Required: No Beliefs That Will Affect Care: None marital status: Current Living Situation: Spouse and Family current occupational status: retired How many Children do You have: 2 Feels Safe at Home: Yes Childhood Exposure to Second-Hand Smoke: Yes caffeine: Yes Dental Care, Regularly: Yes Physical Activity Frequency: Daily Physical Activity Frequency Comment: Walking Seatbelt Use: always Sunscreen Use: Yes Assistive Devices: None Review of Systems Review of Systems: All systems reviewed & are unremarkable except as noted in HPI & below Physical Exam Constitutional: + ill appearing and + frail appearing Eyes: EOM intact bilaterally; no conjunctival abnormality ENMT: external ear and nose normal, oropharynx normal Neck: trachea midline, no thyromegaly normal visual inspection Respiratory: + respiratory distress, + uses accessory muscles, + cough and + tachypneic Auscultation: + diminished lung sounds and + crackles Cardiovascular: Rate/Rhythm: regular rhythm and + tachycardic Vessels: no JVD Extremities: no edema Gastrointestinal (Abdomen): Inspection/Auscultation: abdomen normal to inspection; abdomen not distended Musculoskeletal: no cyanosis or clubbing, extremities motor strength 5/5 Skin: no rashes, warm and dry Neurologic: moves all extremities and awake Psychiatric: Orientation: alert, oriented to person and cooperative Results & Data Results & Data ([facility]) Vital Signs (Past 12 Hours) Vital Signs Temp Pulse Pulse Resp BP Pulse Ox O2 Del Method 07/23/22 11:02 117 H 34 H 92 BiPAP 07/23/22 11:02 111/72 07/23/22 11:00 117 H 34 H 91 BiPAP 07/23/22 10:31 89 28 H 92 BiPAP 07/23/22 10:31 91/61 L 07/23/22 10:30 49 L 24 92 BiPAP 07/23/22 10:00 118 H 37 H 94 BiPAP 07/23/22 10:00 96/63 L 07/23/22 09:37 122 H 38 H 92 Nasal Cannula 07/23/22 09:37 119/94 07/23/22 09:34 96 Non-rebreather 07/23/22 10:00 BiPAP 07/23/22 11:00 92 BiPAP 07/23/22 10:30 92 BiPAP 07/23/22 10:00 94 BiPAP 07/23/22 09:42 90 Nasal Cannula, BiPAP 07/23/22 09:42 Nasal Cannula 07/23/22 09:35 36.8 C 120 H 50 H 119/94 90 Nasal Cannula 07/23/22 10:16 102 H 32 H 94 BiPAP 07/23/22 10:00 117 H 36 H 93 O2 Flow Rate FiO2 07/23/22 11:02 07/23/22 11:02 07/23/22 11:00 07/23/22 10:31 07/23/22 10:31 07/23/22 10:30 07/23/22 10:00 07/23/22 10:00 07/23/22 09:37 4 07/23/22 09:37 07/23/22 09:34 10 07/23/22 10:00 07/23/22 11:00 07/23/22 10:30 07/23/22 10:00 10 07/23/22 09:42 4 07/23/22 09:42 4 07/23/22 09:35 4 07/23/22 10:16 30 07/23/22 10:00 35 Code Status & VTE Plan VTE Prophylaxis Plan VTE Prophylaxis will be ordered: Yes PG Care Time/CCT Total # of Minutes Spent Total Time Spent with Patient: Total time spent is greater than 50% in coordination of care (as documented) at patient's floor/unit and/or counseling patient: Coding Level of Care Code 76716 Initial Inpt Care Lvl 3 Diagnoses Small cell lung cancer C34.90 CAD (coronary artery disease) I25.10 Acute CVA (cerebrovascular accident) I63.9 Pacemaker Z95.0 COPD (chronic obstructive pulmonary disease) J44.9 Benign hypertension I10
--- NOTE | 2022-07-23 12:28 | Emergency Department Note ---
History of Present Illness General Chief complaint: Shortness of Breath/Dyspnea Time Seen by Provider: 07/23/22 09:34 Source: patient and EMS Mode of arrival: EMS Limitations: no limitations History of Present Illness Provider complaint: shortness of breath This is a 77-year-old male who presents emergency department due to increased shortness of breath. Patient states he does have history of COPD and was recently diagnosed with lung cancer. He states he does wear 2-1/2 L at home chronically and does use MDI and nebulizer treatments. He states today he felt his breathing was worse and cannot get comfortable. He states his did turn up his oxygen but he did not feel as though that was helping, so she called 911. He denies any fevers or chills, denies any change in his cough or sputum. He denies any coming chest pain or lower extremity swelling. Patient states he is taking his medications as prescribed. He denies any known sick contacts. Upon arrival here, RT was contacted for BiPAP due to patient's work of breathing and tachypnea. Pt seen during a time of high acuity and national emergency pandemic while wearing PPE. Home Medications Medication Instructions Recorded Confirmed Type aspirin 81 mg tablet 81 mg PO DAILY #30 tabs 07/06/19 07/10/22 History multivitamin 1 tab PO DAILY 07/06/19 07/10/22 History vit C,E,zinc,copper-sgukk5j 250 1 cap PO DAILY 07/06/19 07/10/22 History mg-lutein 5 mg-zeaxanthin 1 mg capsule (Ocuvite Adult 50 Plus) ibuprofen 600 mg tablet 1,200 mg PO QID PRN pain 02/08/22 07/10/22 History atorvastatin 40 mg tablet 40 mg PO DAILY #90 tabs 03/20/22 07/10/22 Rx fluticasone fur. 100 mcg-umeclid 1 inh inhalation DAILY #90 ea 03/20/22 07/10/22 Rx 62.5 mcg-vilant 25 mcg inhalat.powder (Trelegy Ellipta) metoprolol succinate 25 mg 25 mg PO DAILY #90 tabs 03/20/22 07/10/22 Rx tablet,extended release 24 hr omeprazole 20 mg capsule,delayed 20 mg PO DAILY #90 caps 03/20/22 07/10/22 Rx release albuterol sulfate 90 mcg/actuation See Rx Instructions inhalation QID 05/07/22 07/10/22 Rx aerosol inhaler PRN shortness of breath or wheezing #18 grams Flutter Valve #1 ea 07/05/22 07/10/22 Rx oxygen 3l per NC #1 ea 07/12/22 07/12/22 Rx Allergies Allergy/AdvReac Type Severity Reaction Status Date / Time No Known Allergies Allergy Verified 07/10/22 13:53 Past Med/Surg History Medical History Abnormal stress echo Mass of colon benign Pleural effusion Postobstructive pneumonia Small cell lung cancer Surgical History History of AAA (abdominal aortic aneurysm) repair History of cataract surgery History of pacemaker S/P ICD (internal cardiac defibrillator) procedure Family History Father Emphysema of lung Mother Lupus Sister Diabetes Denies family history of Ovarian cancer Prostate cancer Myocardial infarction Breast cancer Colorectal cancer Social History Smoking Status: Former smoker Tobacco Type: Cigarettes Age Started Using Tobacco: 16; Age Quit Using Tobacco: 71; packs per day: 1; Second Hand Exposure: No; Hx Alcohol Use: No Hx Substance Use: No Preferred Language: Macedonian Communication Ability: Effective Hearing Ability: Use of Hearing Aid Care Transition Manager Required: No Beliefs That Will Affect Care: None marital status: Current Living Situation: Spouse Current Living Situation Comment: Home with current occupational status: retired How many Children do You have: 2 Feels Safe at Home: Yes Childhood Exposure to Second-Hand Smoke: Yes caffeine: Yes Dental Care, Regularly: Yes Physical Activity Frequency: Daily Physical Activity Frequency Comment: Walking Seatbelt Use: always Sunscreen Use: Yes Assistive Devices: Oxygen - Continuous and Walker Review of Systems A total of 10 systems reviewed and were otherwise negative All systems reviewed & are unremarkable except as noted in HPI & below Physical Exam Vital Signs Vital Signs - 24 hr 07/23/22 10:00 07/23/22 10:16 07/23/22 09:35 Temperature 36.8 C Temperature Source Oral Pulse Rate 117 H 120 H Pulse Rate [Apical] 102 H Pulse Rate from SpO2 Sensor Respiratory Rate 36 H 32 H 50 H Respiratory Effort / Characteristics Spontaneous Short of Breath Spontaneous Short of Breath Accessory Muscle Use Labored Short of Breath Respiratory Depth Shallow Shallow Respiratory Pattern Tachypnea Rapid/Shallow Tachypnea Blood Pressure 119/94 Blood Pressure Mean 102 Blood Pressure Position Sitting Pulse Oximetry 93 94 90 Oxygen Delivery Method BiPAP Nasal Cannula Oxygen Flow Rate 4 Fraction of Inspired Oxygen 35 30 Sepsis Recent Fever Within 48 Hours No Sepsis New/Unexplained Change in Mental Status N/A Sepsis Action Taken by Nursing Physician Notified Oxygen Flow Rate - Titration Pulse Oximetry Post Tiitration 07/23/22 09:42 07/23/22 09:42 07/23/22 10:00 Temperature Temperature Source Pulse Rate Pulse Rate [Apical] Pulse Rate from SpO2 Sensor Respiratory Rate Respiratory Effort / Characteristics Accessory Muscle Use Labored Short of Breath Non-Labored Spontaneous Respiratory Depth Shallow Respiratory Pattern Rapid/Shallow Tachypnea Blood Pressure Blood Pressure Mean Blood Pressure Position Pulse Oximetry 90 94 Oxygen Delivery Method Nasal Cannula Nasal Cannula BiPAP BiPAP Oxygen Flow Rate 4 4 10 Fraction of Inspired Oxygen Sepsis Recent Fever Within 48 Hours Sepsis New/Unexplained Change in Mental Status Sepsis Action Taken by Nursing Oxygen Flow Rate - Titration 10 Pulse Oximetry Post Tiitration 92 07/23/22 10:30 07/23/22 11:00 07/23/22 10:00 Temperature Temperature Source Pulse Rate Pulse Rate [Apical] Pulse Rate from SpO2 Sensor Respiratory Rate Respiratory Effort / Characteristics Respiratory Depth Respiratory Pattern Blood Pressure Blood Pressure Mean Blood Pressure Position Pulse Oximetry 92 92 Oxygen Delivery Method BiPAP BiPAP BiPAP Oxygen Flow Rate Fraction of Inspired Oxygen Sepsis Recent Fever Within 48 Hours Sepsis New/Unexplained Change in Mental Status Sepsis Action Taken by Nursing Oxygen Flow Rate - Titration Pulse Oximetry Post Tiitration 07/23/22 09:34 07/23/22 09:37 07/23/22 09:37 Temperature Temperature Source Pulse Rate 122 H Pulse Rate [Apical] Pulse Rate from SpO2 Sensor 123 H 121 H Respiratory Rate 38 H Respiratory Effort / Characteristics Respiratory Depth Respiratory Pattern Blood Pressure 119/94 Blood Pressure Mean 102 Blood Pressure Position Pulse Oximetry 96 92 Oxygen Delivery Method Non-rebreather Nasal Cannula Oxygen Flow Rate 10 4 Fraction of Inspired Oxygen Sepsis Recent Fever Within 48 Hours Sepsis New/Unexplained Change in Mental Status Sepsis Action Taken by Nursing Oxygen Flow Rate - Titration Pulse Oximetry Post Tiitration 07/23/22 10:00 07/23/22 10:00 07/23/22 10:30 Temperature Temperature Source Pulse Rate 118 H 49 L Pulse Rate [Apical] Pulse Rate from SpO2 Sensor 115 H 105 H Respiratory Rate 37 H 24 Respiratory Effort / Characteristics Respiratory Depth Respiratory Pattern Blood Pressure 96/63 L Blood Pressure Mean 74 Blood Pressure Position Pulse Oximetry 94 92 Oxygen Delivery Method BiPAP BiPAP Oxygen Flow Rate Fraction of Inspired Oxygen Sepsis Recent Fever Within 48 Hours Sepsis New/Unexplained Change in Mental Status Sepsis Action Taken by Nursing Oxygen Flow Rate - Titration Pulse Oximetry Post Tiitration 07/23/22 10:31 07/23/22 10:31 07/23/22 11:00 Temperature Temperature Source Pulse Rate 89 117 H Pulse Rate [Apical] Pulse Rate from SpO2 Sensor 102 H 116 H Respiratory Rate 28 H 34 H Respiratory Effort / Characteristics Respiratory Depth Respiratory Pattern Blood Pressure 91/61 L Blood Pressure Mean 71 Blood Pressure Position Pulse Oximetry 92 91 Oxygen Delivery Method BiPAP BiPAP Oxygen Flow Rate Fraction of Inspired Oxygen Sepsis Recent Fever Within 48 Hours Sepsis New/Unexplained Change in Mental Status Sepsis Action Taken by Nursing Oxygen Flow Rate - Titration Pulse Oximetry Post Tiitration 07/23/22 11:02 07/23/22 11:02 07/23/22 11:30 Temperature Temperature Source Pulse Rate 117 H Pulse Rate [Apical] Pulse Rate from SpO2 Sensor 113 H Respiratory Rate 34 H Respiratory Effort / Characteristics Spontaneous Short of Breath Respiratory Depth Respiratory Pattern Blood Pressure 111/72 Blood Pressure Mean 85 Blood Pressure Position Pulse Oximetry 92 Oxygen Delivery Method BiPAP Nasal Cannula Oxygen Flow Rate 4 Fraction of Inspired Oxygen Sepsis Recent Fever Within 48 Hours Sepsis New/Unexplained Change in Mental Status Sepsis Action Taken by Nursing Oxygen Flow Rate - Titration Pulse Oximetry Post Tiitration 07/23/22 11:30 07/23/22 11:31 07/23/22 11:31 Temperature Temperature Source Pulse Rate 107 H 110 H Pulse Rate [Apical] Pulse Rate from SpO2 Sensor 111 H 109 H Respiratory Rate 27 H 27 H Respiratory Effort / Characteristics Respiratory Depth Respiratory Pattern Blood Pressure 114/76 Blood Pressure Mean 88 Blood Pressure Position Pulse Oximetry 92 91 Oxygen Delivery Method Oxygen Flow Rate Fraction of Inspired Oxygen Sepsis Recent Fever Within 48 Hours Sepsis New/Unexplained Change in Mental Status Sepsis Action Taken by Nursing Oxygen Flow Rate - Titration Pulse Oximetry Post Tiitration GENERAL: alert, unwell appearing, well nourished, moderate distress, non-toxic EYE EXAM: normal conjunctiva, PERRL and EOM's grossly intact OROPHARYNX: no exudate, no erythema, lips, buccal mucosa, and tongue normal and mucous membranes are moist NECK: supple, no nuchal rigidity, no adenopathy, non-tender LUNGS: Decreased b/l to auscultation. Normal chest wall mechanics, no r/r, scattered expiratory wheeze, tachypnea, increased work of breathing, pursed lip expiration noted HEART: no murmurs, S1 normal and S2 normal, tachycardia with frequent trigeminy ABDOMEN: abdomen soft, non-tender, normo-active bowel sounds, no masses, no rebound or guarding. BACK: Back is symmetrical on inspection and there is no deformity, no midline tenderness, no CVA tenderness. SKIN: no rashes and no bruising UPPER EXTREMITIES: upper extremities are grossly normal. FROM, nml pulses b/l. LOWER EXTREMITIES: No pitting edema. FROM, nml pulses b/l. NEURO EXAM: Normal sensorium, cranial nerves II-XII grossly intact, normal s peech, no gross weakness of arms, no gross weakness of legs. Gross sensation intact. Course Administered Medications Sodium Chloride (Nss 1000ml) 1,000 mls @ 80 mls/hr IV .[id number] [facility] Stop: 08/22/22 15:40 Last Admin: 07/23/22 17:59 Dose: 80 mls/hr Documented By: JAKI Piperacillin Sod/Tazobactam (Sod 3.375 gm/ Dextrose) 115 mls @ 28.75 mls/hr IV Q8H [facility]; Protocol Stop: 07/30/22 16:59 Last Admin: 07/23/22 18:00 Dose: 28.8 mls/hr Documented By: JAKI Lidocaine (Lidocaine 5% 1 Patch) 1 patch TD QAM [facility] Stop: 08/22/22 13:14 Last Admin: 07/23/22 18:00 Dose: 1 patch Documented By: JAKI Discontinued Medications Albuterol (Albut/Ipratrop 3mg/0.5mg Neb 3 Ml Vial) 3 ml NEB NOW STA; Protocol Stop: 07/23/22 10:10 Last Admin: 07/23/22 10:15 Dose: 3 ml Documented By: Marcella Sodium Chloride (Nss 1000ml) 1,000 mls @ 80 mls/hr IV .[id number] [facility] Stop: 08/22/22 09:44 Last Admin: 07/23/22 14:59 Dose: Not Given Documented By: LUCY Piperacillin Sod/Tazobactam Sod (Zosyn) 4.5 gm in 120 mls @ 240 mls/hr IV NOW ONE Stop: 07/23/22 11:11 Last Infusion: 07/23/22 12:15 Dose: 0 mls/hr Documented By: Admin: 07/23/22 11:44 Dose: 240 mls/hr Documented By: MICHELLE Vancomycin HCl 1,000 mg/ (Sodium Chloride) 520 mls @ 200 mls/hr IV NOW ONE Stop: 07/23/22 13:47 Last Infusion: 07/23/22 17:28 Dose: 0 mls/hr Documented By: Admin: 07/23/22 12:28 Dose: 200 mls/hr Documented By: LUCY Ioversol (Optiray 300 500ml) 104 ml IV ONCE ONE Stop: 07/23/22 12:03 Last Admin: 07/23/22 12:03 Dose: 104 ml Documented By: BARON Miscellaneous (Patient's Height &/Or Weight Needed) 1 each N/A Q20M [facility] Stop: 08/22/22 10:44 Last Admin: 07/23/22 12:56 Dose: Not Given Documented By: Admin: 07/23/22 12:56 Dose: Not Given Documented By: Admin: 07/23/22 12:56 Dose: Not Given Documented By: Admin: 07/23/22 12:56 Dose: Not Given Documented By: Admin: 07/23/22 12:56 Dose: Not Given Documented By: Admin: 07/23/22 12:55 Dose: Not Given Documented By: Admin: 07/23/22 12:29 Dose: Not Given Documented By: LUCY Critical Care Time Critical Care Time: Yes Total Critical Care Time: 35 Critical care of 35 min performed to assess and manage high likelihood of life- threatening acute dyspnea, involving labs and imaging performed with assessment to evaluate acute dyspnea diagnosis with frequent reassessment. This time includes bedside time, treatment discussions with patient/family/consultants, documentation time and excludes procedure time. Medical Decision Making Differential Diagnosis Differential diagnoses includes but is not limited to pneumonia, bronchitis, COPD/Asthma exacerbation, pneumothorax, pulmonary embolism, congestive heart failure, acute coronary syndrome Medical Records Attestation: I reviewed the patient's medical records. Home Medications Current Medication List: was personally reviewed by me Laboratory Data Attestation: I reviewed the patient's lab results. Result diagrams: 07/23/22 09:45 07/23/22 09:45 Lab Results 07/23/22 07/23/22 07/23/22 Range/Units 09:45 09:45 09:45 WBC 10.76 (4.8-10.8) K/ul RBC 4.57 L (4.63-6.08) M/uL Hgb 11.6 L (14.0-18.0) g/dl Hct 35.7 L (40.1-51.0) % MCV 78.1 L (80.0-100.0) fL MCH 25.4 (25.0-34.0) pg MCHC 32.5 (32.0-36.0) g/dL RDW Std Deviation 52.0 H (36.4-46.3) fL RDW Coeff of Joshua 18.6 H (11.5-14.5) % Plt Count 498 H (130-400) K/uL MPV 9.0 L (9.4-12.4) fL Immature Gran % (Auto) 0.4 % Neut % (Auto) 86.3 % Lymph % (Auto) 5.9 % [place] % (Auto) 7.3 % Eos % (Auto) 0.0 % Baso % (Auto) 0.1 % Neut # (Auto) 9.29 H (1.4-6.5) K/uL Lymph # (Auto) 0.63 L (1.2-3.4) K/uL [place] # (Auto) 0.79 (0.24-0.82) K/uL Eos # (Auto) 0.00 (0-0.50) K/uL Baso # (Auto) 0.01 (0-0.2) K/uL Immature Gran # (Auto) 0.04 H (0.00-0.02) K/uL PT 13.2 H (9.0-12.0) Seconds INR 1.3 H (0.9-1.1) POC pH (7.35-7.45) POC pCO2 (35-46) mmHg POC pO2 (80-95) mmHg POC HCO3 (19-24) shelby/L POC Total CO2 (24-31) mmol/L POC Base Excess (-9-1.8) shelby/L POC ABG O2 Sat (90-95) % Sodium 135 L (136-145) mmol/L Potassium 4.5 (3.5-5.1) mmol/L Chloride 101 (98-107) mmol/L Carbon Dioxide 25 (21-32) mmol/L Anion Gap 9 (3-11) BUN 22 (6-23) mg/dl Creatinine 0.61 (0.6-1.4) mg/dl Est Cr Clr Drug Dosing Not Reportable Est GFR ( Amer) 111.6 ml/min Est GFR (Non-Af Amer) 96.3 ml/min BUN/Creatinine Ratio 36.1 H (10-20) Glucose 132 H (70-99(Fasting)) mg/dl Lactate (0.4-2.0) mmol/L Calcium 8.6 (8.5-10.1) mg/dl Magnesium 2.0 (1.7-2.4) mg/dl Total Bilirubin 1.2 H (0.2-1.0) mg/dl AST 26 (13-39) U/L ALT 28 (7-52) U/L Alkaline Phosphatase 146 H (34-104) U/L Troponin I High Sens 15.0 D (0-20) pg/ml Total Protein 6.4 (6.0-8.3) gm/dl Albumin 2.7 L (3.4-5.0) gm/dl Globulin 3.7 (2.5-4.0) gm/dl Albumin/Globulin Ratio 0.7 L (0.9-2) Procalcitonin (0-0.5) ng/ml Nasal Screen MRSA (PCR) (Negative) SARS-CoV-2 (PCR) (Negative) Influenza Type A (PCR) (Neg) Influenza Type B (PCR) (Neg) RSV (RT-PCR) (Neg) 07/23/22 07/23/22 07/23/22 Range/Units 09:45 09:45 10:00 WBC (4.8-10.8) K/ul RBC (4.63-6.08) M/uL Hgb (14.0-18.0) g/dl Hct (40.1-51.0) % MCV (80.0-100.0) fL MCH (25.0-34.0) pg MCHC (32.0-36.0) g/dL RDW Std Deviation (36.4-46.3) fL RDW Coeff of Joshua (11.5-14.5) % Plt Count (130-400) K/uL MPV (9.4-12.4) fL Immature Gran % (Auto) % Neut % (Auto) % Lymph % (Auto) % [place] % (Auto) % Eos % (Auto) % Baso % (Auto) % Neut # (Auto) (1.4-6.5) K/uL Lymph # (Auto) (1.2-3.4) K/uL [place] # (Auto) (0.24-0.82) K/uL Eos # (Auto) (0-0.50) K/uL Baso # (Auto) (0-0.2) K/uL Immature Gran # (Auto) (0.00-0.02) K/uL PT (9.0-12.0) Seconds INR (0.9-1.1) POC pH 7.46 H (7.35-7.45) POC pCO2 35 (35-46) mmHg POC pO2 73 L (80-95) mmHg POC HCO3 25 H (19-24) shelby/L POC Total CO2 26 (24-31) mmol/L POC Base Excess 1.0 (-9-1.8) shelby/L POC ABG O2 Sat 95.0 (90-95) % Sodium (136-145) mmol/L Potassium (3.5-5.1) mmol/L Chloride (98-107) mmol/L Carbon Dioxide (21-32) mmol/L Anion Gap (3-11) BUN (6-23) mg/dl Creatinine (0.6-1.4) mg/dl Est Cr Clr Drug Dosing Est GFR ( Amer) ml/min Est GFR (Non-Af Amer) ml/min BUN/Creatinine Ratio (10-20) Glucose (70-99(Fasting)) mg/dl Lactate 1.4 (0.4-2.0) mmol/L Calcium (8.5-10.1) mg/dl Magnesium (1.7-2.4) mg/dl Total Bilirubin (0.2-1.0) mg/dl AST (13-39) U/L ALT (7-52) U/L Alkaline Phosphatase (34-104) U/L Troponin I High Sens (0-20) pg/ml Total Protein (6.0-8.3) gm/dl Albumin (3.4-5.0) gm/dl Globulin (2.5-4.0) gm/dl Albumin/Globulin Ratio (0.9-2) Procalcitonin 0.17 (0-0.5) ng/ml Nasal Screen MRSA (PCR) (Negative) SARS-CoV-2 (PCR) (Negative) Influenza Type A (PCR) (Neg) Influenza Type B (PCR) (Neg) RSV (RT-PCR) (Neg) 07/23/22 07/23/22 Range/Units 11:35 11:35 WBC (4.8-10.8) K/ul RBC (4.63-6.08) M/uL Hgb (14.0-18.0) g/dl Hct (40.1-51.0) % MCV (80.0-100.0) fL MCH (25.0-34.0) pg MCHC (32.0-36.0) g/dL RDW Std Deviation (36.4-46.3) fL RDW Coeff of Joshua (11.5-14.5) % Plt Count (130-400) K/uL MPV (9.4-12.4) fL Immature Gran % (Auto) % Neut % (Auto) % Lymph % (Auto) % [place] % (Auto) % Eos % (Auto) % Baso % (Auto) % Neut # (Auto) (1.4-6.5) K/uL Lymph # (Auto) (1.2-3.4) K/uL [place] # (Auto) (0.24-0.82) K/uL Eos # (Auto) (0-0.50) K/uL Baso # (Auto) (0-0.2) K/uL Immature Gran # (Auto) (0.00-0.02) K/uL PT (9.0-12.0) Seconds INR (0.9-1.1) POC pH (7.35-7.45) POC pCO2 (35-46) mmHg POC pO2 (80-95) mmHg POC HCO3 (19-24) shelby/L POC Total CO2 (24-31) mmol/L POC Base Excess (-9-1.8) shelby/L POC ABG O2 Sat (90-95) % Sodium (136-145) mmol/L Potassium (3.5-5.1) mmol/L Chloride (98-107) mmol/L Carbon Dioxide (21-32) mmol/L Anion Gap (3-11) BUN (6-23) mg/dl Creatinine (0.6-1.4) mg/dl Est Cr Clr Drug Dosing Est GFR ( Amer) ml/min Est GFR (Non-Af Amer) ml/min BUN/Creatinine Ratio (10-20) Glucose (70-99(Fasting)) mg/dl Lactate (0.4-2.0) mmol/L Calcium (8.5-10.1) mg/dl Magnesium (1.7-2.4) mg/dl Total Bilirubin (0.2-1.0) mg/dl AST (13-39) U/L ALT (7-52) U/L Alkaline Phosphatase (34-104) U/L Troponin I High Sens (0-20) pg/ml Total Protein (6.0-8.3) gm/dl Albumin (3.4-5.0) gm/dl Globulin (2.5-4.0) gm/dl Albumin/Globulin Ratio (0.9-2) Procalcitonin (0-0.5) ng/ml Nasal Screen MRSA (PCR) Negative (Negative) SARS-CoV-2 (PCR) NEGATIVE (Negative) Influenza Type A (PCR) Negative (Neg) Influenza Type B (PCR) Negative (Neg) RSV (RT-PCR) Negative (Neg) Imaging Data Radiologist's Impression: Chest X-Ray 07/23/22 09:42 XR chest 1V portable CLINICAL HISTORY: Sepsis. Small cell lung cancer. COMPARISON STUDY: Chest CT June 25, 2022. FINDINGS: Left subclavian pacer/AICD is in place. There is no pneumothorax. A small right pleural effusion is present. Severe emphysema. Mass-like opacity within the right upper lobe has progressed since chest CT of June 25, 2022. Interstitial thickening is noted. Opacity at the medial right lung base has developed. Mediastinal widening likely corresponds to lymphadenopathy shown on CT. IMPRESSION: 1. Progression of mass-like opacity within the right upper lobe. This is likely neoplastic with possible postobstructive pneumonia. 2. Suspected mild pulmonary edema. Small right pleural effusion. 3. Emphysema. 4. Opacity at the medial right lung base. This could reflect atelectasis. ACT 112: Negative or not required by law. Electronically signed by: Seven Dyer M.D. 07/23/2022 10:21 AM Chest CTA 07/23/22 11:23 CT ANGIOGRAPHY OF THE CHEST, PULMONARY EMBOLUS PROTOCOL CLINICAL HISTORY: Sepsis. Small cell lung cancer. COMPARISON STUDY: Chest CT June 25, 2022. Chest radiograph performed earlier today. TECHNIQUE: Following IV administration of 104 mL of Optiray, helical axial images of the chest were obtained utilizing the pulmonary embolus protocol. Maximal intensity projections and sagittal and coronal reformats were viewed on an independent 3D workstation. IV contrast was administered without complication. Automated exposure control was utilized for the study. A dose lowering technique was utilized adhering to the principles of ALARA. CT DOSE: 274.20 mGy.cm FINDINGS: Left subclavian pacer/AICD is in place. There is occlusion of a subsegmental branch within the anterior segment of the right upper lobe shown on axial image 213 of 321. This could be due to a pulmonary embolus or occlusion of this vessel by adjacent tumor. No additional pulmonary emboli are noted. However, there is significant mass effect and narrowing upon multiple right- sided pulmonary arteries due to right hilar adenopathy and a central right lung mass. There is occlusion of the right superior pulmonary vein. There is no thoracic aortic dissection. A hiatal hernia is noted. Mild dilatation of the ascending aorta, measuring 4.1 cm. No pericardial effusion is present. A moderate to large right pleural effusion has significantly increased in size since CT of June 25, 2022. Numerous right-sided pleural nodules are noted. This represents a malignant effusion. There is a pathologic fracture with bony erosion of the posterior right second rib. Thoracic lymphadenopathy has significantly progressed since CT of June 25, 2022. Index right supraclavicular node measures 1.8 x 1.3 cm. This was previously normal in size. Conglomerate right paratracheal adenopathy measures 4.4 x 2.9 cm. Extensive right hilar adenopathy has progressed. Central right lung mass is difficult to differentiate from postobstructive pneumonia however the mass measures approximately 11.8 x 7.5 cm. This has increased in size significantly since prior CT. There is e mphysema. No significant abnormalities within the left lung are present. Visualized portions of the upper abdomen demonstrate increase in size of right adrenal lesions consistent with metastases. Upper abdominal adenopathy is partially imaged. This has progressed. IMPRESSION: 1. Occlusion of a subsegmental branch within the anterior segment of the right upper lobe. This could be due to a small pulmonary embolus or occlusion of this vessel by adjacent tumor. Extrinsic mass effect with narrowing of multiple right-sided pulmonary arteries due to lymphadenopathy and the central right lung mass. 2. Significant increase in size of the central right lung mass consistent with known small cell lung carcinoma. Associated postobstructive pneumonia. Increase in a moderate to large malignant right pleural effusion with progression of thoracic and upper abdominal lymphadenopathy, as detailed above. 3. Pathologic fracture of the posterior right second rib. ACT 112: Negative or not required by law. Electronically signed by: Seven Dyer M.D. 07/23/2022 12:41 PM ECG Data Attestation: I personally reviewed and interpreted this ECG as follows: Indication: + SOB/dyspnea Rate (beats per minute): 94 Rhythm: + normal sinus ECG Intervals/blocks: + Normal QRS and + Normal QT ECG [place]: + Left axis deviation ECG ST segments: + Nonspecific ST abnormalities ECG Findings: + PVCs and + [place] MDM Narrative An order was placed for continuous cardiac monitoring. The monitor shows a rate of __113___ with _sinus tachycardia_ rhythm. This is a 77-year-old male with a history of COPD and recent diagnosis of lung cancer who presents due to abrupt worsening shortness of breath. Patient does wear home oxygen chronically. On arrival by EMS patient's oxygen via nasal cannula have been increased to 4 to 5 L/min, and while he was not hypoxic he was still markedly tachypneic with increased work of breathing. Patient urgently placed on BiPAP with assistance of RT and appeared to have improvement of his work of breathing and tachypnea. He was unable to speak in longer sentences. No accompanying chest pain or leg swelling. He denied fevers, chills, or recent sick contact. Chest x-ray suggestive of pneumonia, and given prior read of lung cancer in the same area, concern for a postobstructive process. Patient with persistent tachycardia while in the emergency room. He was eventually able to be weaned off BiPAP and felt stable to go for CT imaging to also rule out PE and better evaluate the pneumonia. No clinical exam findings to suggest overt CHF. Patient was covered with IV antibiotics, and was given DuoNeb treatments while here. Patient did report feeling improved. Case discussed with hospitalist for additional evaluation and management. Impression & Plan Acute and chronic respiratory failure with hypoxia, COPD (chronic obstructive pulmonary disease), Dyspnea, Pneumonia Discharge Plan Visit Data Chief Complaint: Shortness of Breath/Dyspnea ED Provider: Deena Love Discharge Problem: Acute and chronic respiratory failure with hypoxia, COPD (chronic obstructive pulmonary disease), Dyspnea, Pneumonia Patient Disposition: Admitted As Inpatient Discharge Instructions Interventions: ED Discharge Assessment Last Done: 07/23/22 15:00
[2022-07-23] MEDS: Patient's HEIGHT &/or WEIGHT Needed SCH ×3 (12:29→12:56)
--- NOTE | 2022-07-23 12:43 | CT Scan Report ---
CT ANGIOGRAPHY OF THE CHEST, PULMONARY EMBOLUS PROTOCOL CLINICAL HISTORY: Sepsis. Small cell lung cancer. COMPARISON STUDY: Chest CT June 25, 2022. Chest radiograph performed earlier today. TECHNIQUE: Following IV administration of 104 mL of Optiray, helical axial images of the chest were o btained utilizing the pulmonary embolus protocol. Maximal intensity projections and sagittal and cor onal reformats were viewed on an independent 3D workstation. IV contrast was administered without co mplication. Automated exposure control was utilized for the study. A dose lowering technique was ut ilized adhering to the principles of ALARA. CT DOSE: 274.20 mGy.cm FINDINGS: Left subclavian pacer/AICD is in place. There is occlusion of a subsegmental branch within the anterior segment of the right upper lobe shown on axial image 213 of 321. This could be due to a pulmonary embolus or occlusion of this vessel by adjacent tumor. No additional pulmonary emboli are noted. However, there is significant mass effect and narrowing upon multiple right-sided pulmonary ar teries due to right hilar adenopathy and a central right lung mass. There is occlusion of the right s uperior pulmonary vein. There is no thoracic aortic dissection. A hiatal hernia is noted. Mild dilata tion of the ascending aorta, measuring 4.1 cm. No pericardial effusion is present. A moderate to larg e right pleural effusion has significantly increased in size since CT of June 25, 2022. Numerous rig ht-sided pleural nodules are noted. This represents a malignant effusion. There is a pathologic fract ure with bony erosion of the posterior right second rib. Thoracic lymphadenopathy has significantly p rogressed since CT of June 25, 2022. Index right supraclavicular node measures 1.8 x 1.3 cm. This wa s previously normal in size. Conglomerate right paratracheal adenopathy measures 4.4 x 2.9 cm. Extens cari right hilar adenopathy has progressed. Central right lung mass is difficult to differentiate from postobstructive pneumonia however the mass measures approximately 11.8 x 7.5 cm. This has increased in size significantly since prior CT. There is emphysema. No significant abnormalities within the lef t lung are present. Visualized portions of the upper abdomen demonstrate increase in size of right ad renal lesions consistent with metastases. Upper abdominal adenopathy is partially imaged. This has pr ogressed. IMPRESSION: 1. Occlusion of a subsegmental branch within the anterior segment of the right upper lobe. This could be due to a small pulmonary embolus or occlusion of this vessel by adjacent tumor. Extrinsic mass ef fect with narrowing of multiple right-sided pulmonary arteries due to lymphadenopathy and the central right lung mass. 2. Significant increase in size of the central right lung mass consistent with known small cell lung carcinoma. Associated postobstructive pneumonia. Increase in a moderate to large malignant right pleu ral effusion with progression of thoracic and upper abdominal lymphadenopathy, as detailed above. 3. Pathologic fracture of the posterior right second rib. ACT 112: Negative or not required by law. Electronically signed by: Seven Dyer M.D. 07/23/2022 12:41 PM
--- NOTE | 2022-07-23 13:05 | Pulmonary Consultation ---
Date of Consultation July 23, 2022 Assessment & Plan (1) Pleural effusion: We will attempt thoracentesis of right pleural effusion to help improve symptoms and also establish a diagnosis of metastatic carcinoma. (2) Acute and chronic respiratory failure with hypoxia: Maintain oxygen saturations of 88 to 92%. Hypoxia secondary to pneumonia, obstructive mass lesion and pleural effusion. (3) Small cell lung cancer: Recommend oncology and palliative care consult. (4) Postobstructive pneumonia: Continue with broad-spectrum antibiotics. Obtain MRSA screen and procalcitonin. History of Present Illness Reason for Consultation: Right pleural effusion in the setting of malignancy History of Present Illness 77-year-old male with a recently diagnosed small cell lung cancer and possible colon cancer presented to the hospital due to increasing shortness of breath. CT of the chest completed today demonstrated a right hilar mass and right-sided infiltrates. The right pleural effusion also appears to be increasing in size compared to June. He is chronically on oxygen since his last discharge and needing 3 L of oxygen at night and during the day. He also has a cough that is productive of sputum. He denies any fevers or chills. Official CT interpretation was occlusion of the subsegmental branch within the anterior segment of the right upper lobe which could be due to a small pulmonary embolism or occlusion of this vessel by adjacent tumor. Significant increase in size of the central right lung mass consistent with known small cell carcinoma. Increasing moderate amount of large malignant right pleural effusion. Of note, he did undergo an EBUS 06/25/2022 which revealed small cell carcinoma from station 2R. Flex sig of the colon demonstrated multiple fragments of colonic mucosa without carcinoma. Patient was started on vancomycin and Zosyn in the ER. Platelet count 498,000. INR 1.3. Patient is not on any antiplatelet medications. Allergies Allergy/AdvReac Type Severity Reaction Status Date / Time No Known Allergies Allergy Verified 07/10/22 13:53 Home Medications Medication Instructions Recorded Confirmed Type aspirin 81 mg tablet 81 mg PO DAILY #30 tabs 07/06/19 07/10/22 History multivitamin 1 tab PO DAILY 07/06/19 07/10/22 History vit C,E,zinc,copper-osskk4w 250 1 cap PO DAILY 07/06/19 07/10/22 History mg-lutein 5 mg-zeaxanthin 1 mg capsule (Ocuvite Adult 50 Plus) ibuprofen 600 mg tablet 1,200 mg PO QID PRN pain 02/08/22 07/10/22 History atorvastatin 40 mg tablet 40 mg PO DAILY #90 tabs 03/20/22 07/10/22 Rx fluticasone fur. 100 mcg-umeclid 1 inh inhalation DAILY #90 ea 03/20/22 07/10/22 Rx 62.5 mcg-vilant 25 mcg inhalat.powder (Trelegy Ellipta) metoprolol succinate 25 mg 25 mg PO DAILY #90 tabs 03/20/22 07/10/22 Rx tablet,extended release 24 hr omeprazole 20 mg capsule,delayed 20 mg PO DAILY #90 caps 03/20/22 07/10/22 Rx release albuterol sulfate 90 mcg/actuation See Rx Instructions inhalation QID 05/07/22 07/10/22 Rx aerosol inhaler PRN shortness of breath or wheezing #18 grams Flutter Valve #1 ea 07/05/22 07/10/22 Rx oxygen 3l per NC #1 ea 07/12/22 07/12/22 Rx Patient History Medical History Abnormal stress echo Mass of colon benign Pleural effusion Postobstructive pneumonia Small cell lung cancer Surgical History History of AAA (abdominal aortic aneurysm) repair History of cataract surgery History of pacemaker S/P ICD (internal cardiac defibrillator) procedure Family History Father Emphysema of lung Mother Lupus Sister Diabetes Denies family history of Ovarian cancer Prostate cancer Myocardial infarction Breast cancer Colorectal cancer Social History Smoking Status: Former smoker Tobacco Type: Cigarettes Age Started Using Tobacco: 16; Age Quit Using Tobacco: 71; packs per day: 1; Second Hand Exposure: No; Hx Alcohol Use: No Hx Substance Use: No Preferred Language: Guyanese Communication Ability: Effective Hearing Ability: Use of Hearing Aid [employer] Required: No Beliefs That Will Affect Care: None marital status: Current Living Situation: Spouse Current Living Situation Comment: Home with current occupational status: retired How many Children do You have: 2 Feels Safe at Home: Yes Childhood Exposure to Second-Hand Smoke: Yes caffeine: Yes Dental Care, Regularly: Yes Physical Activity Frequency: Daily Physical Activity Frequency Comment: Walking Seatbelt Use: always Sunscreen Use: Yes Assistive Devices: Oxygen - Continuous and Walker Review of Systems Review of Systems: All systems reviewed & are unremarkable except as noted in HPI & below Physical Exam Physical Exam: Constitutional: Thin appearing male in moderate distress. Eyes: Pupils are equal round and reactive to light. Conjunctivae are normal. Anicteric sclera. Ears nose, mouth and throat: Deferred. Neck: Trachea is midline. Visual inspection is normal. Respiratory: Diminished lung sounds on the right with crackles. Mild tachypnea. Cardiovascular: Regular rate and rhythm. No murmurs. No edema. Gastrointestinal: Normal bowel sounds, soft, nontender and nondistended. No hepatosplenomegaly noted. Musculoskeletal: No cyanosis. Patient is able to move all extremities. Skin: No rashes, warm dry and intact. Neurologic: No obvious focal neurological deficits seen. Psychiatric: Alert and oriented x3 with a euthymic affect. Results & Data Results & Data ([facility]) Vital Signs (Past 12 Hours) Vital Signs Temp Pulse Pulse Resp BP Pulse Ox O2 Del Method 07/23/22 11:02 117 H 34 H 92 BiPAP 07/23/22 11:02 111/72 07/23/22 11:00 117 H 34 H 91 BiPAP 07/23/22 10:31 89 28 H 92 BiPAP 07/23/22 10:31 91/61 L 07/23/22 10:30 49 L 24 92 BiPAP 07/23/22 10:00 118 H 37 H 94 BiPAP 07/23/22 10:00 96/63 L 07/23/22 09:37 122 H 38 H 92 Nasal Cannula 07/23/22 09:37 119/94 07/23/22 09:34 96 Non-rebreather 07/23/22 10:00 BiPAP 07/23/22 11:00 92 BiPAP 07/23/22 10:30 92 BiPAP 07/23/22 10:00 94 BiPAP 07/23/22 09:42 90 Nasal Cannula, BiPAP 07/23/22 09:42 Nasal Cannula 07/23/22 09:35 36.8 C 120 H 50 H 119/94 90 Nasal Cannula 07/23/22 10:16 102 H 32 H 94 BiPAP 07/23/22 10:00 117 H 36 H 93 O2 Flow Rate FiO2 07/23/22 11:02 07/23/22 11:02 07/23/22 11:00 07/23/22 10:31 07/23/22 10:31 07/23/22 10:30 07/23/22 10:00 07/23/22 10:00 07/23/22 09:37 4 07/23/22 09:37 07/23/22 09:34 10 07/23/22 10:00 07/23/22 11:00 07/23/22 10:30 07/23/22 10:00 10 07/23/22 09:42 4 07/23/22 09:42 4 07/23/22 09:35 4 07/23/22 10:16 30 07/23/22 10:00 35 PG Care Time/CCT Total # of Minutes Spent Total Time Spent with Patient: Total time spent is greater than 50% in coordination of care (as documented) at patient's floor/unit and/or counseling patient: Coding Level of Care Code 24254 Initial Inpt Care Lvl 3 Diagnoses Pleural effusion J90 Acute and chronic respiratory failure with hypoxia J96.21 Small cell lung cancer C34.90 Postobstructive pneumonia J18.9
[2022-07-23 13:17] LABS: Influenza A virus by PCR Negative (Neg); Influenza B virus by PCR Negative (Neg); RSV by PCR Negative (Neg); SARS CoV2 RNA(COVID-19) InHosp NEGATIVE (Negative)
--- NOTE | 2022-07-23 14:21 | Procedure Note ---
Procedure Note Date of Service July 23, 2022 Note INDICATION: Right pleural effusion PROCEDURE: Right thoracentesis DATE: 07/22/2022 TIME: 13:57 PROVIDER: Aniket Marr PA-C CONSENT: Was obtained prior to the procedure by Aniket Marr PA-C as delegated by Dr. Tomlinson and placed on the chart PROCEDURE SUMMARY: Bedside ultra sound was performed to identify an appropriate puncture site. Images were saved to the [employer] system. A time out was performed. The patient was prepped and draped in a sterile manner using chlorhexidine scrub after the appropriate level was confirmed by ultrasound. 1% lidocaine was used to numb the region. A finder needle was then used under negative pressure to locate fluid and instill lidocaine into the pleural space. A small amount of pleural fluid was obtained but then flow was obstructed. Re-approach was then made with similar results. The patient was stable and had no change in vital signs including no drop in oxygen saturation. No immediate complications were noted during the procedure. Dr. Tomlinson was contacted after the procedure with results. A post-procedure chest x-ray was completed and reviewed at bedside by this provider and no pneumothorax was identified. The patient tolerated the procedure well with no shortness of breath, no hypotension, no increase in heart rate, and no other acute symptoms. Coding CPT Codes Pulmonary/Thoracic - Pulmonary and Thoracic: 32659 Thoracentesis w imaging ([id number]) Pulmonary/Thoracic - Pulmonary and Thoracic: 82118 US, Chest, real time with imaging documentation ([id number]) [facility] [place] Procedure Codes ([place]) Pulmonary/Thoracic Procedure 1: Pulmonary and Thoracic: 32322 Thoracentesis w imaging Procedure 2: Pulmonary and Thoracic: 33977 US, Chest, real time with imaging documentation
--- NOTE | 2022-07-23 14:34 | XRay Report ---
XR chest 1V portable CLINICAL HISTORY: Failed right thoracentesis COMPARISON STUDY: Chest radiograph and chest CT performed earlier today. FINDINGS: Left subclavian pacer/AICD is in place. There is no pneumothorax. Moderate right pleural ef fusion is again noted. Right upper lobe masslike opacity is noted. Interstitial thickening has slight ly improved. Emphysema is better depicted on chest CT. Mediastinal widening is unchanged due to lymph adenopathy, as shown on CT. IMPRESSION: 1. No pneumothorax. Moderate right pleural effusion. 2. Slight decrease in interstitial pulmonary edema. 3. Right upper lobe mass with suspected post obstructive pneumonia. Mediastinal lymphadenopathy, bett er depicted on chest CT. ACT 112: Negative or not required by law. Electronically signed by: Seven Dyer M.D. 07/23/2022 2:32 PM
[2022-07-23] MEDS ORDERED: ACETAMINOPHEN 325 MG TAB PO PRN (15:41)
[2022-07-23] MEDS ORDERED: ONDANSETRON INJ 2 MG/ML 2 ML VIAL IV PRN (15:41)
[2022-07-23] MEDS: SODIUM CHLORIDE 0.9% 1000ML 1,000 ML IV SCH (17:59)
[2022-07-23] MEDS: LIDOCAINE 5% 1 PATCH TD SCH (18:00)
[2022-07-23] MEDS: PIPERACILLIN/TAZOBACTAM 3.375 GM in DEXTROSE 5% 100 ML IV SCH (18:00)
[2022-07-24] MEDS: PIPERACILLIN/TAZOBACTAM 3.375 GM in DEXTROSE 5% 100 ML IV SCH ×3 (01:19→17:15)
[2022-07-24] MEDS: SODIUM CHLORIDE 0.9% 1000ML 1,000 ML IV SCH ×2 (04:17→16:03)
[2022-07-24 06:59] LABS: Hematocrit (blood only) 31.7 % (40.1-51.0); Hemoglobin 10.2 g/dl (14.0-18.0); Mean Corpuscular Hemoglobin 25.3 pg (25.0-34.0); Mean Corpuscular Hgb Conc 32.2 g/dL (32.0-36.0); Mean Corpuscular Volume 78.7 fL (80.0-100.0); Mean Platelet Volume 8.5 fL (9.4-12.4); Platelet Count 444 K/uL (130-400); RDW Coefficient of Variation 18.6 % (11.5-14.5); RDW Standard Deviation 52.3 fL (36.4-46.3); Red Blood Count 4.03 M/uL (4.63-6.08); White Blood Count 9.95 K/ul (4.8-10.8)
--- NOTE | 2022-07-24 07:43 | Hospitalist Progress Note ---
Date of Service July 24, 2022 Assessment & Plan (1) Small cell lung cancer: Plan: Small Cell Lung Cancer - Diagnosed on 06/25 on bronchoscopy. Has decided not to pursue treatment. - CTA on admission indicates worsening cancer with large right-sided pleural effusion. - Pulm consulted; thoracentesis performed 07/23 yesterday, but did not yield enough pleural fluid to send. No plans for future procedures. - CXR shows small right sided pneumothorax post thoracentesis - Supplemental O2 as able. No CPAP/BiPap per patient wishes. Would move to comfort care if his respiratory status decompensates. - Lidocaine patch for pathologic fracture - Discussed goals of care and palliative also saw him. Ultimate plan is home with hospice. Pleural Effusion -Right sided pleural effusion that is most likely malignant - Afebrile, but with recent hospitalization in addition to CT showing a possible postobstructive pneumonia; we will continue to treat with Zosyn for hospital acquired pneumonia and plan to transition to ciprofloxacin once he is ready for discharge Anemia Hemoglobin= 10.2, was 11.6 on admission. Microcytic- most likely iron def vs anemia of chronic disease Will hold off on further workup at this time CAD No chest pain. BMS to mid-LAD in 02/2015. - ASA currently being held from thoracentesis - Continue beta-amaya History of CVA During last admission. Received tPA. Brain MRI on 06/25 showed acute infarct within the left parietal and posterior left temporal lobes and 1.1 cm acute or subacute infarct within the inferior right cerebellum. - Hold ASA as above Pacemaker Medtronic ICD placed in 03/2017 for primary prevention (ie, must have had prolonged EF <= 35%) as well as sinus note dysfunction. - Cardiology consulted to turn on ICD COPD - Continue home maintenance inhaler (or formulary equivalent) - DuoNebs PRN Benign Hypertension - Continue home beta-amaya DVT ppx: Lovenox 40 mg SQ daily DNR/DNI - Does not want to be hooked up to any machines, including CPAP/BiPap. Would prefer transition to comfort measures only if he were to decompensate. (2) CAD (coronary artery disease): (3) Acute CVA (cerebrovascular accident): (4) Pacemaker: (5) COPD (chronic obstructive pulmonary disease): (6) Benign hypertension: Admission and Anticipated Discharge Date Admission Date: July 23, 2022 Supervising Physician Co-Signing Physician Notes Attending attestation Pt seen and examined in concert with Dr. Tavarez. In agreement with the documented findings as noted in the resident documentation with any exceptions or additions as noted here. Ongoing dyspnea controlled on supplemental O2 without acute worsening. Family at bedside with discussion of goals of care supplemented with conversation w/ Dr Mcgowan for accelerated discharge to home w/ hospice. VS, nursing notes reviewed. On examination, S1/S2 nl RRR no MCG. decreased BS throughout, worse at the b/l bases. Abd NT/ND BS+ve Pleural effusion s/p thoracentesis w/ pneumothorax - pulmonology, palliative consult - goals of care to include procedure status for ongoing pneumothorax. Lidocaine patch as noted. Goal of home w/ home hospice. Infectious effusion/pneumonia - continue Zosyn with transition to PO abx on discharge to home hospice Else see resident documentation as noted. Reviewed goals of care and code status with resident team. Aurea Johansen is a 77 year old male with a past medical history of small cell lung cancer, CAD, COPD, AAA, PVCs with pacemaker, COPD, HFrEF. He was recently admitted from 06/23-06/29 with a diagnosis of left partial stoke and a new diagnosis of metastatic small cell lung cancer. He was also found to have a colon mass, bx taken were benign, but GI feels that there could be cancerous cells deeper; he declines further colonoscopy. He was seen by oncology but has decided not to pursue any further treatment. About a week ago he began to have worsening dyspnea. He was on 2L but increased to 3L, which did not help his dyspnea promoting him to come to the ED. He continues to be dyspneic today. He had a thoracentesis yesterday afternoon, with minimal pleural fluid yielded. He does endorse some chronic hip pain, but no chest or rib pain. He has a decreased appetite. Physical Exam Physical Exam: Constitutional: well-appearing, no acute distress HEENT: NCAT, no conjunctival injection CV: regular rhythm, no murmur appreciated, extremities well-perfused, no LE edema Resp: diminished breath sounds, no wheezes/rales/rhonchi appreciated, increased work of breathing, accessory muscle use GI: soft, nondistended, nontender, BS normoactive MSK: no gross deformities appreciated Skin: warm, dry, no rash appreciated Neuro: alert, oriented, no focal neurologic deficit appreciated Results & Data Results & Data ([facility]) Vital Signs (Past 12 Hours) Vital Signs Temp Pulse Pulse Resp BP Pulse Ox O2 Del Method 07/24/22 07:17 116 H 07/24/22 03:23 36.4 C L 102 H 20 107/66 94 Nasal Cannula 07/24/22 01:27 113 H 07/23/22 23:23 36.5 C 111 H 19 112/71 92 Room Air O2 Flow Rate 07/24/22 07:17 07/24/22 03:23 4 07/24/22 01:27 07/23/22 23:[address] ANGIOGRAPHY OF THE CHEST, PULMONARY EMBOLUS PROTOCOL IMPRESSION: 1. Occlusion of a subsegmental branch within the anterior segment of the right upper lobe. This could be due to a small pulmonary embolus or occlusion of this vessel by adjacent tumor. Extrinsic mass effect with narrowing of multiple right-sided pulmonary arteries due to lymphadenopathy and the central right lung mass. 2. Significant increase in size of the central right lung mass consistent with known small cell lung carcinoma. Associated postobstructive pneumonia. Increase in a moderate to large malignant right pleural effusion with progression of thoracic and upper abdominal lymphadenopathy, as detailed above. 3. Pathologic fracture of the posterior right second rib. Resident Activity Tracking Resident Involvement: Resident Care Provided Care Provided: [facility]
[2022-07-24] MEDS: ASPIRIN 81 MG ECTAB PO SCH (07:46)
[2022-07-24] MEDS: ENOXAPARIN INJ 40 MG/0.4 ML SYR SQ SCH (07:46)
[2022-07-24] MEDS: METOPROLOL SUCC 25MG EXT REL TAB PO SCH (07:46)
[2022-07-24] MEDS: UMECLIDINIUM/VILANTEROL 62.5/25MCG 7 PUFFS/INHALER INH SCH (07:47)
[2022-07-24] MEDS: LIDOCAINE 5% 1 PATCH TD SCH (07:47)
[2022-07-24] MEDS: FLUTICASONE FUROATE 100MCG 14 PUFFS/INHALER INH SCH (07:47)
[2022-07-24 07:55] LABS: BUN Creatinine Ratio 37.7 (10-20); Calcium 8.2 mg/dl (8.5-10.1); Creatinine Clr Calc Pharmacy 88.2 ml/min; Est GFR (African American) 118.3 ml/min; Est GFR (Non-African American) 102.1 ml/min; Magnesium 1.8 mg/dl (1.7-2.4); Potassium 3.8 mmol/L (3.5-5.1)
--- NOTE | 2022-07-24 09:02 | XRay Report ---
XR chest 1V portable HISTORY: Check for pneumothorax COMPARISON: Chest 07/23/2022. FINDINGS: There is a small right apical pneumothorax with a maximal pleural gap of 2 cm. Right upper lobe mass and postobstructive pneumonitis is again noted. Small right pleural effusion persists. Left -sided pacemaker/defibrillator. The left lung is essentially clear. Emphysema. The heart remains mild ly enlarged. Mediastinal lymphadenopathy is better appreciated on the prior CT examination. IMPRESSION: 1. Small right pneumothorax which has increased in size. 2. Small right pleural effusion, unchanged. 3. Right upper lobe mass with postobstructive pneumonitis again noted. 4. This report was called/faxed to the ordering physician following dictation. ACT 112: Negative or not required by law. Electronically signed by: Jorge Berkowitz M.D. 07/24/2022 9:01 AM
--- NOTE | 2022-07-24 11:25 | Electrocardiogram Report ---
Test Reason : Blood Pressure : / mmHG Vent. Rate : 118 BPM Atrial Rate : 119 BPM P-R Int : 160 ms QRS Dur : 088 ms QT Int : 320 ms P-R-T Axes : 073 015 065 degrees QTc Int : 448 ms Poor data quality, interpretation may be adversely affected Sinus rhythm with frequent and consecutive ventricular ectopy Abnormal ECG When compared with ECG of 23-JUN-2022 08:48, Criteria for Inferior infarct are no longer Present Confirmed by Fidel Kramer ([id number]) on 07/24/2022 11:25:42 AM Referred By: REFERRED SELF Confirmed By:Dion Kramer
--- NOTE | 2022-07-24 14:38 | XRay Report ---
XR chest 1V portable HISTORY: 77 years-old Male follow up ptx follow-up study in a patient with a right-sided pneumothora x COMPARISON: Chest radiograph 07/24/2022 TECHNIQUE: Portable AP view of the chest FINDINGS: Cardiac silhouette is enlarged. Left subclavian pacer/AICD redemonstrated. Right-sided hydropneumotho rax redemonstrated. The pneumothorax component has mildly increased in size, now with pleural separat ion of 3 cm, previously 2.0 cm. Right upper lobe mass with postobstructive pneumonitis is again noted . Persistent right basilar opacities. The left lung is predominantly clear. Degenerative changes of t he shoulders and spine with levoscoliosis of the thoracolumbar junction. IMPRESSION: 1. Right-sided hydropneumothorax redemonstrated. The pneumothorax component has mildly increased in s ize from the study obtained this morning. 2. Right upper lobe mass with postobstructive pneumonitis again noted. ACT 112: Negative or not required by law. The above report was generated using voice recognition software. It may contain grammatical, syntax o r spelling errors. Electronically signed by: Eliezer Champagne M.D. 07/24/2022 2:37 PM
--- NOTE | 2022-07-24 15:07 | Palliative Care Consultation ---
Date of Consultation July 24, 2022 Assessment & Plan (1) Dyspnea: Improved with increased oxygen flow. We talked about using oxygen to relieve symptoms and also the use of opioids for relief of air hunger. He has oxygen at home. (2) Weakness: generalized with advanced small cell lung cancer. It would be difficult for his to get him out of bed. Their son lives nearby and can help with care but in general, he is pretty much bedbound. (3) Palliative care encounter: Mr. Cotto is very clear that he does not want any further treatment or workup for his cancer. He realizes that he is approaching his dying time and would prefer to be at home for his . He denies fears or worries. He has a very supportive family and they report that they have a strong support network also. We discussed hospice care and what would be involved with that to help manage his symptoms and allow him to be at home. He does not want to return to the hospital. We discussed shift of care from disease management to symptom management and focusing on medications for his comfort. At this time, they would prefer to continue antibiotics orally at home. If his ICD is still active, it would be a good idea to have that deactivated before discharge. Hospitalist team is aware. Discussed with case management. (4) Small cell lung cancer: (5) Postobstructive pneumonia: (6) Heart failure with reduced ejection fraction: (7) COPD (chronic obstructive pulmonary disease): History of Present Illness Reason for Consultation: goals of care Requesting Physician: Dr. Tavarez Attending Physician: Jatin Black MD History of Present Illness 77 yo gentleman who was diagnosed with small cell lung cancer last month when he presented with a CVA. He has a history of CAD with pacemaker and reduced ejection fraction. He did have an ICD placed in 2017. He also has COPD. He was admitted with increased shortness of breath. CT showed noticeable increase in the size of his right lung tumor which appears to have some mass effect. He was thought to have a large pleural effusion but only a small amount of fluid was removed on thoracentesis with multiple attemps due to tissue obstruction. He is being treated for post obstructive pneumonia. He tells me that he has had increased weakness at home, decreased appetite and nearly 20lb weight loss since January. This was all prior to his CVA. He now requires assistance for transfers and gets short of breath with minimal exertion. This morning he had increased shortness of breath at rest and had been on high flow O2 at 15L but is now down to 4L. Allergies Allergy/AdvReac Type Severity Reaction Status Date / Time No Known Allergies Allergy Verified 07/10/22 13:53 Home Medications Medication Instructions Recorded Confirmed Type aspirin 81 mg tablet 81 mg PO DAILY #30 tabs 07/06/19 07/10/22 History multivitamin 1 tab PO DAILY 07/06/19 07/10/22 History vit C,E,zinc,copper-fsskh9d 250 1 cap PO DAILY 07/06/19 07/10/22 History mg-lutein 5 mg-zeaxanthin 1 mg capsule (Ocuvite Adult 50 Plus) ibuprofen 600 mg tablet 1,200 mg PO QID PRN pain 02/08/22 07/10/22 History atorvastatin 40 mg tablet 40 mg PO DAILY #90 tabs 03/20/22 07/10/22 Rx fluticasone fur. 100 mcg-umeclid 1 inh inhalation DAILY #90 ea 03/20/22 07/10/22 Rx 62.5 mcg-vilant 25 mcg inhalat.powder (Trelegy Ellipta) metoprolol succinate 25 mg 25 mg PO DAILY #90 tabs 03/20/22 07/10/22 Rx tablet,extended release 24 hr omeprazole 20 mg capsule,delayed 20 mg PO DAILY #90 caps 03/20/22 07/10/22 Rx release albuterol sulfate 90 mcg/actuation See Rx Instructions inhalation QID 05/07/22 07/10/22 Rx aerosol inhaler PRN shortness of breath or wheezing #18 grams Flutter Valve #1 ea 07/05/22 07/10/22 Rx oxygen 3l per NC #1 ea 07/12/22 07/12/22 Rx Patient History Medical History Abnormal stress echo Mass of colon benign Pleural effusion Postobstructive pneumonia Small cell lung cancer Surgical History History of AAA (abdominal aortic aneurysm) repair History of cataract surgery History of pacemaker S/P ICD (internal cardiac defibrillator) procedure Family History Father Emphysema of lung Mother Lupus Sister Diabetes Denies family history of Ovarian cancer Prostate cancer Myocardial infarction Breast cancer Colorectal cancer Social History Smoking Status: Former smoker Tobacco Type: Cigarettes Age Started Using Tobacco: 16; Age Quit Using Tobacco: 71; packs per day: 1; Second Hand Exposure: No; Hx Alcohol Use: No Hx Substance Use: No Preferred Language: Croatian Communication Ability: Impaired Hearing Ability: Use of Hearing Aid [employer] Required: No Beliefs That Will Affect Care: None marital status: Current Living Situation: Spouse Current Living Situation Comment: Home with current occupational status: retired How many Children do You have: 2 Feels Safe at Home: Yes Childhood Exposure to Second-Hand Smoke: Yes caffeine: Yes Dental Care, Regularly: Yes Physical Activity Frequency: Daily Physical Activity Frequency Comment: Walking Seatbelt Use: always Sunscreen Use: Yes Assistive Devices: Oxygen - Continuous and Walker Review of Systems Review of Systems: ESAS Pain 1/3 Dyspnea 2/3 NAusea 0/3 Anorexia 3/3 Fatigue 2/3 Drowsiness 0/3 PPS 40% Physical Exam Constitutional: + ill appearing and + thin ENMT: Mouth: + dry oral mucous membranes Respiratory: + uses accessory muscles and + tachypneic Cardiovascular: no edema Musculoskeletal: Extremities: + muscle atrophy Skin: warm and dry Neurologic: Speech / Cognition: normal cognition Genitourinary: continent Results & Data ([facility]) Vital Signs (Past 12 Hours) Vital Signs Temp Pulse Pulse Resp BP BP Pulse Ox 07/24/22 14:38 109 H 07/24/22 12:52 07/24/22 11:17 98.2 F 96 H 16 104/71 97 07/24/22 10:36 96 07/24/22 09:53 07/24/22 09:52 24 89 L 07/24/22 09:46 07/24/22 07:44 97.9 F 103 H 22 103/60 90 07/24/22 07:17 116 H 07/24/22 03:23 97.5 F L 102 H 20 107/66 94 Pulse Ox O2 Del Method O2 Flow Rate 07/24/22 14:38 07/24/22 12:52 Oxymask 15 07/24/22 11:17 07/24/22 10:36 Oxymask 15 07/24/22 09:53 89 L 07/24/22 09:52 Nasal Cannula 4 07/24/22 09:46 Nasal Cannula 4 07/24/22 07:44 Nasal Cannula 4 07/24/22 07:17 07/24/22 03:23 Nasal Cannula 4 PG Care Time/CCT Total # of Minutes Spent Total Time Spent: 58 Total Time Spent with Patient: Total time spent is greater than 50% in coordination of care (as documented) at patient's floor/unit and/or counseling patient: goals of care, hospice, symptom management, patient and family education and support Coding Level of Care Code 63258 Initial Inpt Care Lvl 2 Diagnoses Dyspnea R06.00 Weakness R53.1 Palliative care encounter Z51.5 Small cell lung cancer C34.90 Postobstructive pneumonia J18.9 Heart failure with reduced ejection fraction I50.20 COPD (chronic obstructive pulmonary disease) J44.9
--- NOTE | 2022-07-24 15:27 | Pulmonology Progress Note ---
Date of Service July 24, 2022 Assessment & Plan (1) Pleural effusion: (2) Acute and chronic respiratory failure with hypoxia: (3) Small cell lung cancer: (4) Postobstructive pneumonia: (5) Hydropneumothorax: Plan Patient has been adamant that he does not wish to pursue any further procedures or treatment specific for the cancer. Discussed with the palliative care attending. Patient plans to transition to home with hospice tomorrow which I think is very appropriate. Pulmonary will sign off. Thank you for the consultation and allowing us to participate in the care of this patient. Admission and Anticipated Discharge Date Admission Date: July 23, 2022 Subjective Patient's condition overall unchanged from yesterday. He still has shortness of breath that is quite severe with any exertion. He is currently on oxygen mask. His family is at bedside. He had a discussion with the palliative care physician earlier today. He would like to go home on hospice tomorrow. He does not receptive to comfort measures at this time. He did say that he is willing to take a dose of morphine for shortness of breath. He denies any chest pain. Review of Systems Review of Systems: All systems reviewed & are unremarkable except as noted in HPI & below Physical Exam Physical Exam: Constitutional: Thin appearing male in moderate distress. Eyes: Pupils are equal round and reactive to light. Conjunctivae are normal. Anicteric sclera. Ears nose, mouth and throat: Deferred. Neck: Trachea is midline. Visual inspection is normal. Respiratory: Diminished lung sounds on the right with crackles. Mild tachypnea. Cardiovascular: Regular rate and rhythm. No murmurs. No edema. Gastrointestinal: Normal bowel sounds, soft, nontender and nondistended. No hepatosplenomegaly noted. Musculoskeletal: No cyanosis. Patient is able to move all extremities. Skin: No rashes, warm dry and intact. Neurologic: No obvious focal neurological deficits seen. Psychiatric: Alert and oriented x3 with a euthymic affect. Results & Data Results & Data ([facility]) Vital Signs (Past 12 Hours) Vital Signs Temp Pulse Pulse Resp BP BP Pulse Ox 07/24/22 14:38 109 H 07/24/22 12:52 07/24/22 11:17 36.8 C 96 H 16 104/71 97 07/24/22 10:36 96 07/24/22 09:53 07/24/22 09:52 24 89 L 07/24/22 09:46 07/24/22 07:44 36.6 C 103 H 22 103/60 90 07/24/22 07:17 116 H Pulse Ox O2 Del Method O2 Flow Rate 07/24/22 14:38 07/24/22 12:52 Oxymask 15 07/24/22 11:17 07/24/22 10:36 Oxymask 15 07/24/22 09:53 89 L 07/24/22 09:52 Nasal Cannula 4 07/24/22 09:46 Nasal Cannula 4 07/24/22 07:44 Nasal Cannula 4 07/24/22 07:17 PG Care Time/CCT Total # of Minutes Spent Total Time Spent with Patient: Total time spent is greater than 50% in coordination of care (as documented) at patient's floor/unit and/or counseling patient: Coding Level of Care Code 82701 Subseq Hosp Care Lvl 2 Diagnoses Pleural effusion J90 Acute and chronic respiratory failure with hypoxia J96.21 Small cell lung cancer C34.90 Postobstructive pneumonia J18.9 Hydropneumothorax J94.8
[2022-07-24] MEDS: MoRPHine SULFATE 5 MG/0.25 ML UDP PO PRN (15:51)
--- NOTE | 2022-07-24 16:47 | Communication Note ---
Date of Service: July 24, 2022 ICD detection was deactivated at the patient and family request. The ICD will not provide any life saving therapy currently. Family and patient aware.
[2022-07-24] MEDS ORDERED: LORazepam 0.5 MG TAB PO STA (19:29)
[2022-07-24] MEDS ORDERED: LORazepam 0.5 MG in SYRINGE 0.25 ML IV STA (19:30)
[2022-07-25] MEDS: PIPERACILLIN/TAZOBACTAM 3.375 GM in DEXTROSE 5% 100 ML IV SCH ×2 (00:17→08:46)
[2022-07-25] MEDS: SODIUM CHLORIDE 0.9% 1000ML 1,000 ML IV SCH (04:31)
--- NOTE | 2022-07-25 06:42 | Hospitalist Progress Note ---
Date of Service July 25, 2022 Assessment & Plan (1) Small cell lung cancer: Plan: Small Cell Lung Cancer - Diagnosed on 06/25 on bronchoscopy. Has decided not to pursue treatment. - CTA on admission indicates worsening cancer with large right-sided pleural effusion. - Pulm consulted; thoracentesis performed 07/23 yesterday, but did not yield enough pleural fluid to send. No plans for future procedures. - CXR shows small right sided pneumothorax post thoracentesis - Supplemental O2 as able. No CPAP/BiPap per patient wishes. Would move to comfort care if his respiratory status decompensates. - Lidocaine patch for pathologic fracture - Discussed goals of care and palliative also saw him. Ultimate plan is home with hospice. Pleural Effusion -Right sided pleural effusion that is most likely malignant - Afebrile, but with recent hospitalization in addition to CT showing a possible postobstructive pneumonia; we will continue to treat with Zosyn for hospital acquired pneumonia and plan to transition to ciprofloxacin once he is ready for discharge Anemia Hemoglobin= 10.2, was 11.6 on admission. Microcytic- most likely iron def vs anemia of chronic disease Will hold off on further workup at this time CAD No chest pain. BMS to mid-LAD in 02/2015. - ASA currently being held from thoracentesis - Continue beta-amaya History of CVA During last admission. Received tPA. Brain MRI on 06/25 showed acute infarct within the left parietal and posterior left temporal lobes and 1.1 cm acute or subacute infarct within the inferior right cerebellum. - Hold ASA as above Pacemaker Medtronic ICD placed in 03/2017 for primary prevention (ie, must have had prolonged EF <= 35%) as well as sinus note dysfunction. - Cardiology consulted to turn on ICD COPD - Continue home maintenance inhaler (or formulary equivalent) - DuoNebs PRN Benign Hypertension - Continue home beta-amaya DVT ppx: Lovenox 40 mg SQ daily DNR/DNI - Does not want to be hooked up to any machines, including CPAP/BiPap. Would prefer transition to comfort measures only if he were to decompensate. (2) CAD (coronary artery disease): (3) Acute CVA (cerebrovascular accident): (4) Pacemaker: (5) COPD (chronic obstructive pulmonary disease): (6) Benign hypertension: Admission and Anticipated Discharge Date Admission Date: July 23, 2022 Physical Exam Physical Exam: Constitutional: well-appearing, no acute distress HEENT: NCAT, no conjunctival injection CV: regular rhythm, no murmur appreciated, extremities well-perfused, no LE edema Resp: diminished breath sounds, no wheezes/rales/rhonchi appreciated, increased work of breathing, accessory muscle use GI: soft, nondistended, nontender, BS normoactive MSK: no gross deformities appreciated Skin: warm, dry, no rash appreciated Neuro: alert, oriented, no focal neurologic deficit appreciated Results & Data Results & Data ([facility]) Vital Signs (Past 12 Hours) Vital Signs Temp Pulse Pulse Resp BP BP Pulse Ox 07/25/22 05:30 22 100 07/25/22 05:00 22 100 07/25/22 04:30 22 100 07/25/22 04:00 22 100 07/25/22 03:30 22 100 07/25/22 03:14 36.8 C 110 H 22 108/72 100 07/25/22 03:32 07/25/22 03:00 22 99 07/24/22 23:59 118 H 07/25/22 00:30 22 99 07/25/22 00:00 22 99 07/24/22 23:30 22 99 07/24/22 23:00 22 99 07/24/22 22:30 22 99 07/24/22 22:00 22 99 07/24/22 21:30 22 99 07/24/22 23:38 37.5 C 112 H 22 101/66 99 07/24/22 21:00 20 98 07/24/22 20:30 20 98 07/24/22 20:00 20 98 07/24/22 19:30 20 98 07/24/22 19:00 20 98 07/24/22 20:48 36.4 C L 103 H 20 109/65 98 O2 Del Method O2 Flow Rate FiO2 07/25/22 05:30 Non-rebreather 07/25/22 05:00 Non-rebreather 07/25/22 04:30 Non-rebreather 07/25/22 04:00 Non-rebreather 07/25/22 03:30 Non-rebreather 07/25/22 03:14 Non-rebreather 07/25/22 03:32 Non-rebreather 07/25/22 03:00 Non-rebreather 15 30 07/24/22 23:59 07/25/22 00:30 Non-rebreather 15 30 07/25/22 00:00 Non-rebreather 15 30 07/24/22 23:30 Non-rebreather 15 30 07/24/22 23:00 Non-rebreather 15 30 07/24/22 22:30 Non-rebreather 15 30 07/24/22 22:00 Non-rebreather 15 30 07/24/22 21:30 Non-rebreather 15 30 07/24/22 23:38 Non-rebreather 15 07/24/22 21:00 Non-rebreather 15 30 07/24/22 20:30 Non-rebreather 15 30 07/24/22 20:00 Non-rebreather 15 30 07/24/22 19:30 Non-rebreather 15 07/24/22 19:00 Non-rebreather 15 07/24/22 20:48 Non-rebreather 15
[2022-07-25] MEDS: ENOXAPARIN INJ 40 MG/0.4 ML SYR SQ SCH (08:38)
[2022-07-25] MEDS: ASPIRIN 81 MG ECTAB PO SCH (08:38)
[2022-07-25] MEDS: METOPROLOL SUCC 25MG EXT REL TAB PO SCH (08:38)
[2022-07-25] MEDS: LIDOCAINE 5% 1 PATCH TD SCH (08:38)
[2022-07-25] MEDS: UMECLIDINIUM/VILANTEROL 62.5/25MCG 7 PUFFS/INHALER INH SCH (08:39)
[2022-07-25] MEDS: FLUTICASONE FUROATE 100MCG 14 PUFFS/INHALER INH SCH (08:39)
[2022-07-25] MEDS ORDERED: ALBUT/IPRATROP 3MG/0.5MG NEB 3 ML VIAL NEB STA (09:06)
[2022-07-25] MEDS ORDERED: ALBUT/IPRATROP 3MG/0.5MG NEB 3 ML VIAL NEB PRN (09:07)
--- NOTE | 2022-07-25 09:31 | Pulmonology Progress Note ---
Date of Service July 25, 2022 Assessment & Plan (1) Acute and chronic respiratory failure with hypoxia: (2) COPD (chronic obstructive pulmonary disease): (3) Pneumonia: (4) Small cell lung cancer: (5) Brain lesion: Plan Attending: Dr. Tomlinson Impression: This is a 77-year-old male with known small cell carcinoma. He has a large obstructing mass demonstrated on CT of the chest with probable pleural involvement. Patient presented with increased shortness of br eath on 07/23/2022. Thoracentesis was attempted in the emergency department with no significant pleural fluid collected. Postprocedural chest x- ray showed no pneumothorax. Follow-up chest x-ray the next morning showed small apical pneumothorax. This is persistent to this morning's chest x-ray with maximum separation of 3.5 cm. Patient does have COPD with greater than [id number] smoking history. No PFTs are available for review. Patient has indicated his desire to stop treatment and go home on hospice. Palliative care has been consulted and has seen the patient. Anticipated transfer home today at 1600 with [facility] hospice. Recommendations: 1. Pneumothorax: * This is most likely from the attempted thoracentesis that I performed on 07/23/2022. This is stable at this time and most likely is not contributing to the patient's hypoxia and shortness of breath * I would not intervene with pigtail catheter or chest tube at this time due to patient's hospice status and anticipation of discharge later today * In a healthy individual, this would most likely resolve in the next several days without intervention * I would not recommend any further imaging but would treat symptomatically 2. Small cell carcinoma: * CT scan of the chest with large mass which most likely is metastatic small cell carcinoma * Discussed findings with family and patient on Saturday on the day of admission * Patient desires no further intervention or testing or diagnostics * Continue coordinate with case management to discharge home on hospice and focus on palliative care 3. Tobacco abuse: * Lifelong smoker with greater than [id number] history * No pulmonary function tests available * Most likely has COPD. Would target SaO2 between 85 and 90% 4. Pneumonia: * Patient being treated empirically for pneumonia. * Imaging most likely represents mass from known malignancy rather than pneumonia * Procalcitonin x2 was been negative with most recent procalcitonin this morning at 0.17 ng/mL. * Patient has no leukocytosis and no fever. While antibiotics most likely will not harm the patient, they will not provide any symptomatic relief either * Would recommend discontinuing antibiotics and focus on palliation 5. Hypoxia: * Multifactorial to all of the above * Would titrate SPO2 to 85-90% * Patient would benefit from oral morphine for air hunger * Continue to treat symptomatically and provide palliative care This patient was discussed with Dr. Tomlinson this morning. The pulmonary service will sign off at this time. Please feel free to contact us for any direct questions or further recommendations. Admission and Anticipated Discharge Date Admission Date: July 23, 2022 Subjective Attending: Dr. Tomlinson This is a 77-year-old male that was admitted on Saturday for acute on chronic respiratory failure with hypoxia. Patient had CT scan done which revealed moderate pleural effusion with evidence of probable malignant tumor. Patient does have history of small cell carcinoma. A thoracentesis was attempted with no significant fluid output. Postoperative chest x-ray showed no evidence of pneumothorax. Routine chest x-ray the next morning did show small pneumothorax. This has persisted and shows a maximal pleural Of 3.2 cm on this morning's film. Patient denies any chest pain or tightness. He has no hemoptysis. No significant sputum with cough. He denies any fever or chills. Patient does report increased shortness of breath and is currently on a nonrebreather. He did receive some morphine sulfate yesterday which helped with his air hunger. Patient has been seen by palliative and currently case management is helping to assist with placement at home on hospice per patient and family wishes. Although I think that the pneumothorax is small enough that it would not require intervention, I discussed with the patient and he again affirms no invasive procedures such as pigtail catheter or chest tube The patient has no other acute complaints. Review of Systems Review of Systems: A total of 10 systems was reviewed and is negative other than as listed in the HPI Physical Exam Physical Exam: GENERAL : Patient appears to be more tired than when I saw him on Saturday. He does also demonstrate increased work of breathing but is in good spirits and jovial in conversation. EYES: No icterus, gaze conjugate. Pupils equal and round NOSE: No evidence of epistaxis MOUTH: No lesions or candidiasis. Nonrebreather is in place NECK: Supple LUNGS: Diminished breath sounds throughout with scattered wheezes throughout as well. No cough with deep inspiration. No paradoxical chest wall movement. Patient does appear to be using some accessory muscles for breathing HEART: Regular, tachycardic with a rate around 102 bpm ABDOMEN: Soft, NT, ND, BS Present EXTREMITIES: No LE edema, pedal pulses intact and equal bilaterally. No calf pain or tenderness. No asymmetrical edema. NEURO: A&OX3 Results & Data Results & Data ([facility]) Vital Signs (Past 12 Hours) Vital Signs Temp Pulse Pulse Resp BP BP Pulse Ox 07/25/22 09:11 118 H 20 97 07/25/22 08:31 07/25/22 08:31 07/25/22 08:30 22 07/25/22 08:00 24 07/25/22 07:30 20 07/25/22 07:00 22 07/25/22 08:05 37.1 C 103 H 20 104/66 96 07/25/22 07:24 107 H 07/25/22 05:30 22 100 07/25/22 05:00 22 100 07/25/22 04:30 22 100 07/25/22 04:00 22 100 07/25/22 03:30 22 100 07/25/22 03:14 36.8 C 110 H 22 108/72 100 07/25/22 03:32 07/25/22 03:00 22 99 07/24/22 23:59 118 H 07/25/22 00:30 22 99 07/25/22 00:00 22 99 07/24/22 23:30 22 99 07/24/22 23:00 22 99 07/24/22 22:30 22 99 07/24/22 22:00 22 99 07/24/22 23:38 37.5 C 112 H 22 101/66 99 O2 Del Method O2 Flow Rate FiO2 07/25/22 09:11 Non-rebreather 07/25/22 08:31 Non-rebreather 07/25/22 08:31 Non-rebreather 07/25/22 08:30 Non-rebreather 07/25/22 08:00 Nasal Cannula 6 07/25/22 07:30 Non-rebreather 07/25/22 07:00 Non-rebreather 07/25/22 08:05 Non-rebreather 07/25/22 07:24 07/25/22 05:30 Non-rebreather 15 07/25/22 05:00 Non-rebreather 15 30 07/25/22 04:30 Non-rebreather 15 07/25/22 04:00 Non-rebreather 15 07/25/22 03:30 Non-rebreather 15 07/25/22 03:14 Non-rebreather 15 07/25/22 03:32 Non-rebreather 15 07/25/22 03:00 Non-rebreather 15 30 07/24/22 23:59 07/25/22 00:30 Non-rebreather 15 30 07/25/22 00:00 Non-rebreather 15 30 07/24/22 23:30 Non-rebreather 15 30 07/24/22 23:00 Non-rebreather 15 30 07/24/22 22:30 Non-rebreather 15 30 07/24/22 22:00 Non-rebreather 15 30 07/24/22 23:38 Non-rebreather 15 Critical Care Results & Data Vital Signs (Past 12 Hours) Vital Signs Temp Pulse Pulse Pulse Resp BP BP 07/25/22 12:30 22 07/25/22 12:00 07/25/22 11:30 07/25/22 08:00 107 H 07/25/22 12:10 36.5 C 107 H 104 H 22 92/63 L 104/66 07/25/22 11:19 36.5 C 104 H 22 92/63 L 07/25/22 11:00 07/25/22 09:00 07/25/22 10:30 07/25/22 10:00 07/25/22 09:30 07/25/22 09:00 07/25/22 09:11 118 H 20 07/25/22 08:31 07/25/22 08:31 07/25/22 08:30 07/25/22 08:00 07/25/22 07:30 20 07/25/22 07:00 07/25/22 08:05 37.1 C 103 H 20 104/66 07/25/22 07:24 107 H 07/25/22 05:30 07/25/22 05:00 07/25/22 04:30 07/25/22 04:00 22 07/25/22 03:30 22 07/25/22 03:14 36.8 C 110 H 22 108/72 07/25/22 03:32 07/25/22 03:00 22 Pulse Ox Pulse Ox O2 Del Method O2 Del Method O2 Flow Rate FiO2 07/25/22 12:30 Oxymask 5 07/25/22 12:00 93 Oxymask 5 07/25/22 11:30 Oxymask 5 07/25/22 08:00 07/25/22 12:10 92 07/25/22 11:19 92 Oxymask 5 07/25/22 11:00 Oxymask 5 07/25/22 09:00 100 Non-rebreather 07/25/22 10:30 100 Non-rebreather 07/25/22 10:00 Non-rebreather 07/25/22 09:30 Non-rebreather 07/25/22 09:00 Non-rebreather 07/25/22 09:11 97 Non-rebreather 15 07/25/22 08:31 Non-rebreather 07/25/22 08:31 Non-rebreather 07/25/22 08:30 Non-rebreather 07/25/22 08:00 Nasal Cannula 6 07/25/22 07:30 Non-rebreather 07/25/22 07:00 Non-rebreather 15 07/25/22 08:05 96 Non-rebreather 15 07/25/22 07:24 07/25/22 05:30 100 Non-rebreather 15 07/25/22 05:00 100 Non-rebreather 15 30 07/25/22 04:30 100 Non-rebreather 15 07/25/22 04:00 100 Non-rebreather 15 07/25/22 03:30 100 Non-rebreather 15 07/25/22 03:14 100 Non-rebreather 15 07/25/22 03:32 Non-rebreather 15 07/25/22 03:00 99 Non-rebreather 15 30 Lab & Micro Results (Past 24 Hours) No Data to Display No Data to Display No Data to Display Microbiology 07/23/22 10:06 Aerobic Blood Culture - Preliminary Blood No growth in Aerobic bottle after 48 hours. Anaerobic Blood Culture - Preliminary No growth in Anaerobic bottle after 48 hours. 07/23/22 09:45 Aerobic Blood Culture - Preliminary Blood No growth in Aerobic bottle after 48 hours. Anaerobic Blood Culture - Preliminary No growth in Anaerobic bottle after 48 hours. Diagnostic Findings (Past 24 Hours) Chest X-Ray 07/24/22 13:58 XR chest 1V portable HISTORY: 77 years-old Male follow up ptx follow-up study in a patient with a right-sided pneumothorax COMPARISON: Chest radiograph 07/24/2022 TECHNIQUE: Portable AP view of the chest FINDINGS: Cardiac silhouette is enlarged. Left subclavian pacer/AICD redemonstrated. Right-sided hydropneumothorax redemonstrated. The pneumothorax component has mildly increased in size, now with pleural separation of 3 cm, previously 2.0 cm. Right upper lobe mass with postobstructive pneumonitis is again noted. Persistent right basilar opacities. The left lung is predominantly clear. Degenerative changes of the shoulders and spine with levoscoliosis of the thoracolumbar junction. IMPRESSION: 1. Right-sided hydropneumothorax redemonstrated. The pneumothorax component has mildly increased in size from the study obtained this morning. 2. Right upper lobe mass with postobstructive pneumonitis again noted. ACT 112: Negative or not required by law. The above report was generated using voice recognition software. It may contain grammatical, syntax or spelling errors. Electronically signed by: Eliezer Champagne M.D. 07/24/2022 2:37 PM Chest X-Ray 07/25/22 06:58 XR chest 1V portable HISTORY: Follow-up right-sided pneumothorax. COMPARISON: Chest 07/24/2022. FINDINGS: Small right apical pneumothorax persists with a maximal pleural gap of 3.2 cm. This is similar to the prior study. The left lung is essentially clear. The left-sided pacemaker. The heart remains enlarged. Near-complete opacification of the right lung which has progressed in the interval. IMPRESSION: 1. Small right apical pneumothorax persists. 2. Near-complete opacification of the right lung which has progressed in the interval. ACT 112: Negative or not required by law. Electronically signed by: Jorge Berkowitz M.D. 07/25/2022 9:37 AM MR brain wo con 06/25/2022 HISTORY: 77 years-old Male CVA acute stroke like symptoms COMPARISON: Head CT 06/24/2022 TECHNIQUE: Multiplanar multisequence MRI of the brain was obtained without the use of IV contrast. FINDINGS: Confirmation of the acute infarct within the left parietal and posterior temporal lobes extending into the insular ribbon. Area of infarcted brain parenchyma measures up to approximately 6 cm. There is increased signal on the diffusion-weighted series with decreased signal on the ADC map and moderately increased T2/FLAIR signal within the cortex. Additionally, there is a 1.1 cm focus of ill-defined restricted diffusion chronic lacunar infarcts within the thalami. Within the inferior right cerebellar hemisphere on image 3 series 5 demonstrating decreased signal on the ADC map. There is no acute intracranial hemorrhage, midline shift, abnormal extra-axial collection, hydrocephalus or intracranial mass. There is a thin-walled intra- axial subcortical 1.1 cm cyst in the right occipital lobe on image 13 series 6 with mild surrounding increased FLAIR signal. Involutional changes. Mild T2/FLAIR hyperintense foci noted throughout the white matter suggestive of chronic microvascular ischemic disease. Cerebral venous sinuses and major arterial flow voids appear patent. Prior bilateral lens repair. IMPRESSION: 1. Confirmation of the acute infarct within the left parietal and posterior left temporal lobes extending into the posterior aspect of the left insular cortex. 2. Additional 1.1 cm acute or subacute infarct within the inferior right cerebellum. 3. There is an indeterminate intra-axial subcortical 1.1 cm cystic lesion within the right occipital lobe which appears to follow CSF on all sequences and demonstrates mild peripheral increased FLAIR signal. A 6 month follow-up brain MRI with and without IV contrast is recommended. ACT 112: Negative or not required by law. The above report was generated using voice recognition software. It may contain grammatical, syntax or spelling errors. Electronically signed by: Eliezer Champagne M.D. 06/25/2022 1:07 PM I & O Totals 24 Hours 07/24/22 07/25/22 07/26/22 06:59 06:59 06:59 Intake Total 1860.56 / 1860.56 2753.666 / 2753.666 1000 / 1000 Output Total 350 / 350 350 / 350 Balance 1510.56 / 1510.56 2403.666 / 2403.666 1000 / 1000 Cumulative 07/23/22 09:07 thru 07/25/22 12:10 Intake Total 5614.226 Output Total 700 Balance 4914.226 RT Ventilator Mngmt (Last Documented) Ventilator Ordered Settings Respiratory Rate 22 07/25/22 12:30 Fraction of Inspired Oxygen 30 07/25/22 05:00 Ventilator - PT Measurements Respiratory Rate 22 PG Care Time/CCT Total # of Minutes Spent Total Time Spent with Patient: Total time spent is greater than 50% in coordination of care (as documented) at patient's floor/unit and/or counseling patient:30 Coding Level of Care Code 88216 Subseq Hosp Care Lvl 2 Diagnoses Acute and chronic respiratory failure with hypoxia J96.21 COPD (chronic obstructive pulmonary disease) J44.9 Pneumonia J18.9 Small cell lung cancer C34.90 Brain lesion G93.9 Time Spent (min) 30
--- NOTE | 2022-07-25 09:39 | XRay Report ---
XR chest 1V portable HISTORY: Follow-up right-sided pneumothorax. COMPARISON: Chest 07/24/2022. FINDINGS: Small right apical pneumothorax persists with a maximal pleural gap of 3.2 cm. This is harmeet lar to the prior study. The left lung is essentially clear. The left-sided pacemaker. The heart remai ns enlarged. Near-complete opacification of the right lung which has progressed in the interval. IMPRESSION: 1. Small right apical pneumothorax persists. 2. Near-complete opacification of the right lung which has progressed in the interval. ACT 112: Negative or not required by law. Electronically signed by: Jorge Berkowitz M.D. 07/25/2022 9:37 AM
--- NOTE | 2022-07-25 11:20 | Discharge Summary ---
Date of Service July 25, 2022 Admission HPI Per Admitting Provider 77yo M w/ hx of recent diagnosis of small cell lung cancer and possible colon cancer who presents with worsening shortness of breath. The patient was recently admitted to the hospital with shortness of breath and found to have small cell lung cancer on bronchoscopy. He was seen by oncology, but has decided to not pursue further therapy. In addition, he has a colon mass that may be cancer. Colonoscopy showed benign adenoma; however, GI note indicates that they feel it is likely he may have cancer deeper down. He has declined repeat colonoscopy to check. He and his report that about 1 week ago, he started to have worsening shortness of breath. His turned his home O2 up to 3L from 2L, and he has been wearing it more consistently. In addition, he has worn it more frequently as he reports he had been wearing it somewhat "PRN" previously. He reports some increase in cough and sputum production, though not necessarily sputum purulence. He reports some chills at home, but no subjective fevers and no measured temps. Admission Exam Per Admitting Provider Constitutional: + ill appearing and + frail appearing Eyes: EOM intact bilaterally; no conjunctival abnormality ENMT: external ear and nose normal, oropharynx normal Neck: trachea midline, no thyromegaly normal visual inspection Respiratory: + respiratory distress, + uses accessory muscles, + cough and + tachypneic Auscultation: + diminished lung sounds and + crackles Cardiovascular: Rate/Rhythm: regular rhythm and + tachycardic Vessels: no JVD Extremities: no edema Gastrointestinal (Abdomen): Inspection/Auscultation: abdomen normal to inspection; abdomen not distended Musculoskeletal: no cyanosis or clubbing, extremities motor strength 5/5 Skin: no rashes, warm and dry Neurologic: moves all extremities and awake Psychiatric: Orientation: alert, oriented to person and cooperative Principal Diagnosis Metastatic Lung Cancer Discharge Exam Constitutional: well-appearing, no acute distress HEENT: NCAT, no conjunctival injection CV: regular rhythm, no murmur appreciated, extremities well-perfused, no LE edema Resp: diminished breath sounds, no wheezes/rales/rhonchi appreciated, increased work of breathing, accessory muscle use GI: soft, nondistended, nontender, BS normoactive MSK: no gross deformities appreciated Skin: warm, dry, no rash appreciated Neuro: alert, oriented, no focal neurologic deficit appreciated Discharge Data Allergies Allergy/AdvReac Type Severity Reaction Status Date / Time No Known Allergies Allergy Verified 07/10/22 13:53 Consultations 07/23/22 11:27 ED Decision to Admit Stat 07/23/22 12:31 Consult Pulmonology Routine 07/24/22 12:53 Consult Palliative Care Routine 07/24/22 15:10 Consult Cardiology Routine Procedures Performed Thoracentesis Ordered Studies 07/23/22 11:23 CT angio chest PE protocol Stat FINDINGS: Left subclavian pacer/AICD is in place. There is occlusion of a subsegmental branch within the anterior segment of the right upper lobe shown on axial image 213 of 321. This could be due to a pulmonary embolus or occlusion of this vessel by adjacent tumor. No additional pulmonary emboli are noted. However, there is significant mass effect and narrowing upon multiple right- sided pulmonary arteries due to right hilar adenopathy and a central right lung mass. There is occlusion of the right superior pulmonary vein. There is no thoracic aortic dissection. A hiatal hernia is noted. Mild dilatation of the ascending aorta, measuring 4.1 cm. No pericardial effusion is present. A moderate to large right pleural effusion has significantly increased in size since CT of June 25, 2022. Numerous right-sided pleural nodules are noted. This represents a malignant effusion. There is a pathologic fracture with bony erosion of the posterior right second rib. Thoracic lymphadenopathy has significantly progressed since CT of June 25, 2022. Index right supraclavicular node measures 1.8 x 1.3 cm. This was previously normal in size. Conglomerate right paratracheal adenopathy measures 4.4 x 2.9 cm. Extensive right hilar adenopathy has progressed. Central right lung mass is difficult to differentiate from postobstructive pneumonia however the mass measures approximately 11.8 x 7.5 cm. This has increased in size significantly since prior CT. There is emphysema. No significant abnormalities within the left lung are present. Visualized portions of the upper abdomen demonstrate increase in size of right adrenal lesions consistent with metastases. Upper abdominal adenopathy is partially imaged. This has progressed. IMPRESSION: 1. Occlusion of a subsegmental branch within the anterior segment of the right upper lobe. This could be due to a small pulmonary embolus or occlusion of this vessel by adjacent tumor. Extrinsic mass effect with narrowing of multiple right-sided pulmonary arteries due to lymphadenopathy and the central right lung mass. 2. Significant increase in size of the central right lung mass consistent with known small cell lung carcinoma. Associated postobstructive pneumonia. Increase in a moderate to large malignant right pleural effusion with progression of thoracic and upper abdominal lymphadenopathy, as detailed above. 3. Pathologic fracture of the posterior right second rib. 07/23/22 13:09 sono, invasive monitoring [US point of care ultrasound] Routine Hospital Course (1) Small cell lung cancer: Small Cell Lung Cancer - Diagnosed on 06/25 on bronchoscopy. Has decided not to pursue treatment. - CTA on admission indicates worsening cancer with large right-sided pleural effusion. - Pulm consulted; thoracentesis performed, but was not successful due to lung mass. He did have a small pneumothorax vs trapped lung the morning following the procedure and he was seen again by pulm who did not recommend any further procedures. - Discussed goals of care and palliative also saw him. Ultimate plan is home with hospice. They understood the severity of the diagnosis and the likelihood for rapid decompensation. His oxygen was weaned to a point where we were able to discharge him home. Pleural Effusion -Right sided pleural effusion that is most likely malignant - Afebrile, but with recent hospitalization in addition to CT showing a possible postobstructive pneumonia; we will continue to treat with Zosyn for hospital acquired pneumonia and plan to transition to ciprofloxacin at home for a total course of 7 days. Anemia Hemoglobin= 10.2, was 11.6 on admission. Microcytic- most likely iron def vs anemia of chronic disease Will hold off on further workup at this time CAD No chest pain. BMS to mid-LAD in 02/2015. - Continue ASA - Continue beta-amaya History of CVA During last admission. Received tPA. Brain MRI on 06/25 showed acute infarct within the left parietal and posterior left temporal lobes and 1.1 cm acute or subacute infarct within the inferior right cerebellum. - Continue ASA Pacemaker Medtronic ICD placed in 03/2017 for primary prevention (ie, must have had prolonged EF <= 35%) as well as sinus note dysfunction. - Cardiology consulted to turn off ICD COPD - Continue home maintenance inhaler (or formulary equivalent) - DuoNebs PRN Benign Hypertension - Continue home beta-amaya (2) CAD (coronary artery disease): (3) Acute CVA (cerebrovascular accident): (4) Pacemaker: (5) COPD (chronic obstructive pulmonary disease): (6) Benign hypertension: Total Time Total Time Spent Total Time Spent (In Minutes): 45 Discharge Plan Discharge Items Patient Disposition: Hospice - Home Reason For Visit: LUNG CANCER,POSSIBLE PNEUMONIA Discharge Diagnosis: Right Pleural Effusion Small Cell Lung Cancer Activity: Per Instructions section Non-emergency contact: Primary Care Provider Call non-emergency contact if: you have any medication questions and your pain is not controlled Follow-up/Referrals: Estrella Doan CRNP [Primary Care Provider] - Diet: Regular Addtl Attending Provider Instructions: You were admitted to [facility] from 07/23 to 07/25 for shortness of breath that was determined to be due to cancerous growth, fluid and possible infection in your right lung. Our lung doctor (Environmental Studies Professor) tried to use a needle to get the fluid out of your lung, but they were not able to get any fluid out because of the lung cancer. We consulted our social security specialist who discussed long-term goals of care with you and your family. Our Laundry Housekeeper was consulted to turn off your implanted defibrillator, in accordance with your wishes and goals of care. You will be discharged on 07/25 and will be going home with hospice care. Medications and supplemental oxygen were sent to your home. Please continue to take antibiotics (Ciprofloxacin twice per day) for the next 4 days for the lung infection. Please call the hospice company if you have any questions about your oxygen or medications. You can continue to take your home inhalers, which should help with your breathing. Pending Studies at Discharge: No Stand-Alone Forms: My [facility] Medications and DC Order Prescriptions: Continued metoprolol succinate 25 mg tablet extended release 24 hr 25 mg PO DAILY Qty: 90 3RF omeprazole 20 mg capsule,delayed release(DR/EC) 20 mg PO DAILY Qty: 90 3RF atorvastatin 40 mg tablet 40 mg PO DAILY Qty: 90 3RF Trelegy Ellipta 100-62.5-25 mcg blister with device 1 inh inhalation DAILY Qty: 90 3RF albuterol sulfate 90 mcg/actuation HFA aerosol inhaler See Rx Instructions inhalation QID PRN (Reason: shortness of breath or wheezing) Qty: 18 11RF Rx Instructions: 1-2 puffs inhalation four times daily PRN; (DME) Flutter Valve Device See Rx Instructions .Route Qty: 1 0RF Rx Instructions: As directed ibuprofen 600 mg tablet 1,200 mg PO QID PRN (Reason: pain) Ocuvite Adult 50 Plus 250-5-1 mg capsule 1 cap PO DAILY multivitamin tablet 1 tab PO DAILY aspirin 81 mg tablet 81 mg PO DAILY Qty: 30 (DME) oxygen 3l per NC See Rx Instructions .Route .MEDSUPPLY Qty: 1 0RF Rx Instructions: As directed Discharge Orders: Discharge Order (Routine); Ordered 07/25/22 Ordered By: Francisco Matos Admission Data Admit Date/Time: 07/23/22 11:57 Attending Provider: Jatin Black Admit Provider: Jamie Ho Primary Care Provider: Estrella Doan Other Providers: Jamie Ho ; Landon Tomlinson ; Deena Mcgowan ; [facility] ; Fidel Kramer Other Interventions: Discharge Summary Assessment (RN) Last Done: 07/25/22 13:55 Supervising Physician Co-Signing Physician Notes Attending attestation Pt seen and examined in concert with Dr. Tavarez. In agreement with the documented findings as noted in the resident documentation with any exceptions or additions as noted here. Stable dyspnea controlled with supplemental O2 and inhaler treatments. Patient reiterates goals of care with going home today to hospice at home. Discussed w/ Aniket Marr re: no further procedures during this admission. VS, nursing notes reviewed. On examination, S1/S2 nl, mild tachycardia, no MCG. decreased BS throughout, worse at the b/l bases. Abd NT/ND BS+ve Pleural effusion s/p thoracentesis w/ pneumothorax - pulmonology, palliative consult - transferring home w/ home hospice on 5L O2 with supportive care and symptom mgmt Infectious effusion/pneumonia - transitioned to cipro to complete course Else see resident documentation as noted. Total attending physician time spent with this patient's care on the day of discharge: 45 minutes.
[2022-07-25] MEDS: MoRPHine SULFATE 5 MG/0.25 ML UDP PO PRN (12:00)
== END 2022-07-25 16:33 | disposition hospice, home (50) | DRG 180 ==
LOC: ED 09:30 → 2N 11:57 → SUATTDRO 11:57 → 2N 15:00